=== PATIENT | female | born 1970 | race Caucasian/White ===

== ENCOUNTER 2019-06-27 11:16 | Observation (INO) | payer OTHER ==
[2019-06-27 12:10] LABS: Basophils % (A) 0 %; Eosinophils # (A) 0.1 k/uL (0-0.7); Eosinophils % (A) 2 %; HCT 38.3 % (34.0-46.0); HGB 12.3 gm/dL (11.4-16.0); Hypochromasia Slight; Lymphocytes # (A) 0.1 k/uL (1.0-4.8); Lymphocytes % (A) 2 %; MCH 31.3 pg (25.0-35.0); MCHC 32.2 g/dL (31.0-37.0); MCV 97.3 fL (80.0-100.0); Mean Platelet Volume 7.6; Monocytes # (A) 0.1 k/uL (0-1.0); Monocytes % (A) 2 %; Neutrophils # (A) 5.4 k/uL (1.3-7.7); Neutrophils % (A) 93 %; Platelet Count 414 k/uL (150-450); RBC 3.93 m/uL (3.80-5.40); RDW 15.5 % (11.5-15.5); WBC 5.8 k/uL (3.8-10.6)
[2019-06-27 12:15] LABS: Albumin 4.2 g/dL (3.5-5.0); Calcium 9.3 mg/dL (8.4-10.2); Potassium 4.6 mmol/L (3.5-5.1); Total Bilirubin 0.5 mg/dL (0.2-1.3); Total Protein 7.2 g/dL (6.3-8.2)
[2019-06-27 12:26] LABS: INR 0.8 (<1.2); Partial Thromboplastin Time 22.1 sec (22.0-30.0); Prothrombin Time 9.3 sec (9.0-12.0)
--- NOTE | 2019-06-27 12:26 | XR ---
EXAMINATION TYPE: XR chest 2V DATE OF EXAM: 06/27/2019 COMPARISON: Prior chest 03/26/2014 HISTORY: Chest pain and dizziness TECHNIQUE: Frontal and lateral views of the chest are obtained. FINDINGS: There are overlying cardiac leads. Probable artifacts over the proximal right humerus. Ther e is no focal air space opacity, pleural effusion, or pneumothorax seen. The cardiac silhouette size is within normal limits. The osseous structures are intact. Surgical clips present in the upper ab domen. IMPRESSION: No acute cardiopulmonary process.
[2019-06-27] MEDS ORDERED: NITROGLYCERIN SL TABS 0.4 MG TAB SUBLINGUAL STA ×3 (12:28)
--- NOTE | 2019-06-27 12:32 | ED ---
General Adult HPI - General Chief complaint: Chest Pain Stated complaint: Chest Pain Time Seen by Provider: 06/27/19 11:31 Source: patient, RN notes reviewed Mode of arrival: wheelchair Limitations: no limitations - History of Present Illness Initial comments: Patient is a [id number] female presenting to the emergency Department with complaints of chest discomfort. Onset of symptoms was this morning. Patient does have history of several symptoms previously, sometimes associated with work. Patient plaints of pressure in her chest currently rated 7/10. Patient did take aspirin this morning. Patient does have some associated dyspnea. No radiation. No nausea. - Related Data Home Medications Medication Instructions Recorded Confirmed Albuterol Sulfate [Proventil Hfa] 2 puff IH DAILY PRN 03/27/14 06/27/19 Atorvastatin [Lipitor] 20 mg PO HS 03/27/14 06/27/19 Ibuprofen [Motrin] 800 mg PO Q8HR PRN 03/27/14 06/27/19 Potassium Gluconate 99 mg PO DAILY 03/27/14 06/27/19 ARIPiprazole [Abilify] 10 mg PO HS 06/27/19 06/27/19 Baclofen [Lioresal] 20 mg PO BID 06/27/19 06/27/19 Cholecalciferol [Vitamin D3 (25 1,000 unit PO HS 06/27/19 06/27/19 Mcg = 1000 Iu)] DULoxetine HCL [Cymbalta] 60 mg PO HS 06/27/19 06/27/19 Melatonin 10 mg PO HS 06/27/19 06/27/19 diphenhydrAMINE HCL [Benadryl] 25 mg PO HS PRN 06/27/19 06/27/19 Allergies Allergy/AdvReac Type Severity Reaction Status Date / Time Penicillins Allergy Rash/Hives Verified 06/27/19 14:15 clindamycin HCl AdvReac Itching Verified 06/27/19 14:15 [From Cleocin] clindamycin palmitate HCl AdvReac Itching Verified 06/27/19 14:15 [From Cleocin] clindamycin phosphate AdvReac Itching Verified 06/27/19 14:15 [From Cleocin] escitalopram oxalate AdvReac SEVERE Verified 06/27/19 14:15 [From Lexapro] HEADACHE levofloxacin [From Levaquin] AdvReac Itching Verified 06/27/19 14:15 Review of Systems ROS Statement: Those systems with pertinent positive or pertinent negative responses have been documented in the HPI. ROS Other: All systems not noted in ROS Statement are negative. Constitutional: Denies: fever Eyes: Denies: eye pain ENT: Denies: ear pain Respiratory: Reports: as per HPI, dyspnea Cardiovascular: Reports: chest pain, palpitations Endocrine: Denies: fatigue Gastrointestinal: Denies: abdominal pain Genitourinary: Denies: dysuria Musculoskeletal: Denies: back pain Skin: Denies: rash Neurological: Denies: headache Past Medical History Past Medical History: Asthma, Chest Pain / Angina, COPD, Fibromyalgia, Hyperlipidemia, Hypertension Additional Past Medical History / Comment(s): VERTIGO History of Any Multi-Drug Resistant Organisms: None Reported Past Surgical History: Bariatric Surgery, Cholecystectomy, Hernia Repair, Tubal Ligation Additional Past Surgical History / Comment(s): GANGLION CYST FROM LT WRIST, CLAIRE-EN-Y 1999 Past Anesthesia/Blood Transfusion Reactions: No Reported Reaction Past Psychological History: Anxiety, Bipolar, Depression Smoking Status: Never smoker Past Alcohol Use History: None Reported Past Drug Use History: None Reported General Exam Limitations: no limitations General appearance: alert, in no apparent distress Head exam: Present: normocephalic Eye exam: Present: normal appearance ENT exam: Present: normal oropharynx Neck exam: Present: normal inspection Respiratory exam: Present: normal lung sounds bilaterally. Absent: chest wall tenderness Cardiovascular Exam: Present: regular rate, normal rhythm Expanded Peripheral pulses: 2+: Radial (R), Radial (L), Posterior Tibialis (R), Posterior Tibialis (L), Dorsalis Pedis (R), Dorsalis Pedis (L) GI/Abdominal exam: Present: soft. Absent: tenderness Extremities exam: Present: normal inspection. Absent: pedal edema, calf tenderness Neurological exam: Present: alert Psychiatric exam: Present: normal affect, normal mood Skin exam: Present: normal color Course Vital Signs 06/27/19 06/27/19 11:22 12:40 Temperature 97.8 F Pulse Rate 118 H 101 H Respiratory 21 18 Rate Blood Pressure 96/68 114/76 O2 Sat by Pulse 100 99 Oximetry EKG Findings - EKG Comments: EKG Findings:: Sinus tachycardia 107. MS 138. QRS 86. QT 348. QTC 46 he 4. Left axis. Septal Q waves. No acute ST change. Medical Decision Making - Medical Decision Making Patient reevaluated and updated. Case was discussed in detail with Dr. Otto, who will admit covered for hospital call. - Lab Data Result diagrams: 06/27/19 11:41 06/27/19 11:41 Lab Results 06/27/19 06/27/19 06/27/19 Range/Units 11:41 11:41 11:41 WBC 5.8 (3.8-10.6) k/uL RBC 3.93 (3.80-5.40) m/uL Hgb 12.3 (11.4-16.0) gm/dL Hct 38.3 (34.0-46.0) % MCV 97.3 (80.0-100.0) fL MCH 31.3 (25.0-35.0) pg MCHC 32.2 (31.0-37.0) g/dL RDW 15.5 (11.5-15.5) % Plt Count 414 (150-450) k/uL Neutrophils % 93 % Lymphocytes % 2 % Monocytes % 2 % Eosinophils % 2 % Basophils % 0 % Neutrophils # 5.4 (1.3-7.7) k/uL Lymphocytes # 0.1 L (1.0-4.8) k/uL Monocytes # 0.1 (0-1.0) k/uL Eosinophils # 0.1 (0-0.7) k/uL Basophils # 0.0 (0-0.2) k/uL Hypochromasia Slight PT 9.3 (9.0-12.0) sec INR 0.8 (<1.2) APTT 22.1 (22.0-30.0) sec D-Dimer (<0.60) mg/L FEU Sodium 139 (137-145) mmol/L Potassium 4.6 (3.5-5.1) mmol/L Chloride 112 H (98-107) mmol/L Carbon Dioxide 16 L (22-30) mmol/L Anion Gap 11 mmol/L BUN 32 H (7-17) mg/dL Creatinine 1.01 (0.52-1.04) mg/dL Est GFR (CKD-EPI)AfAm 75 (>60 ml/min/1.73 sqM) Est GFR (CKD-EPI)NonAf 65 (>60 ml/min/1.73 sqM) Glucose 135 H (74-99) mg/dL Calcium 9.3 (8.4-10.2) mg/dL Total Bilirubin 0.5 (0.2-1.3) mg/dL AST 46 H (14-36) U/L ALT 27 (4-34) U/L Alkaline Phosphatase 78 (38-126) U/L Troponin I (0.000-0.034) ng/mL Total Protein 7.2 (6.3-8.2) g/dL Albumin 4.2 (3.5-5.0) g/dL 06/27/19 06/27/19 Range/Units 11:41 11:41 WBC (3.8-10.6) k/uL RBC (3.80-5.40) m/uL Hgb (11.4-16.0) gm/dL Hct (34.0-46.0) % MCV (80.0-100.0) fL MCH (25.0-35.0) pg MCHC (31.0-37.0) g/dL RDW (11.5-15.5) % Plt Count (150-450) k/uL Neutrophils % % Lymphocytes % % Monocytes % % Eosinophils % % Basophils % % Neutrophils # (1.3-7.7) k/uL Lymphocytes # (1.0-4.8) k/uL Monocytes # (0-1.0) k/uL Eosinophils # (0-0.7) k/uL Basophils # (0-0.2) k/uL Hypochromasia PT (9.0-12.0) sec INR (<1.2) APTT (22.0-30.0) sec D-Dimer 1.41 H (<0.60) mg/L FEU Sodium (137-145) mmol/L Potassium (3.5-5.1) mmol/L Chloride (98-107) mmol/L Carbon Dioxide (22-30) mmol/L Anion Gap mmol/L BUN (7-17) mg/dL Creatinine (0.52-1.04) mg/dL Est GFR (CKD-EPI)AfAm (>60 ml/min/1.73 sqM) Est GFR (CKD-EPI)NonAf (>60 ml/min/1.73 sqM) Glucose (74-99) mg/dL Calcium (8.4-10.2) mg/dL Total Bilirubin (0.2-1.3) mg/dL AST (14-36) U/L ALT (4-34) U/L Alkaline Phosphatase (38-126) U/L Troponin I <0.012 (0.000-0.034) ng/mL Total Protein (6.3-8.2) g/dL Albumin (3.5-5.0) g/dL - Radiology Data Radiology results: report reviewed (CT angios of the chest shows breathing during exam. No large central pulmonary embolism, otherwise limited. No acute process seen. Postsurgical changes upper abdomen. Possible underlying hiatal hernia versus thickening of the distal esophagus.), image reviewed (Chest x-ray shows no acute process.) Disposition Clinical Impression: Chest pain Disposition: ADMITTED IP TO THIS HOSP Is patient prescribed a controlled substance at d/c from ED?: No Referrals: Daniel Sauceda DO [Primary Care Provider] - 1-2 days Decision Time: 14:24
--- NOTE | 2019-06-27 14:02 | CT ---
EXAMINATION TYPE: CT angio chest DATE OF EXAM: 06/27/2019 COMPARISON: Radiograph same day HISTORY: 48-year-old female Chest pain, shortness of breath and cough TECHNIQUE: Contiguous axial scanning of the chest performed with IV Contrast, patient injected with 1 00 mL of Isovue 370. Coronal/sagittal MIP reconstructions performed. CT DLP: 387.2 mGycm Automated exposure control for dose reduction was used. FINDINGS: Heart normal size with trace anterior pericardial fluid/thickening and no flattening of the intervent ricular septum or reflux of contrast into the hepatic veins. There is extensive motion artifact with the patient breathing during the scan. Aorta normal caliber with bovine configuration to the aortic arch. Satisfactory opacification of the pulmonary arterial system. No large central pulmonary embolus. The degree of motion artifact limits assessment for pulmonary emboli within the lobar, segmental, and mor e distal arterial branches. No thoracic lymphadenopathy by CT size criteria. No consolidation or pleural effusion seen. Postsurgical change in the upper abdomen possible Valdemar-en-Y gastric bypass. There may be an underlyin g hiatal hernia versus irregular circumferential wall thickening of the distal esophagus, axial image 95. Cholecystectomy clips. Bones: No osseous destructive process. IMPRESSION: 1. THE PATIENT WAS FREE BREATHING DURING THE SCAN. NO LARGE CENTRAL PULMONARY EMBOLUS. MANY OF THE LO BAR, SEGMENTAL, AND MORE DISTAL ARTERIAL BRANCHES ARE ESSENTIALLY NONDIAGNOSTIC AND EMBOLI IN THESE L OCATIONS CANNOT BE ADEQUATELY EXCLUDED ON BASIS OF THIS STUDY. 2. NO ACUTE PULMONARY PROCESS SEEN. 3. POST SURGICAL CHANGE IN THE UPPER ABDOMEN, QUERY PRIOR VALDEMAR-EN-Y GASTRIC BYPASS. THERE IS EITHER A N UNDERLYING HIATAL HERNIA VERSUS IRREGULAR CIRCUMFERENTIAL WALL THICKENING OF THE DISTAL ESOPHAGUS. DIRECT VISUALIZATION RECOMMENDED TO EXCLUDE NEOPLASM.
[2019-06-27] MEDS ORDERED: NITROGLYCERIN SL TABS 0.4 MG TAB SUBLINGUAL PRN (14:24)
--- NOTE | 2019-06-27 16:28 | NM ---
EXAMINATION TYPE: NM pul vent and perfuse DATE OF EXAM: 06/27/2019 COMPARISON: Correlation CT chest same day HISTORY: 48-year-old female with shortness of breath and dyspnea TECHNIQUE: Utilizing inhalation of 41.4 mCi Tc 99m DTPA aerosol and intravenous injection of 4.4 mCi of Tc 99m MAA, ventilation and perfusion images are acquired post injection in multiple projections. FINDINGS: Technologist notes: Patient's arms were down during image acquisition. Normal radiotracer distribution is noted in the lungs. There is no evidence of mismatched defects. IMPRESSION: Very low probability for pulmonary embolus.
[2019-06-27] MEDS ORDERED: ALBUTEROL NEBULIZED 2.5 MG/3 ML INHALATION PRN (16:42)
[2019-06-27] MEDS ORDERED: MELATONIN 5 MG TABLET PO PRN (16:42)
[2019-06-27] MEDS ORDERED: SODIUM CHLORIDE 0.9% 1,000 ML IV SCH (16:45)
[2019-06-27] MEDS: SODIUM CHLORIDE 0.45% 1,000 ML IV SCH (16:56)
[2019-06-27 17:15] VITALS: RESP 18
[2019-06-27] MEDS: PANTOPRAZOLE 40 MG/10 ML VIAL IVP SCH (17:44)
--- NOTE | 2019-06-27 18:34 | P.HPIM ---
History of Present Illness Patient wasn't-year-old female came in with compensative chest burning sensation sensation which started today in the retrosternal area nonradiating and not associated with fever chills cough not associated diaphoresis chest pain res olved and patient was having some palpitations. Patient does have sinus tachycardia TSH will be obtained. Patient will be admitted to rule out acute coronary syndromes. Patient chest pain is mostly in assessment is not related to food not related to deep breathing but because of tachycardia and chest and patient underwent the CT angios the chest which was inconclusive because of which patient underwent VQ scan which did not show any evidence of a low probability of PE and patient was complaining of some nausea associated chest pain. Review of Systems REVIEW OF SYSTEMS: CONSTITUTIONAL: No fever, no malaise, no fatigue. HEENT: No recent visual problems or hearing problems. Denied any sore throat. CARDIOVASCULAR: No , orthopnea, PND, no palpitations, no syncope. PULMONARY: No shortness of breath, no cough, no hemoptysis. GASTROINTESTINAL: No diarrhea, NEUROLOGICAL: No headaches, no weakness, no numbness. HEMATOLOGICAL: Denies any bleeding or petechiae. GENITOURINARY: Denies any burning micturition, frequency, or urgency. MUSCULOSKELETAL/RHEUMATOLOGICAL: Denies any joint pain, swelling, or any muscle pain. ENDOCRINE: Denies any polyuria or polydipsia. The rest of the 14-point review of systems is negative. Past Medical History Past Medical History: Asthma, Blood Disorder, Cancer, Chest Pain / Angina, COPD, Fibromyalgia, Hyperlipidemia, Hypertension, Respiratory Disorder, Syncope Additional Past Medical History / Comment(s): VERTIGO, anemia with blood transfusion in 2003, skin CA on face, arthritis, broncitis, syncope History of Any Multi-Drug Resistant Organisms: None Reported Past Surgical History: Bariatric Surgery, Cholecystectomy, Hernia Repair, Tubal Ligation Additional Past Surgical History / Comment(s): GANGLION CYST FROM LT WRIST, CLIARE-EN-Y 1999, arthritis on left hand Past Anesthesia/Blood Transfusion Reactions: No Reported Reaction Past Psychological History: Anxiety, Bipolar, Depression Smoking Status: Never smoker Past Alcohol Use History: None Reported Past Drug Use History: None Reported - Past Family History Father Family Medical History: Diabetes Mellitus, Hypertension Additional Family Medical History / Comment(s): cad with 6 stents Mother Family Medical History: Fibromyalgia Sister(s) Family Medical History: Asthma Daughter(s) Family Medical History: Asthma Son(s) Additional Family Medical History / Comment(s): adhd Medications and Allergies Home Medications Medication Instructions Recorded Confirmed Type Albuterol Sulfate [Proventil Hfa] 2 puff IH DAILY PRN 03/27/14 06/27/19 History Atorvastatin [Lipitor] 20 mg PO HS 03/27/14 06/27/19 History Ibuprofen [Motrin] 800 mg PO Q8HR PRN 03/27/14 06/27/19 History Potassium Gluconate 99 mg PO DAILY 03/27/14 06/27/19 History ARIPiprazole [Abilify] 10 mg PO HS 06/27/19 06/27/19 History Acetaminophen [Tylenol] 325 mg PO Q6H PRN 06/27/19 06/27/19 History Baclofen [Lioresal] 20 mg PO TID PRN 06/27/19 06/27/19 History Cholecalciferol [Vitamin D3 (25 1,000 unit PO HS 06/27/19 06/27/19 History Mcg = 1000 Iu)] DULoxetine HCL [Cymbalta] 60 mg PO HS 06/27/19 06/27/19 History Melatonin 10 mg PO HS 06/27/19 06/27/19 History busPIRone HCL 5 mg PO BID 06/27/19 06/27/19 History diphenhydrAMINE HCL [Benadryl] 25 mg PO HS PRN 06/27/19 06/27/19 History Allergies Allergy/AdvReac Type Severity Reaction Status Date / Time Penicillins Allergy Rash/Hives Verified 06/27/19 14:15 clindamycin HCl AdvReac Itching Verified 06/27/19 14:15 [From Cleocin] clindamycin palmitate HCl AdvReac Itching Verified 06/27/19 14:15 [From Cleocin] clindamycin phosphate AdvReac Itching Verified 06/27/19 14:15 [From Cleocin] escitalopram oxalate AdvReac SEVERE Verified 06/27/19 14:15 [From Lexapro] HEADACHE levofloxacin [From Levaquin] AdvReac Itching Verified 06/27/19 14:15 Physical Exam Vitals: Vital Signs Temp Pulse Pulse Resp BP BP Pulse Ox 06/27/19 17:13 98.2 F 102 H 18 108/74 100 06/27/19 16:57 98.6 F 112 H 20 101/72 100 06/27/19 12:40 101 H 18 114/76 99 06/27/19 11:22 97.8 F 118 H 21 96/68 100 Intake and Output 06/27/19 06/27/19 06/27/19 06:59 14:59 22:59 Other: Voiding Method Toilet Weight 96.615 kg 96.615 kg PHYSICAL EXAMINATION: GENERAL: The patient is alert and oriented x3, not in any acute distress. Well developed, well nourished. HEENT: Pupils are round and equally reacting to light. EOMI. No scleral icterus. No conjunctival pallor. Normocephalic, atraumatic. No pharyngeal erythema. No thyromegaly. CARDIOVASCULAR: S1 and S2 present. No murmurs, rubs, or gallops. Sinus tachycardia PULMONARY: Chest is clear to auscultation, no wheezing or crackles. ABDOMEN: Soft, nontender, nondistended, normoactive bowel sounds. No palpable organomegaly. MUSCULOSKELETAL: No joint swelling or deformity. EXTREMITIES: No cyanosis, clubbing, or pedal edema. NEUROLOGICAL: Gross neurological examination did not reveal any focal deficits. SKIN: No rashes. Results CBC & Chem 7: 06/27/19 11:41 06/27/19 11:41 Labs: Abnormal Lab Results - Last 24 Hours (Table) 06/27/19 06/27/19 06/27/19 Range/Units 11:41 11:41 11:41 Lymphocytes # 0.1 L (1.0-4.8) k/uL D-Dimer 1.41 H (<0.60) mg/L FEU Chloride 112 H (98-107) mmol/L Carbon Dioxide 16 L (22-30) mmol/L BUN 32 H (7-17) mg/dL Glucose 135 H (74-99) mg/dL AST 46 H (14-36) U/L Thrombosis Risk Factor Assmnt - Choose All That Apply Any of the Below Risk Factors Present?: Yes Each Factor Represents 1 point: Abnormal pulmonary function (COPD), Age 41-60 years, Obesity (BMI >25) Other Risk Factors: No Other congenital or acquired thrombophilia - If yes, enter type in comment: No Thrombosis Risk Factor Assessment Total Risk Factor Score: 3 Thrombosis Risk Factor Assessment Level: Moderate Risk Assessment and Plan Plan: -Chest pain: Patient will be admitted to rule out a acute Coronary syndromes unstable angina patient may have gastroesophageal reflux disease Motrin will be held patient will be started on Protonix. Patient was complaining of for symptoms of viral gastroenteritis patient did admit to exposures to people with influenza. She may have viral gastroenteritis although had only couple episodes of diarrhea. He ALLERGY for her chest pain -Tachycardia secondary to intravascular depletion from a possible viral gastroenteritis patient was started on IV fluids TSH will be obtained -Asthma without any acute exacerbation -Fibromyalgia -Hyperlipidemia For depression For above-mentioned chronic medical problems patient will be resumed on appropriate home medications
[2019-06-27] MEDS: NITROGLYCERIN OINT 1 INCH/GM PACKET TOPICAL SCH ×2 (19:27→23:28)
[2019-06-27] MEDS: busPIRone HCl 5 MG TAB PO SCH (20:29)
[2019-06-27] MEDS: ACETAMINOPHEN TAB 325 MG TAB PO PRN (20:32)
[2019-06-27] MEDS: BACLOFEN 10 MG TAB PO PRN (20:33)
[2019-06-27] MEDS ORDERED: ATORVASTATIN 20 MG TAB PO SCH (21:00)
[2019-06-27] MEDS ORDERED: DULoxetine HCL 60 MG CAPSULE.DR PO SCH (21:00)
[2019-06-27] MEDS ORDERED: ARIPiprazole 10 MG TAB PO SCH (21:00)
[2019-06-27] MEDS ORDERED: IBUPROFEN 400 MG TAB PO STA (23:15)
[2019-06-28] MEDS: SODIUM CHLORIDE 0.45% 1,000 ML IV SCH (02:55)
[2019-06-28] MEDS: LOPERAMIDE 2 MG CAP PO PRN ×2 (04:24→16:34)
[2019-06-28] MEDS: NITROGLYCERIN OINT 1 INCH/GM PACKET TOPICAL SCH (05:25)
[2019-06-28 06:51] LABS: HCT 31.1 % (34.0-46.0); Hypochromasia Slight; MCH 31.1 pg (25.0-35.0); MCHC 31.3 g/dL (31.0-37.0); MCV 99.6 fL (80.0-100.0); Macrocytosis Slight; Mean Platelet Volume 7.2; Platelet Count 285 k/uL (150-450); RBC 3.13 m/uL (3.80-5.40); RDW 15.5 % (11.5-15.5); WBC 3.7 k/uL (3.8-10.6)
[2019-06-28 07:04] LABS: Calcium 7.7 mg/dL (8.4-10.2); Potassium 3.5 mmol/L (3.5-5.1)
[2019-06-28 07:42] LABS: HGB 9.7 gm/dL (11.4-16.0)
[2019-06-28] MEDS ORDERED: DOBUTamine DRIP for NUC MED 500 MG in DEXTROSE/WATER 1 250ML.BAG IV ONE (08:19)
--- NOTE | 2019-06-28 08:51 | CONS ---
CONSULTATION Mrs. Vasquez is a 48-year-old female with known history of hyperlipidemia, who presented with symptoms of palpitation, dizziness, dyspnea and presyncope. She has been having those symptoms on and off for the last few months, worse now, occurring sometime at rest. Yesterday, she had an episode that was longer than usual, felt the palpitation and felt chest discomfort and felt quite dizzy and nauseated. Because of that, she came into the emergency room. In the emergency room, she was noted to be in sinus tachycardia. Patient is not very active physically. She has dyspnea on exertion, but no clear anginal pain. She has never had syncope, but she has been having the palpitation on and off as noted. In 2013, she has underwent coronary angiography that showed no evidence of obstructive coronary disease. The patient has no documented history of PND, orthopnea, or peripheral edema. She has no history of malignant arrhythmia in the past. She has underwent an event monitor in [facility] 3 weeks ago and she is not sure about the results. Her coronary risk factors are remarkable for hyperlipidemia. She is nonsmoker, nondiabetic. MEDICATION: At home included Toprol-XL 25 mg daily, Lipitor 20 mg daily, Motrin, Proventil, Abilify, Benadryl, Tylenol, , buspirone and Cymbalta. REVIEW OF SYSTEMS: RESPIRATORY SYSTEM: She has history of asthma. No recent wheezing. No history of recent lung infection. GI SYSTEM: She had some nausea yesterday, but not on a regular basis. No GI bleeding. SYSTEM: No dysuria or hematuria. NERVOUS SYSTEM: No stroke or seizure. SOCIAL HISTORY: She drinks 1 caffeinated beverage daily. No alcohol intake. Nonsmoker. PHYSICAL EXAMINATION: She is a 48-year-old female, alert, oriented, in no apparent distress. Blood pressure 104/60 with a heart rate in the 60s. HEAD: Normocephalic. EYES: Sclerae nonicteric. NECK: Good upstroke, no bruit, no venous distention. LUNGS: Clear to auscultation. HEART: Regular rate and rhythm. S1, S2. No S3. No S4 with a systolic murmur heard at the base. No diastolic murmur, no rub. ABDOMEN: Soft, nontender, positive bowel sounds, no organomegaly. EXTREMITIES: No edema, intact pulses. LAB DATA: Revealed BUN and creatinine 32 and 1.01, potassium 4.6. Her troponin less than 0.012, 0.018 and less than 0.012. Cholesterol 126, LDL of 36, HDL of 69. Her TSH is 1.2, hemoglobin is down to 9.7 was 12.3 yesterday. EKG revealed a sinus mechanism, rate of 107, left axis deviation, nonspecific ST-T which Re the ST-T wave changes with poor R-wave progression. Ventilation perfusion scan was very low probability for pulmonary embolism. IMPRESSION: 1. Symptoms of dizziness, palpitation, chest discomfort. So far only sinus tachycardia has been documented. There is no evidence of acute coronary syndrome. 2. Possible dehydration. 3. Anemia. 4. History of hyperlipidemia. RECOMMENDATION: From the cardiac standpoint, will try to obtain the results for event monitor. I would recommend to proceed with a transthoracic echocardiogram and a dobutamine stress test to rule out any significant obstructive disease and depending on those findings, further recommendation will be made. Thank you for this consult. Will follow with you. MMODL / IJN: [id number] /
[2019-06-28] MEDS ORDERED: METOPROLOL SUCCINATE (ER) 25 MG TAB.ER.24H PO SCH (09:00)
[2019-06-28] MEDS ORDERED: ASPIRIN 325 MG TAB PO SCH (09:00)
[2019-06-28] MEDS ORDERED: ASPIRIN 81 MG PO SCH (09:00)
[2019-06-28 11:26] VITALS: BP 100/67; PULSE 93; TEMP 97.4
[2019-06-28] MEDS: ACETAMINOPHEN TAB 325 MG TAB PO PRN (11:27)
[2019-06-28] MEDS: PANTOPRAZOLE 40 MG/10 ML VIAL IVP SCH (11:30)
[2019-06-28] MEDS: busPIRone HCl 5 MG TAB PO SCH (11:30)
[2019-06-28] MEDS: BACLOFEN 10 MG TAB PO PRN (11:30)
--- NOTE | 2019-06-28 14:00 | ECHOS ---
STRESS ECHOCARDIOGRAM INDICATIONS: Chest pain. BASELINE HEART RATE: 84 BASELINE BLOOD PRESSURE: 107/67 MAXIMUM HEART RATE: 147 MAXIMUM BLOOD PRESSURE: 113/59 85% MPHR: 145 100% MPHR: 170 MAXIMUM STAGE REACHED: 3 TOTAL EXERCISE TIME: 11:14 CLINICAL INFORMATION: Baseline rhythm is sinus mechanism, rate of 84, left axis deviation poor R-wave progression connects with anteroseptal myocardial infarction. Nonspecific ST-T wave changes, baseline blood pressure 107/67 mmHg. Patient received infusion of dobutamine per protocol, peak rate 147 beats per minute which is equal to 85% maximum predicted heart rate. Peak blood pressure 113/59 mmHg. Electrocardiograph monitoring revealed rare PVCs. There was no evidence of diagnostic ischemic ST deviation. FINDINGS: Baseline echocardiogram revealed normal wall motion. At peak exercise, there was normal wall motion augmentation with no hypokinesis or dyskinesis. CONCLUSION: 1. Nondiagnostic electrocardiographic response to dobutamine infusion secondary to baseline EKG abnormality. 2. Normal stress echocardiogram with no evidence of stress-induced ischemia. MMODL / IJN: [id number] /
--- NOTE | 2019-06-28 16:30 | P.DS ---
Providers Date of admission: 06/27/19 14:24 Attending physician: Terrence Alexandre MD Consults: 06/27/19 14:24 Consult Physician Urgent Consulting Provider: Taco Moreno Consult Reason/Comments: cp Do you want consulting provider notified?: Yes Primary care physician: [facility] Course: Patient is admitted for chest pain ruled out acute coronary syndromes after which patient underwent the stress test which was negative for any inducible ischemia patient is being discharged today patient probably has gastroesophageal reflux disease Motrin is being discontinued patient will be discharged on 14 days of Prilosec. TSH within normal limits sinus tachycardia resolved PHYSICAL EXAMINATION: GENERAL: The patient is alert and oriented x3, not in any acute distress. Well developed, well nourished. HEENT: Pupils are round and equally reacting to light. EOMI. No scleral icterus. No conjunctival pallor. Normocephalic, atraumatic. No pharyngeal erythema. No thyromegaly. CARDIOVASCULAR: S1 and S2 present. No murmurs, rubs, or gallops. PULMONARY: Chest is clear to auscultation, no wheezing or crackles. ABDOMEN: Soft, nontender, nondistended, normoactive bowel sounds. No palpable organomegaly. MUSCULOSKELETAL: No joint swelling or deformity. EXTREMITIES: No cyanosis, clubbing, or pedal edema. NEUROLOGICAL: Gross neurological examination did not reveal any focal deficits. SKIN: No rashes. For rest of other medical problems that were addressed. Please refer to my HPI Plan - Discharge Summary Discharge Rx Participant: Yes New Discharge Prescriptions: New Omeprazole [PriLOSEC] 40 mg PO AC-BRKFST #14 capsule. Continue Atorvastatin [Lipitor] 20 mg PO HS Potassium Gluconate 99 mg PO DAILY Albuterol Sulfate [Proventil Hfa] 2 puff IH DAILY PRN PRN Reason: RESCUE INHALER ARIPiprazole [Abilify] 10 mg PO HS Baclofen [Lioresal] 20 mg PO TID PRN PRN Reason: MUSCLE SPASMS Cholecalciferol [Vitamin D3 (25 Mcg = 1000 Iu)] 1,000 unit PO HS diphenhydrAMINE HCL [Benadryl] 25 mg PO HS PRN PRN Reason: SLEEP DULoxetine HCL [Cymbalta] 60 mg PO HS Melatonin 10 mg PO HS busPIRone HCL 5 mg PO BID Acetaminophen [Tylenol] 325 mg PO Q6H PRN PRN Reason: Pain Discontinued Ibuprofen [Motrin] 800 mg PO Q8HR PRN PRN Reason: Pain Discharge Medication List Albuterol Sulfate [Proventil Hfa] 2 puff IH DAILY PRN 03/27/14 [History] Atorvastatin [Lipitor] 20 mg PO HS 03/27/14 [History] Potassium Gluconate 99 mg PO DAILY 03/27/14 [History] ARIPiprazole [Abilify] 10 mg PO HS 06/27/19 [History] Acetaminophen [Tylenol] 325 mg PO Q6H PRN 06/27/19 [History] Baclofen [Lioresal] 20 mg PO TID PRN 06/27/19 [History] Cholecalciferol [Vitamin D3 (25 Mcg = 1000 Iu)] 1,000 unit PO HS 06/27/19 [History] DULoxetine HCL [Cymbalta] 60 mg PO HS 06/27/19 [History] Melatonin 10 mg PO HS 06/27/19 [History] busPIRone HCL 5 mg PO BID 06/27/19 [History] diphenhydrAMINE HCL [Benadryl] 25 mg PO HS PRN 06/27/19 [History] Omeprazole [PriLOSEC] 40 mg PO AC-BRKFST #14 capsule. 06/28/19 [Rx] Follow up Appointment(s)/Referral(s): Gerson Lora MD [STAFF PHYSICIAN] - 1 Week Daniel Sauceda DO [Primary Care Provider] - 1-2 days Patient Instructions/Handouts: Chest Pain (DC) Care Plan Goals (MU): patient can resume work on Monday
--- NOTE | 2019-06-28 20:07 | ECHOF ---
Referral Reason:cp MEASUREMENTS -------- HEIGHT: 162.6 cm WEIGHT: 96.6 kg BP: 104/61 RVIDd: 3.0 cm (< 3.3) IVSd: 1.1 cm (0.6 - 1.1) LVIDd: 4.3 cm (3.9 - 5.3) LVPWd: 1.1 cm (0.6 - 1.1) IVSs: 1.3 cm LVIDs: 2.8 cm LVPWs: 1.4 cm LA Diam: 3.1 cm (2.7 - 3.8) LAESV Index (A-L): 18.58 ml/m Ao Diam: 3.3 cm (2.0 - 3.7) AV Cusp: 2.2 cm (1.5 - 2.6) MV EXCURSION: 16.920 mm (> 18.000) MV EF SLOPE: 69 mm/s (70 - 150) EPSS: 0.7 cm MV E Param: 0.76 m/s MV DecT: 234 ms MV A Param: 1.19 m/s MV E/A Ratio: 0.63 RAP: 5.00 mmHg RVSP: 27.38 mmHg FINDINGS -------- Sinus rhythm. This was a technically good study. The left ventricular size is normal. There is borderline concentric left ventricular hypertrophy. Overall left ventricular systolic function is normal with, an EF between 55 - 60 %. The right ventricle is normal in size. Normal LA size by volume 22+/-6 ml/m2. The right atrial size is normal. Interatrial and interventricular septum intact. The aortic valve is trileaflet, and appears structurally normal. No aortic stenosis or regurgitation. The mitral valve is normal. There is trace mitral regurgitation. Mild tricuspid regurgitation present. Right ventricular systolic pressure is normal at < 35 mmHg. Trace/mild (physiologic) pulmonic regurgitation. The aortic root size is normal. Normal inferior vena cava with normal inspiratory collapse consistent with estimated right atrial pre ssure of 5 mmHg. There is no pericardial effusion. CONCLUSIONS -------- 1. Sinus rhythm. 2. This was a technically good study. 3. The left ventricular size is normal. 4. There is borderline concentric left ventricular hypertrophy. 5. Overall left ventricular systolic function is normal with, an EF between 55 - 60 %. 6. Normal LA size by volume 22+/-6 ml/m2. 7. The aortic valve is trileaflet, and appears structurally normal. No aortic stenosis or regurgitati on. 8. There is trace mitral regurgitation. 9. Mild tricuspid regurgitation present. 10. Right ventricular systolic pressure is normal at < 35 mmHg. 11. Trace/mild (physiologic) pulmonic regurgitation. 12. Normal inferior vena cava with normal inspiratory collapse consistent with estimated right atrial pressure of 5 mmHg. 13. There is no pericardial effusion. TAPE SEWER: Jessica Perez RDCS
== END 2019-06-28 17:43 | disposition home or self-care (01) ==
LOC: EC 11:16 → 1SOBS 14:24
PROVIDERS: ADMIT Internal Medicine; ATTEND Internal Medicine
DX: R07.89 Other chest pain (principal); E86.9 Volume depletion, unspecified; J44.9 Chronic obstructive pulmonary disease, unspecified; M79.7 Fibromyalgia; E78.5 Hyperlipidemia, unspecified; D64.9 Anemia, unspecified; R94.31 Abnormal electrocardiogram [ECG] [EKG]; R93.3 Abnormal findings on diagnostic imaging of other parts of digestive tract; I07.1 Rheumatic tricuspid insufficiency; I10 Essential (primary) hypertension; F41.9 Anxiety disorder, unspecified; F31.9 Bipolar disorder, unspecified; M19.90 Unspecified osteoarthritis, unspecified site; E66.9 Obesity, unspecified; Z68.36 Body mass index [BMI] 36.0-36.9, adult; Z79.899 Other long term (current) drug therapy; Z79.1 Long term (current) use of non-steroidal anti-inflammatories (NSAID); Z88.0 Allergy status to penicillin; Z88.1 Allergy status to other antibiotic agents; Z88.8 Allergy status to other drugs, medicaments and biological substances; Z98.84 Bariatric surgery status; Z90.49 Acquired absence of other specified parts of digestive tract; Z98.890 Other specified postprocedural states; Z98.51 Tubal ligation status; Z86.2 Personal history of diseases of the blood and blood-forming organs and certain disorders involving the immune mechanism; Z85.828 Personal history of other malignant neoplasm of skin; Z87.09 Personal history of other diseases of the respiratory system; Z83.3 Family history of diabetes mellitus; Z82.49 Family history of ischemic heart disease and other diseases of the circulatory system; Z82.69 Family history of other diseases of the musculoskeletal system and connective tissue; Z82.5 Family history of asthma and other chronic lower respiratory diseases; Z81.8 Family history of other mental and behavioral disorders
CPT/HCPCS: 93005 ×2; 96361; 96374; 96376; 99285; 36415; 93306; 93351; 85379; 80061; 80053; 80048; 84443; 84484; 85025; 85027; 85610; 85730; 87324; 71046; 71275; 78582; G0378 ×2; A9540; A9567; J1250; C9113 ×2; Q9967

== ENCOUNTER → 2021-07-30 | Outpatient (CLI) | payer OTHER ==
--- NOTE | 2021-07-31 00:50 | MR ---
EXAMINATION TYPE: MR thoracic spine wo con DATE OF EXAM: 07/30/2021 COMPARISON: None HISTORY: Mid back pain due to work related injury on 2020 Multiplanar multiecho imaging of the thoracic spine without contrast. The vertebra have normal alignment. Disc spaces are fairly normal. Thoracic spinal cord has normal si gnal pattern. There is no edema. There is no thoracic spinal stenosis. There is no compression fractu re. Cervical spine is intact. There is no thoracic paraspinal mass. IMPRESSION: Negative MRI scan of the thoracic spine. No evidence of traumatic injury. No evidence of any signific ant arthritic disease.
== END | disposition home or self-care (01) ==
LOC: RADMRIMAIN 15:27
PROVIDERS: ATTEND Internal Medicine
DX: M54.9 Dorsalgia, unspecified (principal)
CPT/HCPCS: 72146

== ENCOUNTER → 2022-04-20 | Outpatient (CLI) | payer OTHER ==
[2022-04-20 15:05] VITALS: BP 114/81; PULSE 57; RESP 16; TEMP 98.4; BMI 37.4
--- NOTE | 2022-04-20 15:07 | P.HPBAR ---
Bariatric H&P - History & Physicial H&P Date: 04/20/22 History & Physicial: Visit/CC: kelly muhammad Patient initial contact: Initial weight: 137.438 kg Initial weight in pounds: 303.00 Height: 5 ft 5 in Initial BMI: 50.4 Last weight: Current weight: 102.058 kg Current weight in pounds: 225.00 Current BMI: 37.4 [place] body weight (based on NIH guidelines): 56.699 kg Excess body weight loss: 43.8% The patient is a 51 year-old F who presents for Bariatric Assessment. She comes in with history of gastric bypass in 1999. She is seeking a panniculectomy. BMI 37.4 Weight loss of 75 pounds. 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 No prescriptions used. She uses AD ointment. She reports chronic back pain with chiropractor. She has not spoken to her PCP. Highest weight of 303 pounds. Lowest weight of 185 pounds. No weight loss follow-up. Needs bariatric labs. No dysphagia. She has epigastric pain at the hiatus. She has pressure. She has stricture of bypass. Recommend EGD and labs. She has lost 15 pounds in 2 months. Past Medical History Past Medical History: Asthma, Blood Disorder, Cancer, Chest Pain / Angina, COPD, Fibromyalgia, Hyperlipidemia, Hypertension, Respiratory Disorder, Syncope Additional Past Medical History / Comment(s): VERTIGO, anemia with blood transfusion in 2003, skin CA on face, arthritis, broncitis, syncope History of Any Multi-Drug Resistant Organisms: None Reported Past Surgical History: Bariatric Surgery, Cholecystectomy, Hernia Repair, Tubal Ligation Additional Past Surgical History / Comment(s): GANGLION CYST FROM LT WRIST, CLAIRE-EN-Y 1999, arthritis on left hand Past Anesthesia/Blood Transfusion Reactions: No Reported Reaction Smoking Status: Unknown if ever smoked - Past Family History Father Family Medical History: Diabetes Mellitus, Hypertension Additional Family Medical History / Comment(s): cad with 6 stents Mother Family Medical History: Fibromyalgia Sister(s) Family Medical History: Asthma Daughter(s) Family Medical History: Asthma Son(s) Additional Family Medical History / Comment(s): adhd Surgical - Exam Vital Signs Temp Pulse Resp BP 98.4 F 57 L 16 114/81 04/20/22 15:01 04/20/22 15:01 04/20/22 15:01 04/20/22 15:01 Bariatric Checklist Checklist: Plan: Checklist: EGD: 1. Hiatal hernia: 2. H. Pylori: HgbA1c: Vitamin D: Smoking: Never smoker Primary care physician referral: hector [facility] Psychiatry clearance: Cardiology clearance: Sleep study: Diet journal: VTE risk score: VTE risk level: Rehab needs at discharge:
== END | disposition home or self-care (01) ==
LOC: BARWHC3 13:54
PROVIDERS: ATTEND Surgery Plastic and Reconstructive Surgery
DX: E66.01 Morbid (severe) obesity due to excess calories (principal)
CPT/HCPCS: 99211

== ENCOUNTER → 2022-05-05 | Outpatient (CLI) | payer OTHER ==
[2022-05-05 14:47] LABS: INR 0.9 (<1.2); Partial Thromboplastin Time 24.5 sec (22.0-30.0); Prothrombin Time 10.3 sec (9.0-12.0)
[2022-05-05 18:35] LABS: HCT 42.4 % (37.2-46.3); HGB 13.4 g/dL (12.0-15.0); MCH 32.2 pg (27.0-32.0); MCHC 31.6 g/dL (32.0-37.0); MCV 101.9 fL (80.0-97.0); Mean Platelet Volume 10.9 fL (9.5-12.2); NRBC Per 100 WBC 0 /100 WBCS (0.0-0.0); Platelet Count 317 X 10*3/uL (140-440); RBC 4.16 X 10*6/uL (4.10-5.20); RDW 12.3 % (11.5-14.5)
[2022-05-05 18:46] LABS: Chol/HDL Ratio 2.24 Ratio; LDL Cholesterol,Calculated 54.8 mg/dL (0.0-131.0); Prealbumin 17.5 mg/dL (18.0-42.0)
[2022-05-05 18:47] LABS: % Iron Saturation 20.99 (12.00-45.00); ALT 102 U/L (8-44); AST 26 U/L (13-35); African American GFR (CKD) 66.4 (60.0-200.0); Albumin 4.2 g/dL (3.8-4.9); Albumin/Globulin Ratio 1.68 (1.60-3.17); Alkaline Phosphatase 155 U/L (41-126); BUN/Creat Ratio 15.91 Ratio (12.00-20.00); Blood Urea Nitrogen 17.5 mg/dL (9.0-27.0); Calcium 9.3 mg/dL (8.7-10.3); Carbon Dioxide 25.1 mmol/L (20.0-27.5); Chloride 106 mmol/L (96-109); Ferritin 28.2 ng/mL (10.0-291.0); Globulin 2.5 g/dL (1.6-3.3); Glucose 82 mg/dL (70-110); Iron 86 ug/dL (50-170); Magnesium 2.1 mg/dL (1.5-2.4); Non-African American GFR(CKD) 57.3 (60.0-200.0); Phosphorus 3.4 mg/dL (2.4-5.1); Potassium 4.2 mmol/L (3.5-5.5); Sodium 143 mmol/L (135-145); Total Iron Binding Capacity 410 ug/dL (228-460); Total Protein 6.7 g/dL (6.2-8.2)
[2022-05-06 12:30] LABS: Zinc, Serum 82 ug/dL (60-130)
[2022-05-09 06:34] LABS: Vit B1(Thiamine) 106 ug/L (38-122)
[2022-05-09 06:51] LABS: Vitamin A 36 ug/dL (38-106)
== END | disposition home or self-care (01) ==
LOC: LABWHC1 13:12
PROVIDERS: ATTEND Surgery Plastic and Reconstructive Surgery
DX: T56.894A Toxic effect of other metals, undetermined, initial encounter (principal); Z71.51 Drug abuse counseling and surveillance of drug abuser; D50.8 Other iron deficiency anemias; K90.89 Other intestinal malabsorption; E55.9 Vitamin D deficiency, unspecified; K74.1 Hepatic sclerosis; N19 Unspecified kidney failure
CPT/HCPCS: 84255; 84134; 84425; 80061; 80053; 82607; 82728; 82525; 82746; 83540; 83550; 83735; 84100; 84443; 84590; 84630; 85027; 85610; 85730; 82306; 80307 ×2; 83970; 83036; 93005; 36415; G0482

== ENCOUNTER 2022-06-12 11:03 | Emergency (ER) | payer OTHER ==
[2022-06-12 11:36] VITALS: BP 111/74; PULSE 72; RESP 20; TEMP 98
[2022-06-12] MEDS ORDERED: MORPHINE SULFATE 4 MG/ML SYRINGE IM STA (11:47)
[2022-06-12] MEDS ORDERED: ORPHENADRINE 30 MG/ML 2 ML VIAL IM STA (11:47)
[2022-06-12] MEDS ORDERED: KETOROLAC 15 MG/ML 1 ML VIAL IM STA (11:47)
--- NOTE | 2022-06-12 11:51 | ED ---
General Adult HPI - General Chief complaint: Back Pain/Injury Stated complaint: Back pain Time Seen by Provider: 06/12/22 11:38 Source: patient, family, RN notes reviewed Mode of arrival: ambulatory Limitations: no limitations - History of Present Illness Initial comments: Patient is a pleasant 51-year-old female presenting to the emergency Department with low back pain. Patient does have history of 2 bulging disks and has had back problems for the last 25 years. Discomfort did worsen last night. No new weakness. No loss of control of bowel or bladder function. No loss of sensation. Discomfort is lower back, more to the right side and does relate towards the right buttock/upper leg. - Related Data Home Medications Medication Instructions Recorded Confirmed Albuterol Sulfate [Proventil Hfa] 2 puff IH DAILY PRN 03/27/14 06/08/22 Atorvastatin [Lipitor] 20 mg PO HS 03/27/14 06/08/22 Potassium Gluconate [Potassium 99 mg PO DAILY 03/27/14 06/08/22 Gluconate ER] Acetaminophen [Tylenol] 325 mg PO Q6H PRN 06/27/19 06/08/22 Baclofen [Lioresal] 20 mg PO TID PRN 06/27/19 06/08/22 Cholecalciferol [Vitamin D3 (25 1,000 unit PO HS 06/27/19 06/08/22 Mcg = 1000 Iu)] Melatonin [Melatonin ER] 10 mg PO HS PRN 06/27/19 06/08/22 Ferrous Sulfate [Iron] 650 mg PO DAILY 06/08/22 06/08/22 Metoprolol Succinate (ER) [Toprol 25 mg PO HS 06/08/22 06/08/22 XL] Omeprazole [PriLOSEC] 20 mg PO AC-BRKFST 06/08/22 06/08/22 [place]k [place] Natural Supplement 1 tab PO DAILY PRN 06/08/22 06/08/22 Previous Rx's Medication Instructions Recorded Cyclobenzaprine [Flexeril] 10 mg PO TID PRN #12 tablet 06/12/22 methylPREDNISolone Dose Pack 4 mg PO DIRECTED #21 tab 06/12/22 [Medrol Dose Pack] Allergies Allergy/AdvReac Type Severity Reaction Status Date / Time codeine Allergy couldnt Verified 06/12/22 11:36 breathe Penicillins Allergy Rash/Hives Verified 06/12/22 11:36 clindamycin HCl AdvReac Itching Verified 06/12/22 11:36 [From Cleocin] clindamycin palmitate HCl AdvReac Itching Verified 06/12/22 11:36 [From Cleocin] clindamycin phosphate AdvReac Itching Verified 06/12/22 11:36 [From Cleocin] escitalopram oxalate AdvReac SEVERE Verified 06/12/22 11:36 [From Lexapro] HEADACHE levofloxacin [From Levaquin] AdvReac Itching Verified 06/12/22 11:36 Review of Systems ROS Statement: Those systems with pertinent positive or pertinent negative responses have been documented in the HPI. ROS Other: All systems not noted in ROS Statement are negative. Constitutional: Denies: fever Eyes: Denies: eye pain ENT: Denies: ear pain Respiratory: Denies: cough Cardiovascular: Denies: chest pain Endocrine: Denies: fatigue Gastrointestinal: Denies: abdominal pain Genitourinary: Denies: dysuria Musculoskeletal: Reports: back pain Skin: Denies: rash Neurological: Denies: weakness Past Medical History Past Medical History: Asthma, Blood Disorder, Cancer, Chest Pain / Angina, COPD, Fibromyalgia, GERD/Reflux, Hyperlipidemia, Hypertension, Renal Disease, Syncope Additional Past Medical History / Comment(s): VERTIGO, anemia with blood transfusion in 2003, skin CA on face, arthritis generalized , hx syncope. GS 2 per labs. mid abdomen above umbilicus below ribs hard spot tender to touch and causes nause if pressure applied. food feels like it is getting stuck. History of Any Multi-Drug Resistant Organisms: None Reported Past Surgical History: Bariatric Surgery, Cholecystectomy, Hernia Repair, Tubal Ligation Additional Past Surgical History / Comment(s): GANGLION CYST FROM LT WRIST, CLAIRE-EN-Y 1999, arthritis on left hand bone removed by thumb, incisional hernia repair, colonoscopy, EGD Past Anesthesia/Blood Transfusion Reactions: No Reported Reaction Additional Past Anesthesia/Blood Transfusion Reaction / Comment(s): blood transfusion no issues Past Psychological History: Anxiety, Bipolar, Depression Smoking Status: Never smoker - Past Family History Father Family Medical History: Diabetes Mellitus, Hypertension Additional Family Medical History / Comment(s): cad with 6 stents Mother Family Medical History: Fibromyalgia Sister(s) Family Medical History: Asthma Daughter(s) Family Medical History: Asthma Son(s) Additional Family Medical History / Comment(s): adhd General Exam Limitations: no limitations General appearance: alert, in no apparent distress Head exam: Present: normocephalic Eye exam: Present: normal appearance Respiratory exam: Present: normal lung sounds bilaterally Cardiovascular Exam: Present: regular rate, normal rhythm Expanded Peripheral pulses: 2+: Posterior Tibialis (R), Posterior Tibialis (L) GI/Abdominal exam: Present: soft. Absent: distended, tenderness Extremities exam: Present: normal inspection Back exam: Present: tenderness (mild tenderness right paralumbar, lower) Neurological exam: Present: alert. Absent: motor sensory deficit Psychiatric exam: Present: normal affect, normal mood Skin exam: Present: normal color Course Vital Signs 06/12/22 11:32 Temperature 98.0 F Pulse Rate 72 Respiratory 20 Rate Blood Pressure 111/74 O2 Sat by Pulse 100 Oximetry Medical Decision Making - Medical Decision Making discussion had with patient regarding pain medication and treatment plan. Patient does want Toradol. Patient is advised if she does have her scoped tomorrow to notify them of medications received today. Patient will try to hold off her steroid prescription until after the procedure if it is still done tomorrow. Disposition Clinical Impression: Low back pain Disposition: HOME SELF-CARE Condition: Stable Instructions (If sedation given, give patient instructions): Acute Low Back Pain (ED) Additional Instructions: please do follow-up with your primary care physician in the next day or 2 for recheck. Prescriptions have been sent to pharmacy. Return for weakness, loss of control of bowel or bladder function, loss of sensation, worsening symptoms or other concerns. Prescriptions: Cyclobenzaprine [Flexeril] 10 mg PO TID PRN #12 tablet PRN Reason: Pain methylPREDNISolone Dose Pack [Medrol Dose Pack] 4 mg PO DIRECTED #21 tab Is patient prescribed a controlled substance at d/c from ED?: No Referrals: Nancy Romano PAC [Primary Care Provider] - 1-2 days Time of Disposition: 11:50
== END 2022-06-12 12:34 | disposition home or self-care (01) ==
LOC: EC 11:03
DX: M54.50 Low back pain, unspecified (principal); J44.9 Chronic obstructive pulmonary disease, unspecified; I10 Essential (primary) hypertension; E78.5 Hyperlipidemia, unspecified; F41.9 Anxiety disorder, unspecified; F31.9 Bipolar disorder, unspecified; Z79.899 Other long term (current) drug therapy; Z88.0 Allergy status to penicillin; Z88.1 Allergy status to other antibiotic agents; Z88.8 Allergy status to other drugs, medicaments and biological substances
CPT/HCPCS: 99283; 96372 ×3; J2270; J2360; J1885

== ENCOUNTER 2022-07-25 05:29 | Emergency (ER) | payer OTHER ==
[2022-07-25 05:39] VITALS: TEMP 98.1
[2022-07-25] MEDS ORDERED: MORPHINE SULFATE 4 MG/ML SYRINGE IV STA ×2 (05:46→06:12)
[2022-07-25] MEDS ORDERED: KETOROLAC 15 MG/ML 1 ML VIAL IVP STA (05:46)
--- NOTE | 2022-07-25 05:56 | ED ---
General Adult HPI - General Chief complaint: Urogenital Stated complaint: Kidney Stone Time Seen by Provider: 07/25/22 05:40 Source: EMS Mode of arrival: EMS Limitations: no limitations - History of Present Illness Initial comments: This patient is 51-year-old woman who states she has previous history of kidney stones, and presents today with right flank pain that she states feels very similar previous episode. States pain come on last night. She states that things became much worse this morning so she comes to have evaluation. She has noticed that she is feeling frequent urge to urinate but states that she is not able to pass much urine. Just before The onset she had noticed that there was a little bit of pinkish when she had wiped after using bathroom. The patient has not noted fever or chills. No vomiting. No change in bowel movements. Onset/Timin -: days(s) Location: abdomen Radiation: non-radiation Quality: aching Consistency: constant Improves with: none Worsens with: none Associated Symptoms: other Treatments Prior to Arrival: none - Related Data Home Medications Medication Instructions Recorded Confirmed Albuterol Sulfate [Proventil Hfa] 2 puff IH DAILY PRN 03/27/14 06/08/22 Atorvastatin [Lipitor] 20 mg PO HS 03/27/14 06/08/22 Potassium Gluconate [Potassium 99 mg PO DAILY 03/27/14 06/08/22 Gluconate ER] Acetaminophen [Tylenol] 325 mg PO Q6H PRN 06/27/19 06/08/22 Baclofen [Lioresal] 20 mg PO TID PRN 06/27/19 06/08/22 Cholecalciferol [Vitamin D3 (25 1,000 unit PO HS 06/27/19 06/08/22 Mcg = 1000 Iu)] Melatonin [Melatonin ER] 10 mg PO HS PRN 06/27/19 06/08/22 Ferrous Sulfate [Iron] 650 mg PO DAILY 06/08/22 06/08/22 Metoprolol Succinate (ER) [Toprol 25 mg PO HS 06/08/22 06/08/22 XL] Omeprazole [PriLOSEC] 20 mg PO AC-BRKFST 06/08/22 06/08/22 [facility] Natural Supplement 1 tab PO DAILY PRN 06/08/22 06/08/22 Previous Rx's Medication Instructions Recorded Cyclobenzaprine [Flexeril] 10 mg PO TID PRN #12 tablet 06/12/22 methylPREDNISolone Dose Pack 4 mg PO DIRECTED #21 tab 06/12/22 [Medrol Dose Pack] HYDROcodone/APAP 5-325MG [Conetoe 1 tab PO Q4HR PRN 3 Days #18 tab 07/25/22 5-325] Ondansetron Odt [Zofran ODT] 4 mg PO Q8HR PRN #10 tab 07/25/22 Tamsulosin [Flomax] 0.4 mg PO DAILY #14 cap 07/25/22 Allergies Allergy/AdvReac Type Severity Reaction Status Date / Time codeine Allergy couldnt Verified 06/12/22 11:36 breathe Penicillins Allergy Rash/Hives Verified 06/12/22 11:36 clindamycin HCl AdvReac Itching Verified 06/12/22 11:36 [From Cleocin] clindamycin palmitate HCl AdvReac Itching Verified 06/12/22 11:36 [From Cleocin] clindamycin phosphate AdvReac Itching Verified 06/12/22 11:36 [From Cleocin] escitalopram oxalate AdvReac SEVERE Verified 06/12/22 11:36 [From Lexapro] HEADACHE levofloxacin [From Levaquin] AdvReac Itching Verified 06/12/22 11:36 Review of Systems ROS Statement: Those systems with pertinent positive or pertinent negative responses have been documented in the HPI. ROS Other: All systems not noted in ROS Statement are negative. Constitutional: Denies: fever, chills Respiratory: Denies: cough, dyspnea Cardiovascular: Denies: chest pain, palpitations Gastrointestinal: Reports: abdominal pain. Denies: nausea, vomiting, diarrhea, constipation, melena, hematochezia Genitourinary: Reports: urgency, frequency, hematuria. Denies: dysuria Musculoskeletal: Denies: back pain Skin: Denies: rash Neurological: Denies: headache, weakness, numbness Past Medical History Past Medical History: Asthma, Blood Disorder, Cancer, Chest Pain / Angina, COPD, Fibromyalgia, GERD/Reflux, Hyperlipidemia, Hypertension, Renal Disease, Syncope Additional Past Medical History / Comment(s): VERTIGO, anemia with blood transfusion in 2003, skin CA on face, arthritis generalized , hx syncope. GS 2 per labs. mid abdomen above umbilicus below ribs hard spot tender to touch and causes nause if pressure applied. food feels like it is getting stuck. History of Any Multi-Drug Resistant Organisms: None Reported Past Surgical History: Bariatric Surgery, Cholecystectomy, Hernia Repair, Tubal Ligation Additional Past Surgical History / Comment(s): GANGLION CYST FROM LT WRIST, CLAIRE-EN-Y 1999, arthritis on left hand bone removed by thumb, incisional hernia repair, colonoscopy, EGD Past Anesthesia/Blood Transfusion Reactions: No Reported Reaction Additional Past Anesthesia/Blood Transfusion Reaction / Comment(s): blood transfusion no issues Past Psychological History: Anxiety, Bipolar, Depression Smoking Status: Never smoker - Past Family History Father Family Medical History: Diabetes Mellitus, Hypertension Additional Family Medical History / Comment(s): cad with 6 stents Mother Family Medical History: Fibromyalgia Sister(s) Family Medical History: Asthma Daughter(s) Family Medical History: Asthma Son(s) Additional Family Medical History / Comment(s): adhd General Exam Limitations: no limitations General appearance: alert, in no apparent distress Head exam: Present: atraumatic, normocephalic Eye exam: Present: normal appearance Neck exam: Present: normal inspection Respiratory exam: Present: normal lung sounds bilaterally. Absent: respiratory distress, wheezes, rales, rhonchi, stridor Cardiovascular Exam: Present: regular rate, normal rhythm, normal heart sounds. Absent: systolic murmur, diastolic murmur, rubs, gallop GI/Abdominal exam: Present: soft. Absent: distended, tenderness, guarding, rebound, rigid, mass Extremities exam: Present: normal inspection, normal capillary refill. Absent: pedal edema, calf tenderness Back exam: Present: normal inspection. Absent: CVA tenderness (R), CVA tenderness (L) Neurological exam: Present: alert Skin exam: Present: warm, dry, intact, normal color. Absent: rash Course Vital Signs 07/25/22 07/25/22 07/25/22 05:34 06:20 07:46 Temperature 98.1 F Pulse Rate 98 79 59 L Respiratory 16 18 16 Rate Blood Pressure 130/80 114/58 114/89 O2 Sat by Pulse 98 95 99 Oximetry 07/25/22 07:47 Temperature Pulse Rate 59 L Respiratory 16 Rate Blood Pressure 114/89 O2 Sat by Pulse 99 Oximetry Medical Decision Making - Medical Decision Making This patient is 51-year-old woman presenting to have evaluation of right flank pain. History and physical strongly suggestive of stone. She is sent for computed tomography scan which I interpreted as showing ureteral stone with hydroureter. The patient is feeling better here and would like to go home. We discussed appropriate further care and follow-up as well as return parameters. @ -[No Did you review nursing and triage notes? @ -[agree Were old charts reviewed? @ -[yes Differential Diagnosis? @ -Differential Abdominal Pain Women: Appendicitis, Cholecystitis, diverticulosis, ischemic bowel, pancreatitis, hepatitis, UTI, gastroenteritis, AAA, incarcerated hernia, bowel obstruction, constipation, inflammatory bowel, hepatitis, peptic ulcer disease, splenic infarction, perforated viscus, vulvitis, ovarian torsion, PID, kidney stone, placenta abruption, this is not meant to be an all-inclusive list EKG interpreted by me (3pts min.)? @ -[None X-rays interpreted by me (1pt min.)? @ -None CT interpreted by me (1pt min.)? @ -See chart U/S interpreted by me (1pt. min.)? @ -[none] What testing was considered but not performed? (CT, X-rays, U/S, labs)? Why? @ [ What meds were considered but not given? Why? @ -[none] Did you discuss the management of the patient with other professionals? @ -[No Did you reconcile home meds? @ -[No Was smoking cessation discussed for >3mins.? @ -[none] Was critical care preformed (if so, how long)? @ -[none] Were there social determinants of health that impacted care today? How? (Homelessness, low income, unemployed, alcoholism, drug addiction, transportation, low edu. Level, literacy, decrease access to med. care, mcc, rehab)? @ -[No Was there de-escalation of care discussed even if they declined? (Discuss DNR or withdrawal of care, Hospice)? @ -[No What co-morbidities impacted this encounter? (DM, HTN, Smoking, COPD, CAD, Cancer, CVA, Hep., AIDS, mental health diagnosis, sleep apnea, morbid obesity)? @ -[None Was patient admitted / discharged? @ -[Discharged Undiagnosed new problem with uncertain prognosis? @ -[none] Drug Therapy requiring intensive monitoring for toxicity (Heparin, Nitro, Insulin, Cardizem)? @ -[none] Were any procedures done? @ -[none] Diagnosis/symptom? @ -[Acute kidney stone Acute, or Chronic, or Acute on Chronic? @ -[Acute Uncomplicated (without systemic symptoms) or Complicated (systemic symptoms)? @ -[Uncomplicated Side effects of treatment? @ -[none] Exacerbation, Progression, or Severe Exacerbation] @ -[no] Poses a threat to life or bodily function? @ -[No - Lab Data Result diagrams: 07/25/22 05:58 07/25/22 05:58 Lab Results 07/25/22 07/25/22 07/25/22 Range/Units 05:58 05:58 06:48 WBC 10.4 (3.8-10.6) k/uL RBC 4.60 (3.80-5.40) m/uL Hgb 13.7 (11.4-16.0) gm/dL Hct 42.1 (34.0-46.0) % MCV 91.5 (80.0-100.0) fL MCH 29.7 (25.0-35.0) pg MCHC 32.5 (31.0-37.0) g/dL RDW 13.8 (11.5-15.5) % Plt Count 321 (150-450) k/uL MPV 7.7 Neutrophils % 70 % Lymphocytes % 17 % Monocytes % 6 % Eosinophils % 4 % Basophils % 1 % Neutrophils # 7.3 (1.3-7.7) k/uL Lymphocytes # 1.8 (1.0-4.8) k/uL Monocytes # 0.6 (0-1.0) k/uL Eosinophils # 0.4 (0-0.7) k/uL Basophils # 0.1 (0-0.2) k/uL Sodium 141 (137-145) mmol/L Potassium 4.2 (3.5-5.1) mmol/L Chloride 115 H (98-107) mmol/L Carbon Dioxide 18 L (22-30) mmol/L Anion Gap 8 mmol/L BUN 19 H (7-17) mg/dL Creatinine 1.23 H (0.52-1.04) mg/dL Est GFR (CKD-EPI)AfAm 58 (>60 ml/min/1.73 sqM) Est GFR (CKD-EPI)NonAf 50 (>60 ml/min/1.73 sqM) Glucose 117 H (74-99) mg/dL Calcium 8.8 (8.4-10.2) mg/dL Total Bilirubin 0.3 (0.2-1.3) mg/dL AST 22 (14-36) U/L ALT 17 (4-34) U/L Alkaline Phosphatase 89 (38-126) U/L Total Protein 6.8 (6.3-8.2) g/dL Albumin 3.8 (3.5-5.0) g/dL Amylase 43 (30-110) U/L Lipase 20 L (23-300) U/L Urine Color Yellow Urine Appearance Cloudy H (Clear) Urine pH 5.5 (5.0-8.0) Ur Specific [place] 1.038 H (1.001-1.035) Urine Protein 1+ H (Negative) Urine Glucose (UA) Negative (Negative) Urine Ketones Trace H (Negative) Urine Blood Large H (Negative) Urine Nitrite Negative (Negative) Urine Bilirubin 1+ H (Negative) Urine Urobilinogen 4.0 (<2.0) mg/dL Ur Leukocyte Esterase Negative (Negative) Urine RBC >182 H (0-5) /hpf Urine WBC 9 H (0-5) /hpf Ur Squamous Epith Cells 17 H (0-4) /hpf Hyaline Casts 3 H (0-2) /lpf Urine Mucus Moderate H (None) /hpf Disposition Clinical Impression: Kidney stone on right side Disposition: HOME SELF-CARE Condition: Good Instructions (If sedation given, give patient instructions): Kidney Stones (ED) Prescriptions: Tamsulosin [Flomax] 0.4 mg PO DAILY #14 cap HYDROcodone/APAP 5-325MG [Conetoe 5-325] 1 tab PO Q4HR PRN 3 Days #18 tab PRN Reason: Pain Ondansetron Odt [Zofran ODT] 4 mg PO Q8HR PRN #10 tab PRN Reason: Nausea Is patient prescribed a controlled substance at d/c from ED?: No Referrals: Nancy Romano PAC [Primary Care Provider] - 1-2 days Matthias Acevedo MD [STAFF PHYSICIAN] - 1-2 days
[2022-07-25 06:11] LABS: Basophils # (A) 0.1 k/uL (0-0.2); Basophils % (A) 1 %; Eosinophils # (A) 0.4 k/uL (0-0.7); Eosinophils % (A) 4 %; HCT 42.1 % (34.0-46.0); HGB 13.7 gm/dL (11.4-16.0); Lymphocytes # (A) 1.8 k/uL (1.0-4.8); Lymphocytes % (A) 17 %; MCH 29.7 pg (25.0-35.0); MCHC 32.5 g/dL (31.0-37.0); MCV 91.5 fL (80.0-100.0); Mean Platelet Volume 7.7; Monocytes # (A) 0.6 k/uL (0-1.0); Monocytes % (A) 6 %; Neutrophils # (A) 7.3 k/uL (1.3-7.7); Neutrophils % (A) 70 %; Platelet Count 321 k/uL (150-450); RDW 13.8 % (11.5-15.5); WBC 10.4 k/uL (3.8-10.6)
--- NOTE | 2022-07-25 06:44 | CT ---
EXAMINATION TYPE: CT abdomen pelvis wo con DATE OF EXAM: 07/25/2022 HISTORY: kidney stone, right-sided flank pain. CT DLP: 1174 mGycm. Automated Exposure Control for Dose Reduction was Utilized. TECHNIQUE: CT scan of the abdomen and pelvis is performed without oral or IV contrast. COMPARISON: NONE FINDINGS: Within the limitations of a non-contrast study, the following observations are made. LUNG BASES: No significant abnormality is appreciated. LIVER/GB: Cholecystectomy clips are present. PANCREAS: Moderate to severe fat replaced atrophy. SPLEEN: No significant abnormality is seen. ADRENALS: No significant abnormality is seen. KIDNEYS: Left kidney shows 2 calculi measuring up to 4 mm in size. No left-sided hydronephrosis. Righ t kidney shows single 5 mm calculus upper to midpole level coronal image 64 with moderate right-sided hydronephrosis due to obstructing 4 mm calculus at UVJ on coronal image 54. No intraluminal calculi in the poorly distended bladder. BOWEL: Surgical changes epigastric region from gastric sleeve procedure suspected. No suspicious smal l or large bowel dilatation. Appendix within normal limits from base of cecum. GENITAL ORGANS: Slightly retroflexed uterus. Oval 1.7 cm hypodense lesion in the lower right uterine segment favor small fibroid axial image 79. Central hypodense structure suspected endometrial stripe prominent for postmenopausal female. Nonemergent follow-up advised. LYMPH NODES: No greater than 1cm abdominal or pelvic lymph nodes are appreciated. OSSEOUS STRUCTURES: Moderate axial joint space loss and spurring of both hips. OTHER: Scar tissue in the anterior abdominal wall is present. Evidence of prior ventral wall hernia r epair surgery noted. IMPRESSION: Bilateral nephrolithiasis with 4 mm obstructing calculus at right UVJ causing moderate ri ght-sided hydronephrosis.
[2022-07-25 06:50] LABS: Albumin 3.8 g/dL (3.5-5.0); Calcium 8.8 mg/dL (8.4-10.2); Potassium 4.2 mmol/L (3.5-5.1); Total Bilirubin 0.3 mg/dL (0.2-1.3); Total Protein 6.8 g/dL (6.3-8.2)
[2022-07-25] MEDS ORDERED: TAMSULOSIN 0.4 MG CAP.ER.24H PO STA (07:04)
[2022-07-25 07:47] VITALS: BP 114/89; PULSE 59; RESP 16
[2022-07-25 08:01] LABS: Appearance,Urine Cloudy (Clear); Bilirubin,Urine 1+ (Negative); Blood,Urine Large (Negative); Color,Urine Yellow; Glucose,Urine (UA) Negative (Negative); Hyaline Casts,Urine 3 /lpf (0-2); Ketones,Urine Trace (Negative); Leukocyte Esterase,Urine Negative (Negative); Mucus,Urine Moderate /hpf; Nitrite,Urine Negative (Negative); PH, Urine 5.5 (5.0-8.0); Protein,Urine 1+ (Negative); RBC,Urine >182 /hpf (0-5); Specific Gravity,Urine 1.038 (1.001-1.035); Squamous Epithelial Cell,Urine 17 /hpf (0-4); WBC,Urine 9 /hpf (0-5)
== END 2022-07-25 08:00 | disposition home or self-care (01) ==
LOC: EC 05:29
DX: N20.0 Calculus of kidney (principal); J44.9 Chronic obstructive pulmonary disease, unspecified; K21.9 Gastro-esophageal reflux disease without esophagitis; E78.5 Hyperlipidemia, unspecified; I10 Essential (primary) hypertension; F31.9 Bipolar disorder, unspecified; F41.9 Anxiety disorder, unspecified; Z88.5 Allergy status to narcotic agent; Z88.0 Allergy status to penicillin; Z88.1 Allergy status to other antibiotic agents; Z88.8 Allergy status to other drugs, medicaments and biological substances; Z79.899 Other long term (current) drug therapy
CPT/HCPCS: 36415; 80053; 82150; 83690; 85025; 81001; 74176; 99284; 96374; 96375; 96376; J2270; J1885

== ENCOUNTER 2022-09-19 09:35 | Day surgery (SDC) | payer OTHER ==
[2022-09-14 09:49] VITALS: BMI 38.6
[~2022-09-19 09:35] MED LIST: Pre Op ABX Message 1 EACH MISC MISCELLANE ONE
[2022-09-19] MEDS ORDERED: LACTATED RINGERS 1,000 ML IV SCH (09:52)
[2022-09-19] MEDS ORDERED: METOCLOPRAMIDE 5 MG/ML 2 ML VIAL IVP PRN (09:52)
[2022-09-19] MEDS ORDERED: ONDANSETRON 4 MG/2 ML VIAL IVP ONE (09:52)
[2022-09-19] MEDS ORDERED: LIDOCAINE 1% (10MG/ML) FOR IV START INTRADERMA PRN (09:52)
[2022-09-19] MEDS ORDERED: DEXAMETHASONE SOD PHOSPHATE 4 MG/ML 1 ML VIAL IV ONE (09:52)
--- NOTE | 2022-09-19 10:40 | P.HPOB ---
History of Present Illness H&P Date: 09/19/22 Chief Complaint: Postmenopausal bleeding This is a 52-year-old female with known last menstrual period in July 2019. Patient noted complaints of increased vaginal bleeding. Patient stated the bleeding began about 5 days prior to her visit. The bleeding has been heavy w ith some clots but she doesn't with the blood to be brown red in the dark brown. Patient denies other concerns. Endometrial biopsy was attempted in the office, insufficient for diagnosis. Review of Systems Constitutional: Denies chills, Denies fatigue, Denies fever Cardiovascular: Denies leg edema Respiratory: Denies dyspnea Gastrointestinal: Denies nausea, Denies vomiting Genitourinary: Denies Menstruation: Reports as per HPI, Reports postmenopausal Past Medical History Past Medical History: Asthma, Blood Disorder, Cancer, Chest Pain / Angina, COPD, Fibromyalgia, GERD/Reflux, Hyperlipidemia, Hypertension, Osteoarthritis (OA), Renal Disease, Syncope Additional Past Medical History / Comment(s): VERTIGO, anemia with blood transfusion in 2003, skin CA on face, arthritis generalized , hx syncope ,GS 2 per labs. , HX PMB History of Any Multi-Drug Resistant Organisms: None Reported Past Surgical History: Bariatric Surgery, Cholecystectomy, Hernia Repair, Orthopedic Surgery, Tubal Ligation Additional Past Surgical History / Comment(s): GANGLION CYST FROM LT WRIST, CLAIRE-EN-Y 1999, arthritis on left hand bone removed by thumb, incisional hernia repair, colonoscopy, EGD Past Anesthesia/Blood Transfusion Reactions: No Reported Reaction Additional Past Anesthesia/Blood Transfusion Reaction / Comment(s): blood transfusion no issues Smoking Status: Never smoker - Past Family History Father Family Medical History: Diabetes Mellitus, Hypertension Additional Family Medical History / Comment(s): cad with 6 stents Mother Family Medical History: Fibromyalgia Sister(s) Family Medical History: Asthma Daughter(s) Family Medical History: Asthma Son(s) Additional Family Medical History / Comment(s): adhd Medications and Allergies Home Medications Medication Instructions Recorded Confirmed Type Atorvastatin [Lipitor] 20 mg PO HS 03/27/14 09/19/22 History Baclofen [Lioresal] 20 mg PO TID PRN 06/27/19 09/19/22 History Metoprolol Succinate (ER) [Toprol 25 mg PO HS 06/08/22 09/19/22 History XL] ARIPiprazole [Abilify] 10 mg PO HS 08/17/22 09/19/22 History Albuterol Inhaler [Ventolin Hfa 2 puff INHALATION RT-Q4H PRN 08/17/22 09/19/22 History Inhaler] Cholecalciferol [Vitamin D3 (25 25 mcg PO HS 08/17/22 09/19/22 History Mcg = 1000 Iu)] Ferrous Sulfate [Feosol] 325 mg PO HS 08/17/22 09/19/22 History Fluticasone Propion/Salmeterol 1 puff INHALATION RT-BID 08/17/22 09/19/22 History [Advair 250-50 Diskus] HYDROcodone/APAP 5-325MG [[place] 5] 1 each PO Q6HR PRN #12 tab 08/17/22 09/19/22 Rx Omeprazole 20 mg PO HS 08/17/22 09/19/22 History Acetaminophen Tab [Tylenol] 650 mg PRN 09/19/22 History Allergies Allergy/AdvReac Type Severity Reaction Status Date / Time codeine Allergy couldnt Verified 09/19/22 09:55 breathe Penicillins Allergy Rash/Hives Verified 09/19/22 09:55 clindamycin HCl AdvReac Itching Verified 09/19/22 09:55 [From Cleocin] clindamycin palmitate HCl AdvReac Itching Verified 09/19/22 09:55 [From Cleocin] clindamycin phosphate AdvReac Itching Verified 09/19/22 09:55 [From Cleocin] escitalopram oxalate AdvReac SEVERE Verified 09/19/22 09:55 [From Lexapro] HEADACHE levofloxacin [From Levaquin] AdvReac Itching Verified 09/19/22 09:55 Exam Osteopathic Statement: *. No significant issues noted on an osteopathic structural exam other than those noted in the History and Physical/Consult. 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 The uterus is bulky with no masses appreciated. No adnexal tenderness is appreciated. No masses are noted. Assessment and Plan (1) PMB (postmenopausal bleeding) Current Visit: Yes Status: Acute Code(s): N95.0 - POSTMENOPAUSAL BLEEDING SNOMED Code(s): 84545680 Plan: Patient is counseled on need for hysteroscopy and D D&C for definitive diagnosis given postmenopausal bleeding. Patient states understanding and wishes to proceed. Risks of D&C are discussed and all questions are answered. A copy was given to patient in addition to review. We'll proceed with hysteroscopy, dilation and curettage.
[2022-09-19] MEDS ORDERED: fentaNYL (PF) 50 MCG/ML 2 ML AMP ONE (11:32)
[2022-09-19] MEDS ORDERED: SUCCINYLCHOLINE CHLORIDE 200 MG/10 ML VIAL IV ONE (11:32)
[2022-09-19] MEDS ORDERED: PROPOFOL 10 MG/ML 20 ML VIAL IV ONE (11:32)
[2022-09-19] MEDS ORDERED: LIDOCAINE 2% INJ 20 MG/ML (2 ML VIAL) ONE (11:32)
[2022-09-19 11:52] LABS: Glucose,Whole Blood 85 mg/dL (70-110)
--- NOTE | 2022-09-19 12:13 | P.OP ---
Date of Procedure: 09/19/22 Preoperative Diagnosis: Postmenopausal bleeding Postoperative Diagnosis: Same Procedure(s) Performed: Hysteroscopy, dilation and curettage Anesthesia: PIETRO Surgeon: Thea Tejada Estimated Blood Loss (ml): 5 IV fluids (ml): 200 Urine output (ml): 100 Pathology: other (Endometrial curettings) Condition: stable Disposition: PACU Indications for Procedure: Post menopausal bleeding Operative Findings: Thickened endometrium Description of Procedure: Patient was taken back to the operating suite where general anesthesia was obtained without difficulty by the anesthesia department. She was prepped and draped in the normal sterile fashion in the dorsal lithotomy position. I [place] catheter was used to drain the bladder clear yellow urine. A weighted speculum was the posterior vaginal vault intralipids the cervix is visualized and grasped with a single-tooth tenaculum. The endocervical canal was then serially dilated. Hysteroscope was placed through the cervix with the above- noted findings. Hysteroscope was removed, sharp curettage was then performed. A large amount of tissue was obtained. This was sent to pathology for analysis. The single tooth tenaculum was taken off of the anterior lip of the cervix, hemostasis was appreciated. All counts were noted be correct 2 at the end of the procedure. Patient tolerated procedure well and was taken the recovery room awake in stable condition.
[2022-09-19 12:22] VITALS: TEMP 97.1
[2022-09-19] MEDS: HYDROmorphone 0.5 MG/0.5 ML SYRINGE IVP PRN ×2 (12:23→12:49)
[2022-09-19] MEDS ORDERED: KETOROLAC 15 MG/ML 1 ML VIAL IVP ONE (12:23)
[2022-09-19 12:32] VITALS: RESP 16
[2022-09-19 13:18] VITALS: BP 143/85; PULSE 56
== END 2022-09-19 13:57 | disposition home or self-care (01) ==
LOC: OR 09:35
PROVIDERS: ATTEND Obstetrics & Gynecology Obstetrics
DX: N84.0 Polyp of corpus uteri (principal); N95.0 Postmenopausal bleeding; J44.9 Chronic obstructive pulmonary disease, unspecified; M79.7 Fibromyalgia; K21.9 Gastro-esophageal reflux disease without esophagitis; R73.9 Hyperglycemia, unspecified; E78.5 Hyperlipidemia, unspecified; I10 Essential (primary) hypertension; M19.90 Unspecified osteoarthritis, unspecified site; Z88.0 Allergy status to penicillin; Z88.5 Allergy status to narcotic agent; Z88.6 Allergy status to analgesic agent; Z88.1 Allergy status to other antibiotic agents; Z79.51 Long term (current) use of inhaled steroids; Z79.899 Other long term (current) drug therapy; Z79.891 Long term (current) use of opiate analgesic
CPT/HCPCS: 58558; 88305; J0330; J1100; J2405; J3010; J1885; J2704; J1170; J2001

== ENCOUNTER 2022-10-04 22:24 | Emergency (ER) | payer OTHER ==
[2022-10-04 22:35] VITALS: BP 147/95; PULSE 58; RESP 20; TEMP 97.9
[2022-10-05 00:46] LABS: Appearance,Urine Cloudy (Clear); Bacteria,Urine Rare /hpf; Bilirubin,Urine Negative (Negative); Blood,Urine Moderate (Negative); Color,Urine Yellow; Glucose,Urine (UA) Negative (Negative); Ketones,Urine Negative (Negative); Leukocyte Esterase,Urine Small (Negative); Mucus,Urine Occasional /hpf; Nitrite,Urine Negative (Negative); PH, Urine 5.5 (5.0-8.0); Protein,Urine 1+ (Negative); RBC,Urine 182 /hpf (0-5); Specific Gravity,Urine 1.032 (1.001-1.035); Squamous Epithelial Cell,Urine 1 /hpf (0-4); WBC,Urine 14 /hpf (0-5)
[2022-10-05] MEDS ORDERED: SODIUM CHLORIDE 0.9% 1,000 ML IV ONE (01:06)
[2022-10-05] MEDS ORDERED: KETOROLAC 15 MG/ML 1 ML VIAL IVP STA (01:06)
[2022-10-05 01:27] LABS: Basophils # (A) 0.1 k/uL (0-0.2); Basophils % (A) 1 %; Eosinophils # (A) 0.2 k/uL (0-0.7); Eosinophils % (A) 3 %; HCT 43.4 % (34.0-46.0); HGB 14.3 gm/dL (11.4-16.0); Lymphocytes # (A) 1.9 k/uL (1.0-4.8); Lymphocytes % (A) 28 %; MCH 30.3 pg (25.0-35.0); Mean Platelet Volume 8.1; Monocytes # (A) 0.6 k/uL (0-1.0); Monocytes % (A) 8 %; Neutrophils % (A) 57 %; Platelet Count 369 k/uL (150-450); RBC 4.72 m/uL (3.80-5.40); RDW 13.8 % (11.5-15.5); WBC 6.9 k/uL (3.8-10.6)
--- NOTE | 2022-10-05 02:14 | ED ---
General Adult HPI - General Chief complaint: Abdominal Pain Stated complaint: ABD Pain,Back Pain Time Seen by Provider: 10/04/22 23:45 Source: patient Mode of arrival: ambulatory Limitations: no limitations - History of Present Illness Initial comments: This is a 52-year-old female with a past medical history including hypertension and hyperlipidemia as well as previous kidney stones presents emergency department for left-sided flank pain. The patient stated that this pain started earlier in the afternoon and has been consistent. The patient had increased urinary frequency as well as radiation of the left flank pain to the groin. The patient stated that it feels like her previous kidney stones. The patient reported decreased appetite but denied any nausea and vomiting. The patient was resting in bed in mild distress secondary to this pain. The patient denied any other acute pain or distress at this time. - Related Data Home Medications Medication Instructions Recorded Confirmed Atorvastatin [Lipitor] 20 mg PO HS 03/27/14 09/19/22 Baclofen [Lioresal] 20 mg PO TID PRN 06/27/19 09/19/22 Metoprolol Succinate (ER) [Toprol 25 mg PO HS 06/08/22 09/19/22 XL] ARIPiprazole [Abilify] 10 mg PO HS 08/17/22 09/19/22 Albuterol Inhaler [Ventolin Hfa 2 puff INHALATION RT-Q4H PRN 08/17/22 09/19/22 Inhaler] Cholecalciferol [Vitamin D3 (25 25 mcg PO HS 08/17/22 09/19/22 Mcg = 1000 Iu)] Ferrous Sulfate [Feosol] 325 mg PO HS 08/17/22 09/19/22 Fluticasone Propion/Salmeterol 1 puff INHALATION RT-BID 08/17/22 09/19/22 [Advair 250-50 Diskus] Omeprazole 20 mg PO HS 08/17/22 09/19/22 Acetaminophen Tab [Tylenol] 650 mg PRN 09/19/22 Previous Rx's Medication Instructions Recorded HYDROcodone/APAP 5-325MG [[place] 5] 1 each PO Q6HR PRN #12 tab 08/17/22 Ketorolac [Toradol] 10 mg PO Q6HR #30 tab 10/05/22 Ondansetron Odt [Zofran Odt] 4 mg PO Q8HR PRN #20 tab 10/05/22 Allergies Allergy/AdvReac Type Severity Reaction Status Date / Time codeine Allergy couldnt Verified 10/04/22 22:35 breathe Penicillins Allergy Rash/Hives Verified 10/04/22 22:35 clindamycin HCl AdvReac Itching Verified 10/04/22 22:35 [From Cleocin] clindamycin palmitate HCl AdvReac Itching Verified 10/04/22 22:35 [From Cleocin] clindamycin phosphate AdvReac Itching Verified 10/04/22 22:35 [From Cleocin] escitalopram oxalate AdvReac SEVERE Verified 10/04/22 22:35 [From Lexapro] HEADACHE levofloxacin [From Levaquin] AdvReac Itching Verified 10/04/22 22:35 Review of Systems ROS Statement: Those systems with pertinent positive or pertinent negative responses have been documented in the HPI. ROS Other: All systems not noted in ROS Statement are negative. Past Medical History Past Medical History: Asthma, Blood Disorder, Cancer, Chest Pain / Angina, COPD, Fibromyalgia, GERD/Reflux, Hyperlipidemia, Hypertension, Osteoarthritis (OA), Renal Disease, Syncope Additional Past Medical History / Comment(s): VERTIGO, anemia with blood transfusion in 2003, skin CA on face, arthritis generalized , hx syncope ,GS 2 per labs. , HX PMB, Kidney stones History of Any Multi-Drug Resistant Organisms: None Reported Past Surgical History: Bariatric Surgery, Cholecystectomy, Hernia Repair, Orthopedic Surgery, Tubal Ligation Additional Past Surgical History / Comment(s): GANGLION CYST FROM LT WRIST, CLAIRE-EN-Y 1999, arthritis on left hand bone removed by thumb, incisional hernia repair, colonoscopy, EGD, D&C Past Anesthesia/Blood Transfusion Reactions: No Reported Reaction Additional Past Anesthesia/Blood Transfusion Reaction / Comment(s): blood transfusion no issues Past Psychological History: Anxiety, Bipolar, Depression Smoking Status: Never smoker Past Alcohol Use History: None Reported Past Drug Use History: None Reported - Past Family History Father Family Medical History: Diabetes Mellitus, Hypertension Additional Family Medical History / Comment(s): cad with 6 stents Mother Family Medical History: Fibromyalgia Sister(s) Family Medical History: Asthma Daughter(s) Family Medical History: Asthma Son(s) Additional Family Medical History / Comment(s): adhd General Exam Limitations: no limitations General appearance: alert, in no apparent distress Head exam: Present: atraumatic, normocephalic, normal inspection Eye exam: Present: normal appearance, PERRL Pupils: Present: normal accommodation ENT exam: Present: normal exam, normal oropharynx, mucous membranes moist Neck exam: Present: normal inspection, full ROM Respiratory exam: Present: normal lung sounds bilaterally Cardiovascular Exam: Present: regular rate, normal rhythm, normal heart sounds GI/Abdominal exam: Present: soft, tenderness (Mild tenderness to palpation to the left middle quadrant) Extremities exam: Present: normal inspection, full ROM Back exam: Present: normal inspection, full ROM, CVA tenderness (L) Neurological exam: Present: alert, oriented X3, CN II-XII intact Psychiatric exam: Present: normal affect, normal mood Skin exam: Present: warm, dry Course Vital Signs 10/04/22 22:31 Temperature 97.9 F Pulse Rate 58 L Respiratory 20 Rate Blood Pressure 147/95 O2 Sat by Pulse 99 Oximetry Medical Decision Making - Medical Decision Making Was pt. sent in by a medical professional or institution (AISHA Morales, DIRECTOR OF EMPLOYEE DEVELOPMENT, urgent care, hospital, or fdc...) When possible be specific @ -No Did you speak to anyone other than the patient for history (EMS, parent, family, police, friend...)? What history was obtained from this source @ -No Did you review nursing and triage notes (agree or disagree)? Why? @ -I reviewed and agree with nursing and triage notes Were old charts reviewed (outside hosp., previous admission, EMS record, old EKG, old radiological studies, urgent care reports/EKG's, fdc records)? Report findings @ -No old charts were reviewed Differential Diagnosis (chest pain, altered mental status, abdominal pain women, abdominal pain men, vaginal bleeding, weakness, fever, dyspnea, syncope, headache, dizziness, GI bleed, back pain, seizure, CVA, palpatations, mental health)? @ -Kidney stone, pyelonephritis, musculoskeletal flank pain EKG interpreted by me (3pts min.). @ -None X-rays interpreted by me (1pt min.). @ -None done CT interpreted by me (1pt min.). @ -CT abdomen and pelvis without contrast was obtained and was interpreted by myself showing no hydrocephalus or obstructing ureteral stones. There was a nonobstructing 4 mm left kidney stone. U/S interpreted by me (1pt. min.). @ -None done What testing was considered but not performed or refused? (CT, X-rays, U/S, labs)? Why? @ -None What meds were considered but not given or refused? Why? @ -None Did you discuss the management of the patient with other professionals (professionals i.e. Dr., PA, DIRECTOR OF EMPLOYEE DEVELOPMENT, lab, RT, psych nurse, 7th grade social studies teacher, refinery operator helper cracking unit, teacher, [place] customs and border officer, caseworker)? Give summary @ -No Was smoking cessation discussed for >3mins.? @ -No Was critical care preformed (if so, how long)? @ -No Were there social determinants of health that impacted care today? How? (Home lessness, low income, unemployed, alcoholism, drug addiction, transportation, low edu. Level, literacy, decrease access to med. care, [place] [facility], rehab)? @ -No Was there de-escalation of care discussed even if they declined (Discuss DNR or withdrawal of care, Hospice)? DNR status @ -No What co-morbidities impacted this encounter? (DM, HTN, Smoking, COPD, CAD, Cancer, CVA, ARF, Chemo, Hep., AIDS, mental health diagnosis, sleep apnea, morbid obesity)? @ -Hypertension, hyperlipidemia and previous kidney stones Was patient admitted / discharged? Hospital course, mention meds given and rout e, prescriptions, significant lab abnormalities, going to OR and other pertinent info. @ -The patient was seen and evaluated emergency department. Physical exam, the patient was in minimal distress secondary to left flank pain. Vital signs admission were stable. Laboratory workup initially showed blood in the urine indicating a likely kidney stone. The rest of the laboratory workup had a CBC performed however the remaining laboratory workup was not performed as the patient wanted to leave before this was done. Computed tomography scan was negative for a obstructing kidney stone and likely could've been a recently passed kidney stone. The patient had been given Toradol and stated that this did improve her pain. While waiting for the labs to finish, the patient became impatient and wanted to be discharged home. The patient was given a prescription for Toradol as well as Zofran and was told to continue to monitor symptoms. The patient was advised report back to the emergency department she had worsening pain. The patient was agreeable to this and all her questions were answered. The patient was discharged home in stable condition. Undiagnosed new problem with uncertain prognosis? @ -No Drug Therapy requiring intensive monitoring for toxicity (Heparin, Nitro, Insulin, Cardizem)? @ -No Were any procedures done? @ -No Diagnosis/symptom? @ -Left flank pain likely secondary to possible recently passed kidney stone Acute, or Chronic, or Acute on Chronic? @ -Acute Uncomplicated (without systemic symptoms) or Complicated (systemic symptoms)? @ -Uncomplicated Side effects of treatment? @ -No Exacerbation, Progression, or Severe Exacerbation? @ -No Poses a threat to life or bodily function? How? (Chest pain, [place], AR, pneumonia, PE, COPD, DKA, ARF, appy, cholecystitis, CVA, Diverticulitis, Homicidal, Suicidal, threat to staff... and all critical care pts) @ -No - Lab Data Result diagrams: 10/05/22 01:16 Lab Results 10/05/22 10/05/22 Range/Units 00:29 01:16 WBC 6.9 (3.8-10.6) k/uL RBC 4.72 (3.80-5.40) m/uL Hgb 14.3 (11.4-16.0) gm/dL Hct 43.4 (34.0-46.0) % MCV 92.0 (80.0-100.0) fL MCH 30.3 (25.0-35.0) pg MCHC 33.0 (31.0-37.0) g/dL RDW 13.8 (11.5-15.5) % Plt Count 369 (150-450) k/uL MPV 8.1 Neutrophils % 57 % Lymphocytes % 28 % Monocytes % 8 % Eosinophils % 3 % Basophils % 1 % Neutrophils # 4.0 (1.3-7.7) k/uL Lymphocytes # 1.9 (1.0-4.8) k/uL Monocytes # 0.6 (0-1.0) k/uL Eosinophils # 0.2 (0-0.7) k/uL Basophils # 0.1 (0-0.2) k/uL Urine Color Yellow Urine Appearance Cloudy H (Clear) Urine pH 5.5 (5.0-8.0) Ur Specific [place] 1.032 (1.001-1.035) Urine Protein 1+ H (Negative) Urine Glucose (UA) Negative (Negative) Urine Ketones Negative (Negative) Urine Blood Moderate H (Negative) Urine Nitrite Negative (Negative) Urine Bilirubin Negative (Negative) Urine Urobilinogen 2.0 (<2.0) mg/dL Ur Leukocyte Esterase Small H (Negative) Urine RBC 182 H (0-5) /hpf Urine WBC 14 H (0-5) /hpf Ur Squamous Epith Cells 1 (0-4) /hpf Urine Bacteria Rare H (None) /hpf Urine Mucus Occasional H (None) /hpf Disposition Clinical Impression: Flank pain, Kidney stone Disposition: HOME SELF-CARE Condition: Stable Instructions (If sedation given, give patient instructions): Kidney Stones (ED) Prescriptions: Ketorolac [Toradol] 10 mg PO Q6HR #30 tab Ondansetron Odt [Zofran Odt] 4 mg PO Q8HR PRN #20 tab PRN Reason: Nausea Is patient prescribed a controlled substance at d/c from ED?: No Referrals: Daniel Sauceda DO [Primary Care Provider] - 1-2 days Time of Disposition: 03:30
--- NOTE | 2022-10-05 03:12 | CT ---
EXAM: CT Abdomen and Pelvis Without Intravenous Contrast CLINICAL HISTORY: ITS.REASON CT Reason: Kidney stone TECHNIQUE: Axial computed tomography images of the abdomen and pelvis without intravenous contrast. CTDI is 20 mGy and DLP is 1177.4 mGy-cm. This CT exam was performed using one or more of the following dose reduction techniques: automated exposure control, adjustment of the mA and/or kV according to patient size, and/or use of iterative reconstruction technique. COMPARISON: 07/25/22 FINDINGS: Lung bases are clear. There is a small sliding-type hiatal hernia. Gallbladder surgically absent. Stable common bile duct prominence is likely due to reservoir effect. There is fatty replacement of the pancreas. Liver, spleen, and adrenal glands are unremarkable. Kidneys are similar in size and contour, without hydronephrosis. There is a nonobstructing 4 mm left kidney midpole stone. Aorta is normal in caliber. There is no adenopathy. There is no free fluid or free air. Uterus is stable. There is a hypoattenuating lesion in the lower uterine segment/cervix which may represent a nabothian cyst. Urinary bladder is decompressed. Appendix is normal. There is no bowel obstruction or inflammation. There are postoperative changes of gastric bypass. Postsurgical scarring is noted in the anterior abdominal wall. Regional skeleton appears intact. IMPRESSION: 1. No hydronephrosis or obstructing ureteral stones. 2. Nonobstructing 4 mm left kidney stone.
[2022-10-05] MEDS ORDERED: HYDROcodone/APAP 5-325MG 1 EACH TAB PO STA (03:32)
== END 2022-10-05 03:50 | disposition home or self-care (01) ==
LOC: EC 22:24
DX: N20.0 Calculus of kidney (principal); J44.9 Chronic obstructive pulmonary disease, unspecified; I10 Essential (primary) hypertension; E78.5 Hyperlipidemia, unspecified; M19.90 Unspecified osteoarthritis, unspecified site; K21.9 Gastro-esophageal reflux disease without esophagitis; F41.9 Anxiety disorder, unspecified; F31.9 Bipolar disorder, unspecified; Z79.51 Long term (current) use of inhaled steroids; Z79.1 Long term (current) use of non-steroidal anti-inflammatories (NSAID); Z79.899 Other long term (current) drug therapy; Z88.5 Allergy status to narcotic agent; Z88.0 Allergy status to penicillin; Z88.6 Allergy status to analgesic agent; Z88.8 Allergy status to other drugs, medicaments and biological substances
CPT/HCPCS: 36415; 85025; 81001; 74176; 99284; 96374; 96361; J1885

== ENCOUNTER 2022-10-13 11:33 | Observation (INO) | payer OTHER ==
[2022-10-13] MEDS ORDERED: NITROGLYCERIN OINT 1 INCH/GM PACKET TOPICAL STA (12:22)
[2022-10-13] MEDS ORDERED: ASPIRIN 81 MG PO STA (12:22)
[2022-10-13] MEDS ORDERED: SODIUM CHLORIDE 0.9% 500 ML 500 ML IV STA (12:22)
--- NOTE | 2022-10-13 12:25 | ED ---
General Adult HPI - General Chief complaint: Chest Pain Stated complaint: syncope, chest pain Time Seen by Provider: 10/13/22 12:00 Source: patient, RN notes reviewed, old records reviewed Mode of arrival: ambulatory Limitations: no limitations - History of Present Illness Initial comments: This a 52-year-old female presents emergency Department complaining of chest pressure. Patient states the pain started in her back and now is in her chest. Patient states she took a Thornton and the back pain went away but she continues to have chest pain. Patient states nitroglycerin helped but the pain returned per patient states on the way here she passed out in a car for a minute or so. Patient also states she's had shortness of breath. Patient states he was no diaphoretic episode no nausea. Patient states the pain does radiate to her left jaw. Patient states couple years ago she had a cardiac catheterization which she states showed nothing. Patient denies any recent fever chills or cough per patient denies any injury. Patient has reproducible pain. Patient denies abdominal pain patient denies nausea vomiting diarrhea. - Related Data Home Medications Medication Instructions Recorded Confirmed Atorvastatin [Lipitor] 20 mg PO HS 03/27/14 09/19/22 Baclofen [Lioresal] 20 mg PO TID PRN 06/27/19 09/19/22 Metoprolol Succinate (ER) [Toprol 25 mg PO HS 06/08/22 09/19/22 XL] ARIPiprazole [Abilify] 10 mg PO HS 08/17/22 09/19/22 Albuterol Inhaler [Ventolin Hfa 2 puff INHALATION RT-Q4H PRN 08/17/22 09/19/22 Inhaler] Cholecalciferol [Vitamin D3 (25 25 mcg PO HS 08/17/22 09/19/22 Mcg = 1000 Iu)] Ferrous Sulfate [Feosol] 325 mg PO HS 08/17/22 09/19/22 Fluticasone Propion/Salmeterol 1 puff INHALATION RT-BID 08/17/22 09/19/22 [Advair 250-50 Diskus] Omeprazole 20 mg PO HS 08/17/22 09/19/22 Acetaminophen Tab [Tylenol] 650 mg PRN 09/19/22 Previous Rx's Medication Instructions Recorded HYDROcodone/APAP 5-325MG [Thornton 5] 1 each PO Q6HR PRN #12 tab 08/17/22 Ketorolac [Toradol] 10 mg PO Q6HR #30 tab 10/05/22 Ondansetron Odt [Zofran Odt] 4 mg PO Q8HR PRN #20 tab 10/05/22 Allergies Allergy/AdvReac Type Severity Reaction Status Date / Time codeine Allergy couldnt Verified 10/13/22 11:43 breathe Penicillins Allergy Rash/Hives Verified 10/13/22 11:43 clindamycin HCl AdvReac Itching Verified 10/13/22 11:43 [From Cleocin] clindamycin palmitate HCl AdvReac Itching Verified 10/13/22 11:43 [From Cleocin] clindamycin phosphate AdvReac Itching Verified 10/13/22 11:43 [From Cleocin] escitalopram oxalate AdvReac SEVERE Verified 10/13/22 11:43 [From Lexapro] HEADACHE levofloxacin [From Levaquin] AdvReac Itching Verified 10/13/22 11:43 Review of Systems ROS Statement: Those systems with pertinent positive or pertinent negative responses have been documented in the HPI. ROS Other: All systems not noted in ROS Statement are negative. Past Medical History Past Medical History: Asthma, Blood Disorder, Cancer, Chest Pain / Angina, COPD, Fibromyalgia, GERD/Reflux, Hyperlipidemia, Hypertension, Osteoarthritis (OA), Renal Disease, Syncope Additional Past Medical History / Comment(s): VERTIGO, anemia with blood transfusion in 2003, skin CA on face, arthritis generalized , hx syncope ,GS 2 per labs. , HX PMB, Kidney stones History of Any Multi-Drug Resistant Organisms: None Reported Past Surgical History: Bariatric Surgery, Cholecystectomy, Hernia Repair, Orthopedic Surgery, Tubal Ligation Additional Past Surgical History / Comment(s): GANGLION CYST FROM LT WRIST, CLAIRE-EN-Y 1999, arthritis on left hand bone removed by thumb, incisional hernia repair, colonoscopy, EGD, D&C Past Anesthesia/Blood Transfusion Reactions: No Reported Reaction Additional Past Anesthesia/Blood Transfusion Reaction / Comment(s): blood transfusion no issues Past Psychological History: Anxiety, Bipolar, Depression Smoking Status: Never smoker Past Alcohol Use History: None Reported Past Drug Use History: None Reported - Past Family History Father Family Medical History: Diabetes Mellitus, Hypertension Additional Family Medical History / Comment(s): cad with 6 stents Mother Family Medical History: Fibromyalgia Sister(s) Family Medical History: Asthma Daughter(s) Family Medical History: Asthma Son(s) Additional Family Medical History / Comment(s): adhd General Exam - General Exam Comments Initial Comments: GENERAL: Patient is well-developed and well-nourished. Patient is nontoxic and well- hydrated and is in mild distress. ENT: Neck is soft and supple. No significant lymphadenopathy is noted. Oropharynx is clear. Moist mucous membranes. Neck has full range of motion without eliciting any pain. EYES: The sclera were anicteric and conjunctiva were pink and moist. Extraocular movements were intact and pupils were equal round and reactive to light. Eyelids were unremarkable. PULMONARY: Unlabored respirations. Good breath sounds bilaterally. No audible rales rhonchi or wheezing was noted. CARDIOVASCULAR: There is a regular rate and rhythm without any murmurs gallops or rubs. ABDOMEN: Soft and nontender with normal bowel sounds. No palpable organomegaly was noted. There is no palpable pulsatile mass. SKIN: Skin is clear with no lesions or rashes and otherwise unremarkable. NEUROLOGIC: Patient is alert and oriented x3. Cranial nerves II through XII are grossly intact. Motor and sensory are also intact. Normal speech, volume and content. Symmetrical smile. MUSCULOSKELETAL: Normal extremities with adequate strength and full range of motion. No lower extremity swelling or edema. No calf tenderness. LYMPHATICS: No significant lymphadenopathy is noted PSYCHIATRIC: Normal psychiatric evaluation. Limitations: no limitations Course Vital Signs 10/13/22 11:39 Temperature 97.7 F Pulse Rate 53 L Respiratory 18 Rate Blood Pressure 113/75 O2 Sat by Pulse 100 Oximetry Medical Decision Making - Medical Decision Making EKG was interpreted by myself. EKG shows sinus bradycardia 50 bpm MS interval 153 QRSs 100 a QT interval is 472 QTC is 446. Patient's EKG shows some T-wave inversions in leads V3 through V6 as well as inferior leads. Patient states she's normally on a beta susan but she hasn't taken it weeks. Was pt. sent in by a medical professional or institution (, PA, ELECTROPHYSIOLOGY TECH, urgent care, hospital, or senior care...) When possible be specific @ -No Did you speak to anyone other than the patient for history (EMS, parent, family, police, friend...)? What history was obtained from this source @ -EMS gave most of the history that they received from the on the scene Did you review nursing and triage notes (agree or disagree)? Why? @ -I reviewed and agree with nursing and triage notes Were old charts reviewed (outside hosp., previous admission, EMS record, old EKG, old radiological studies, urgent care reports/EKG's, senior care records)? Report findings @ -Prior lab work and inpatient charts Differential Diagnosis (chest pain, altered mental status, abdominal pain women, abdominal pain men, vaginal bleeding, weakness, fever, dyspnea, syncope, headache, dizziness, GI bleed, back pain, seizure, CVA, palpatations, mental health, musculoskeletal)? @ -Differential CVA Ischemic stroke, hemorrhagic stroke, brain tumor, atypical migraine, Wernicke's encephalopathy, seizure, multiple sclerosis, meningitis, encephalitis, hypoglycemia, Guillain-Rubio, electrolytes disturbance, myasthenia gravis.... This is not meant to be an all-inclusive list EKG interpreted by me (3pts min.). @ -As above X-rays interpreted by me (1pt min.). @ -As x-ray was interpreted by myself that shows no acute abnormalities. CT interpreted by me (1pt min.). @ -None done U/S interpreted by me (1pt. min.). @ -None done What testing was considered but not performed or refused? (CT, X-rays, U/S, labs)? Why? @ -None What meds were considered but not given or refused? Why? @ -None Did you discuss the management of the patient with other professionals (professionals i.e. , PA, ELECTROPHYSIOLOGY TECH, lab, RT, psych nurse, social contact worker, brake press operator, teacher, security flex utility officer, supervisor case loading)? Give summary @ -I spoke with Dr. Freeman he agreed to admit the patient admitted the patient wrote admitting orders. Was smoking cessation discussed for >3mins.? @ -No Was critical care preformed (if so, how long)? @ -No Were there social determinants of health that impacted care today? How? (Homelessness, low income, unemployed, alcoholism, drug addiction, transportation, low edu. Level, literacy, decrease access to med. care, snf, rehab)? @ -No Was there de-escalation of care discussed even if they declined (Discuss DNR or withdrawal of care, Hospice)? DNR status @ -No What co-morbidities impacted this encounter? (DM, HTN, Smoking, COPD, CAD, Cancer, CVA, ARF, Chemo, Hep., AIDS, mental health diagnosis, sleep apnea, morbid obesity)? @ -None Was patient admitted / discharged? Hospital course, mention meds given and route, prescriptions, significant lab abnormalities, going to OR and other pertinent info. @ -Patient got Nitropaste in the emergency room was feeling better. Patient was never in any respiratory distress. Patient's lab work came back within normal range as did the chest x-ray. Patient will be admitted to Dr. Freeman I will write admitting orders and consult cardiology Undiagnosed new problem with uncertain prognosis? @ -No Drug Therapy requiring intensive monitoring for toxicity (Heparin, Nitro, Insulin, Cardizem)? @ -No Were any procedures done? @ -No Diagnosis/symptom? @ -Chest pain Acute, or Chronic, or Acute on Chronic? @ -Acute Uncomplicated (without systemic symptoms) or Complicated (systemic symptoms)? @ -Complicated Side effects of treatment? @ -No Exacerbation, Progression, or Severe Exacerbation? @ -No Poses a threat to life or bodily function? How? (Chest pain, [place], [place], pneumonia, PE, COPD, DKA, ARF, appy, cholecystitis, CVA, Diverticulitis, Homicidal, Suicidal, threat to staff... and all critical care pts) @ -Yes this could lead to an OH which could lead to poor perfusion and end organ dysfunction Diagnosis/symptom? @ -Syncope Acute, or Chronic, or Acute on Chronic? @ -Acute Uncomplicated (without systemic symptoms) or Complicated (systemic symptoms)? @ -Complicated Side effects of treatment? @ -none Exacerbation, Progression, or Severe Exacerbation] @ -no Poses a threat to life or bodily function? @ -This could be secondary to an arrhythmia which could lead to morbidity or mortality - Lab Data Result diagrams: 10/13/22 12:25 10/13/22 12:25 Lab Results 10/13/22 10/13/22 10/13/22 Range/Units 12:25 12:25 12:25 WBC 5.5 (3.8-10.6) k/uL RBC 4.83 (3.80-5.40) m/uL Hgb 14.8 (11.4-16.0) gm/dL Hct 42.6 (34.0-46.0) % MCV 88.2 (80.0-100.0) fL MCH 30.5 (25.0-35.0) pg MCHC 34.6 (31.0-37.0) g/dL RDW 13.9 (11.5-15.5) % Plt Count 314 (150-450) k/uL MPV 7.8 Neutrophils % 41 % Lymphocytes % 43 % Monocytes % 8 % Eosinophils % 4 % Basophils % 0 % Neutrophils # 2.3 (1.3-7.7) k/uL Lymphocytes # 2.4 (1.0-4.8) k/uL Monocytes # 0.4 (0-1.0) k/uL Eosinophils # 0.2 (0-0.7) k/uL Basophils # 0.0 (0-0.2) k/uL PT 9.9 (9.0-12.0) sec INR 0.9 (<1.2) APTT 21.8 L (22.0-30.0) sec Sodium 139 (137-145) mmol/L Potassium 3.9 (3.5-5.1) mmol/L Chloride 111 H (98-107) mmol/L Carbon Dioxide 18 L (22-30) mmol/L Anion Gap 10 mmol/L BUN 17 (7-17) mg/dL Creatinine 1.01 (0.52-1.04) mg/dL Est GFR (CKD-EPI)AfAm 73 (>60 ml/min/1.73 sqM) Est GFR (CKD-EPI)NonAf 63 (>60 ml/min/1.73 sqM) Glucose 104 H (74-99) mg/dL Calcium 9.6 (8.4-10.2) mg/dL Magnesium 1.7 (1.6-2.3) mg/dL Total Bilirubin 0.4 (0.2-1.3) mg/dL AST 21 (14-36) U/L ALT 18 (4-34) U/L Alkaline Phosphatase 91 (38-126) U/L Troponin I (0.000-0.034) ng/mL Total Protein 7.1 (6.3-8.2) g/dL Albumin 4.0 (3.5-5.0) g/dL 10/13/22 Range/Units 12:25 WBC (3.8-10.6) k/uL RBC (3.80-5.40) m/uL Hgb (11.4-16.0) gm/dL Hct (34.0-46.0) % MCV (80.0-100.0) fL MCH (25.0-35.0) pg MCHC (31.0-37.0) g/dL RDW (11.5-15.5) % Plt Count (150-450) k/uL MPV Neutrophils % % Lymphocytes % % Monocytes % % Eosinophils % % Basophils % % Neutrophils # (1.3-7.7) k/uL Lymphocytes # (1.0-4.8) k/uL Monocytes # (0-1.0) k/uL Eosinophils # (0-0.7) k/uL Basophils # (0-0.2) k/uL PT (9.0-12.0) sec INR (<1.2) APTT (22.0-30.0) sec Sodium (137-145) mmol/L Potassium (3.5-5.1) mmol/L Chloride (98-107) mmol/L Carbon Dioxide (22-30) mmol/L Anion Gap mmol/L BUN (7-17) mg/dL Creatinine (0.52-1.04) mg/dL Est GFR (CKD-EPI)AfAm (>60 ml/min/1.73 sqM) Est GFR (CKD-EPI)NonAf (>60 ml/min/1.73 sqM) Glucose (74-99) mg/dL Calcium (8.4-10.2) mg/dL Magnesium (1.6-2.3) mg/dL Total Bilirubin (0.2-1.3) mg/dL AST (14-36) U/L ALT (4-34) U/L Alkaline Phosphatase (38-126) U/L Troponin I <0.012 (0.000-0.034) ng/mL Total Protein (6.3-8.2) g/dL Albumin (3.5-5.0) g/dL Disposition Clinical Impression: Chest pain, Syncope Disposition: ADMITTED IP TO THIS HOSP Referrals: Daniel Sauceda DO [Primary Care Provider] - 1-2 days Time of Disposition: 14:24
[2022-10-13 12:46] LABS: Basophils % (A) 0 %; Eosinophils # (A) 0.2 k/uL (0-0.7); Eosinophils % (A) 4 %; HCT 42.6 % (34.0-46.0); HGB 14.8 gm/dL (11.4-16.0); Lymphocytes # (A) 2.4 k/uL (1.0-4.8); Lymphocytes % (A) 43 %; MCH 30.5 pg (25.0-35.0); MCHC 34.6 g/dL (31.0-37.0); MCV 88.2 fL (80.0-100.0); Mean Platelet Volume 7.8; Monocytes # (A) 0.4 k/uL (0-1.0); Monocytes % (A) 8 %; Neutrophils # (A) 2.3 k/uL (1.3-7.7); Neutrophils % (A) 41 %; Platelet Count 314 k/uL (150-450); RBC 4.83 m/uL (3.80-5.40); RDW 13.9 % (11.5-15.5); WBC 5.5 k/uL (3.8-10.6)
--- NOTE | 2022-10-13 13:00 | XR ---
EXAMINATION TYPE: XR chest 2V DATE OF EXAM: 10/13/2022 COMPARISON: 06/27/2019 INDICATION: Short of breath TECHNIQUE: Frontal and lateral views of the chest are obtained. FINDINGS: The heart size is normal. The pulmonary vasculature is normal. The lungs are clear. IMPRESSION: 1. No acute pulmonary process.
[2022-10-13 13:01] LABS: Calcium 9.6 mg/dL (8.4-10.2); Magnesium 1.7 mg/dL (1.6-2.3); Potassium 3.9 mmol/L (3.5-5.1); Total Bilirubin 0.4 mg/dL (0.2-1.3); Total Protein 7.1 g/dL (6.3-8.2)
[2022-10-13 13:30] LABS: INR 0.9 (<1.2); Prothrombin Time 9.9 sec (9.0-12.0)
[2022-10-13 13:40] LABS: Partial Thromboplastin Time 21.8 sec (22.0-30.0)
[2022-10-13] MEDS ORDERED: NITROGLYCERIN SL TABS 0.4 MG TAB SUBLINGUAL PRN (14:35)
[2022-10-13] MEDS ORDERED: ONDANSETRON ODT 4 MG TAB PO PRN (15:26)
[2022-10-13] MEDS ORDERED: ALBUTEROL NEBULIZED 2.5 MG/3 ML INHALATION PRN (15:26)
[2022-10-13] MEDS ORDERED: NALOXONE 0.4 MG/ML 1 ML VIAL IV PRN (15:29)
[2022-10-13] MEDS ORDERED: LACTULOSE 20 GM/30 ML CUP PO PRN (15:29)
[2022-10-13] MEDS ORDERED: MELATONIN 3 MG TABLET PO PRN (15:29)
[2022-10-13] MEDS ORDERED: ONDANSETRON 4 MG/2 ML VIAL IVP PRN (15:29)
[2022-10-13] MEDS ORDERED: CALCIUM CARBONATE 500 MG CHEWABLE PO PRN (15:29)
--- NOTE | 2022-10-13 17:05 | P.HPIM ---
History of Present Illness H&P Date: 10/13/22 Chief Complaint: Chest pain This is a pleasant 52-year-old patient of Dr. Veliz. Animal Rehabilitator Dr. Frances. Chronic stable medical conditions include asthma, fibromyalgia, GERD, hypertension, hyperlipidemia, she arthritis, skin cancer on the face, kidney stones, Valdemar-en-Y gastric bypass in 1999 bipolar Around 10:30 this morning patient did develop pain across the chest. Did radiate into his jaw. Some shortness of breath. [place] the heart racing. They were driving along with her then patient passed out for short time. Patient got nitroglycerin which he responded slowly on 1-1/2 hours afterwards. Currently chest pain-free. In 2013 underwent cardiac catheterization by Dr. english. Normal coronaries. In June 2019 underwent a stress test that was negative. Review of systems: GEN.: Tired EYES: None HEENT: None NECK: None RESPIRATORY: As above CARDIOVASCULAR: As above GASTROINTESTINAL: None GENITOURINARY: None MUSCULOSKELETAL: Joint aches and pains LYMPHATICS: None HEMATOLOGICAL: None PSYCHIATRY: None NEUROLOGICAL: None Past medical history to include: Asthma, fibromyalgia, GERD, hyperlipidemia, hypertension, or strep throat is, skin cancer on the face, kidney stones, Valdemar-en-Y gastric bypass surgery in 1999, bipolar Social history: No smoking. No alcohol. Lives with her . Physical examination: VITAL SIGNS: 97.7, 53, 18, 113/75, 100% room air GENERAL: BMI 36.1, reclining in bed awake comfortable. EYES: Pupils equal. Conjunctiva normal. HEENT: External appearance of nose and ears normal, oral cavity grossly normal. NECK: JVD not raised; masses not palpable. HEART: First and second heart sounds are normal; no edema. LUNGS: Respiratory rate normal; clear to auscultation. ABDOMEN: Soft, nontender, liver spleen not palpable, no masses palpable. PSYCH: Alert and oriented x3; mood and affect normal. Evidence of OA MUSCULOSKELETAL:No Clubbing/cyanosis;muscles-grossly intact NEUROLOGICAL: Cranial nerves grossly intact; no facial asymmetry, power and sensation grossly intact. LYMPHATICS: No lymph nodes palpable in the axilla and neck INVESTIGATIONS, reviewed in the clinical context: White count 5.5 hemoglobin 14.8 platelets 3.4 sodium 139 potassium 3.9 BUN 17 creatinine 1.01 EKG tracing personally reviewed by -sinus bradycardia. Rate 50. Flipped T waves in inferolateral leads Chest x-ray film personally reviewed by me-negative Assessment and plan: -Anterior chest wall pain, possible unstable angina. Relieved with nitroglycerin. Patient had a negative stress test in June 2019. normal c ardiac catheter[place] [address] frances Telemetry. Serial troponin. Aspirin. Toprol-XL -GERD 20 mg daily at bedtime when necessary Prilosec -Muscle spasms, chronic Baclofen 20 mg 3 times a day when necessary -Moderate persistent asthma Advair 250/50 one puff twice a day, albuterol when necessary -Hyperlipidemia Lipitor 20 mg daily at bedtime -Obesity BMI 36.1 Weight loss measures Discussed with patient and . Cardiology consulted. Past Medical History Past Medical History: Asthma, Blood Disorder, Cancer, Chest Pain / Angina, COPD, Fibromyalgia, GERD/Reflux, Hyperlipidemia, Hypertension, Osteoarthritis (OA), Renal Disease, Syncope Additional Past Medical History / Comment(s): VERTIGO, anemia with blood transf usion in 2003, skin CA on face, arthritis generalized , hx syncope ,GS 2 per labs. , HX PMB, Kidney stones History of Any Multi-Drug Resistant Organisms: None Reported Past Surgical History: Bariatric Surgery, Cholecystectomy, Hernia Repair, Orth opedic Surgery, Tubal Ligation Additional Past Surgical History / Comment(s): GANGLION CYST FROM LT WRIST, VALDEMAR-EN-Y 1999, arthritis on left hand bone removed by thumb, incisional hernia repair, colonoscopy, EGD, D&C Past Anesthesia/Blood Transfusion Reactions: No Reported Reaction Additional Past Anesthesia/Blood Transfusion Reaction / Comment(s): blood transfusion no issues Past Psychological History: Anxiety, Bipolar, Depression Smoking Status: Never smoker Past Alcohol Use History: None Reported Past Drug Use History: None Reported - Past Family History Father Family Medical History: Diabetes Mellitus, Hypertension Additional Family Medical History / Comment(s): cad with 6 stents Mother Family Medical History: Fibromyalgia Sister(s) Family Medical History: Asthma Daughter(s) Family Medical History: Asthma Son(s) Additional Family Medical History / Comment(s): adhd Medications and Allergies Home Medications Medication Instructions Recorded Confirmed Type Atorvastatin [Lipitor] 20 mg PO HS 03/27/14 10/13/22 History Baclofen [Lioresal] 20 mg PO TID PRN 06/27/19 10/13/22 History Albuterol Inhaler [Ventolin Hfa 2 puff INHALATION RT-Q4H PRN 08/17/22 10/13/22 History Inhaler] Fluticasone Propion/Salmeterol 1 puff INHALATION RT-BID 08/17/22 10/13/22 History [Advair 250-50 Diskus] Omeprazole 20 mg PO HS PRN 08/17/22 10/13/22 History Allergies Allergy/AdvReac Type Severity Reaction Status Date / Time codeine Allergy couldnt Verified 10/13/22 15:56 breathe Penicillins Allergy Rash/Hives Verified 10/13/22 15:56 clindamycin HCl AdvReac Itching Verified 10/13/22 15:56 [From Cleocin] clindamycin palmitate HCl AdvReac Itching Verified 10/13/22 15:56 [From Cleocin] clindamycin phosphate AdvReac Itching Verified 10/13/22 15:56 [From Cleocin] escitalopram oxalate AdvReac SEVERE Verified 10/13/22 15:56 [From Lexapro] HEADACHE levofloxacin [From Levaquin] AdvReac Itching Verified 10/13/22 15:56 Physical Exam Vitals: Vital Signs Temp Pulse Pulse Resp BP BP Pulse Ox 10/13/22 16:15 97.7 F 47 L 16 164/83 98 10/13/22 15:49 97.9 F 10/13/22 15:00 53 L 14 131/76 100 10/13/22 14:00 53 L 15 117/75 10/13/22 13:00 51 L 26 H 145/79 10/13/22 12:20 56 L 12 127/76 10/13/22 11:39 97.7 F 53 L 18 113/75 100 Intake and Output 10/13/22 10/13/22 10/13/22 06:59 14:59 22:59 Other: Weight 98.43 kg Results CBC & Chem 7: 10/13/22 12:25 10/13/22 12:25 Labs: Abnormal Lab Results - Last 24 Hours (Table) 10/13/22 10/13/22 Range/Units 12:25 12:25 APTT 21.8 L (22.0-30.0) sec Chloride 111 H (98-107) mmol/L Carbon Dioxide 18 L (22-30) mmol/L Glucose 104 H (74-99) mg/dL
[2022-10-13] MEDS: BACLOFEN 10 MG TAB PO PRN (17:36)
[2022-10-13] MEDS: NITROGLYCERIN OINT 1 INCH/GM PACKET TOPICAL SCH ×2 (17:37→23:14)
[2022-10-13] MEDS: ACETAMINOPHEN TAB 325 MG TAB PO PRN ×2 (17:37→23:14)
[2022-10-13] MEDS: SYMBICORT 80-4.5 MCG INHALER INHALATION SCH (19:23)
[2022-10-13] MEDS: ARIPiprazole 10 MG TAB PO SCH (20:09)
[2022-10-13] MEDS: PANTOPRAZOLE 40 MG TABLET PO SCH (20:11)
[2022-10-13] MEDS: CHOLECALCIFEROL 25 MCG (1000 IU) TABLET PO SCH (20:11)
[2022-10-13] MEDS ORDERED: ATORVASTATIN 20 MG TAB PO SCH (21:00)
[2022-10-13] MEDS ORDERED: METOPROLOL SUCCINATE (ER) 25 MG TAB.ER.24H PO SCH (21:00)
[2022-10-14] MEDS: BACLOFEN 10 MG TAB PO PRN ×3 (02:14→20:43)
[2022-10-14] MEDS: ACETAMINOPHEN TAB 325 MG TAB PO PRN (05:28)
[2022-10-14] MEDS: NITROGLYCERIN OINT 1 INCH/GM PACKET TOPICAL SCH (05:29)
[2022-10-14] MEDS: ASPIRIN 81 MG PO SCH (08:44)
[2022-10-14] MEDS ORDERED: ASPIRIN 325 MG TAB PO SCH (09:00)
[2022-10-14] MEDS: SYMBICORT 80-4.5 MCG INHALER INHALATION SCH ×2 (10:05→21:00)
[2022-10-14] MEDS ORDERED: ALPRAZolam 0.25 MG TAB PO PRN ×2 (11:05→13:08)
[2022-10-14] MEDS ORDERED: ALPRAZolam 0.5 MG TAB PO PRN ×2 (11:05→13:08)
[2022-10-14] MEDS ORDERED: NITROGLYCERIN SL TABS 0.4 MG TAB SUBLINGUAL PRN ×2 (11:05→13:08)
--- NOTE | 2022-10-14 11:05 | P.CRDCN ---
History of Present Illness History of present illness: HISTORY OF PRESENT ILLNESS: This is a 52-year-old female with a past medical history significant for GERD and hyperlipidemia. Patient follows in the office with Dr. Lora. We have been asked to see the patient in consultation for chest pain. Patient examined at the bedside. Patient states that she was riding in the car with her when she began to have pain in between her shoulder blades. She also states that she felt chest pain and describes it as there was a heavy weight sitting on her chest. She states the pain went into her jaw. She reports feeling short of breath and also having palpitations. The patient took one of her 's nitro sublingually. The states about 5 minutes after she took the nitro she passed out. The patient reports a history of syncope in the past and gives examples including when she gets her blood drawn. * EKG reveals sinus mechanism with T-wave inversions in inferior lateral leads. Prolonged QT. These changes are new from prior EKGs. * Chest xray negative for acute process * Laboratory data: WBC 5.5. Hemoglobin 14.8. Platelet count 314. Sodium 139. Potassium 3.9. BUN 17. Creatinine 1.01. Magnesium 1.7. Troponin negative 3 * Current home cardiac medications include Lipitor 20 mg at night * Most recent echocardiogram obtained in 2019 revealed normal ejection fraction * Cardiac catheterization history: 2013 revealing normal coronary arteries REVIEW OF SYSTEMS: At the time of my exam: CONSTITUTIONAL: Denies fever or chills. HEENT: Denies blurred vision, vision changes, or eye pain. Denies hemoptysis CARDIOVASCULAR: Denies chest pain. Denies orthopnea. Denies PND. Denies palpitations RESPIRATORY: Denies shortness of breath. GASTROINTESTINAL: Denies abdominal pain. Denies nausea or vomiting. HEMATOLOGIC: Denies bleeding disorders. GENITOURINARY: Denies any blood in urine. SKIN: Denies pruitis. Denies rash. PHYSICAL EXAM: VITAL SIGNS: Reviewed. GENERAL: Well-developed in no acute distress. HEENT: Head is normocephalic. Pupils are equal, round. Sclerae anicteric. Mucous membranes of the mouth are moist. Neck supple. No JVD or thyromegaly LUNGS: Respirations even and unlabored. Lungs essentially clear to auscultation bilaterally. HEART: Regular rate and rhythm. S1 and S2 heard. ABDOMEN: Soft. Nondistended. Nontender. EXTREMITIES: Normal range of motion. No clubbing or cyanosis. Peripheral pulses intact. No lower extremity edema NEUROLOGIC: Awake and alert. Oriented x 3. ASSESSMENT: Chest pain with abnormal EKG, troponin negative 3 Prolonged QT, patient reports occasional history of taking Zofran History of vasovagal syncope Hyperlipidemia GERD PLAN: Obtain 2-D echo to assess cardiac structure and function Hold beta blockers at this time as patient is bradycardic Discontinue nitro as this caused patient to have a syncopal episode Increase patient's atorvastatin Add aspirin 81 mg daily Patient to undergo cardiac catheterization on Monday with Dr. Lora Nurse practitioner note has been reviewed by physician. Signing provider agrees with the documented findings, assessment, and plan of care. Past Medical History Past Medical History: Asthma, Blood Disorder, Cancer, Chest Pain / Angina, COPD, Fibromyalgia, GERD/Reflux, Hyperlipidemia, Hypertension, Osteoarthritis (OA), Renal Disease, Syncope Additional Past Medical History / Comment(s): VERTIGO, anemia with blood transfusion in 2003, skin CA on face, arthritis generalized , hx syncope ,GS 2 per labs. , HX PMB, Kidney stones History of Any Multi-Drug Resistant Organisms: None Reported Past Surgical History: Bariatric Surgery, Cholecystectomy, Hernia Repair, Orthopedic Surgery, Tubal Ligation Additional Past Surgical History / Comment(s): GANGLION CYST FROM LT WRIST, CLAIRE-EN-Y 1999, arthritis on left hand bone removed by thumb, incisional hernia repair, colonoscopy, EGD, D&C Past Anesthesia/Blood Transfusion Reactions: No Reported Reaction Additional Past Anesthesia/Blood Transfusion Reaction / Comment(s): blood transfusion no issues Past Psychological History: Anxiety, Bipolar, Depression Smoking Status: Never smoker Past Alcohol Use History: None Reported Past Drug Use History: None Reported - Past Family History Father Family Medical History: Diabetes Mellitus, Hypertension Additional Family Medical History / Comment(s): cad with 6 stents Mother Family Medical History: Fibromyalgia Sister(s) Family Medical History: Asthma Daughter(s) Family Medical History: Asthma Son(s) Additional Family Medical History / Comment(s): adhd Medications and Allergies Home Medications Medication Instructions Recorded Confirmed Type Atorvastatin [Lipitor] 20 mg PO HS 03/27/14 10/13/22 History Baclofen [Lioresal] 20 mg PO TID PRN 06/27/19 10/13/22 History Albuterol Inhaler [Ventolin Hfa 2 puff INHALATION RT-Q4H PRN 08/17/22 10/13/22 History Inhaler] Fluticasone Propion/Salmeterol 1 puff INHALATION RT-BID 08/17/22 10/13/22 History [Advair 250-50 Diskus] Omeprazole 20 mg PO HS PRN 08/17/22 10/13/22 History Allergies Allergy/AdvReac Type Severity Reaction Status Date / Time codeine Allergy couldnt Verified 10/13/22 15:56 breathe Penicillins Allergy Rash/Hives Verified 10/13/22 15:56 clindamycin HCl AdvReac Itching Verified 10/13/22 15:56 [From Cleocin] clindamycin palmitate HCl AdvReac Itching Verified 10/13/22 15:56 [From Cleocin] clindamycin phosphate AdvReac Itching Verified 10/13/22 15:56 [From Cleocin] escitalopram oxalate AdvReac SEVERE Verified 10/13/22 15:56 [From Lexapro] HEADACHE levofloxacin [From Levaquin] AdvReac Itching Verified 10/13/22 15:56 Physical Exam Vitals: Vital Signs Temp Pulse Pulse Resp BP BP Pulse Ox 10/14/22 07:00 97.9 F 51 L 13 104/63 10/14/22 02:15 98.1 F 52 L 18 104/63 97 10/13/22 20:00 52 L 17 10/13/22 19:48 98.0 F 52 L 17 113/64 99 10/13/22 16:15 97.7 F 47 L 16 164/83 98 10/13/22 15:49 97.9 F 10/13/22 15:00 53 L 14 131/76 100 10/13/22 14:00 53 L 15 117/75 10/13/22 13:00 51 L 26 H 145/79 10/13/22 12:20 56 L 12 127/76 10/13/22 11:39 97.7 F 53 L 18 113/75 100 Intake and Output 10/13/22 10/14/22 10/14/22 22:59 06:59 14:59 Intake Total 250 Balance 250 Intake: Oral 250 Other: Voiding Method Toilet # Voids 2 Weight 98.43 kg Results 10/13/22 12:25 10/13/22 12:25 Cardiac Enzymes 10/13/22 10/13/22 10/13/22 Range/Units 12:25 12:25 15:06 AST 21 (14-36) U/L Troponin I <0.012 <0.012 (0.000-0.034) ng/mL 10/13/22 Range/Units 18:15 AST (14-36) U/L Troponin I <0.012 (0.000-0.034) ng/mL Coagulation 10/13/22 Range/Units 12:25 PT 9.9 (9.0-12.0) sec APTT 21.8 L (22.0-30.0) sec CBC 10/13/22 Range/Units 12:25 WBC 5.5 (3.8-10.6) k/uL RBC 4.83 (3.80-5.40) m/uL Hgb 14.8 (11.4-16.0) gm/dL Hct 42.6 (34.0-46.0) % Plt Count 314 (150-450) k/uL Comprehensive Metabolic Panel 10/13/22 Range/Units 12:25 Sodium 139 (137-145) mmol/L Potassium 3.9 (3.5-5.1) mmol/L Chloride 111 H (98-107) mmol/L Carbon Dioxide 18 L (22-30) mmol/L BUN 17 (7-17) mg/dL Creatinine 1.01 (0.52-1.04) mg/dL Glucose 104 H (74-99) mg/dL Calcium 9.6 (8.4-10.2) mg/dL AST 21 (14-36) U/L ALT 18 (4-34) U/L Alkaline Phosphatase 91 (38-126) U/L Total Protein 7.1 (6.3-8.2) g/dL Albumin 4.0 (3.5-5.0) g/dL Current Medications Generic Name Dose Route Start Last Admin Trade Name Freq PRN Reason Stop Dose Admin Acetaminophen 650 mg 10/13/22 15:29 10/14/22 05:28 Acetaminophen Tab 325 Mg Tab PO 650 mg Q6HR PRN Administration Mild Pain or Fever > 100.5 Hydrocodone Bitart/Acetaminophen 1 each 10/13/22 15:26 Hydrocodone/Apap 5-325mg 1 Each Tab PO Q6HR PRN Pain Albuterol Sulfate 2.5 mg 10/13/22 15:26 Albuterol Nebulized 2.5 Mg/3 Ml INHALATION RT-Q4H PRN Shortness Of Breath Aripiprazole 10 mg 10/13/22 21:00 10/13/22 20:09 Aripiprazole 10 Mg Tab PO Not Given HS [facility] Aspirin 325 mg 10/14/22 09:00 Aspirin 325 Mg Tab PO DAILY BRANDEE Atorvastatin Calcium 20 mg 10/13/22 21:00 10/13/22 20:11 Atorvastatin 20 Mg Tab PO 20 mg HS BRANDEE Administration Baclofen 20 mg 10/13/22 15:26 10/14/22 02:14 Baclofen 10 Mg Tab PO 20 mg TID PRN Administration MUSCLE SPASMS Budesonide/Formoterol Fumarate 2 puff 10/13/22 20:00 10/13/22 19:23 Symbicort 80-4.5 Mcg Inhaler INHALATION Not Given RT-BID [facility] Calcium Carbonate/Glycine 1,000 mg 10/13/22 15:29 Calcium Carbonate 500 Mg Chewable PO Q4HR PRN Dyspepsia Cholecalciferol 25 mcg 10/13/22 21:00 10/13/22 20:11 Cholecalciferol 25 Mcg (1000 Iu) Tablet PO 25 mcg HS [facility] Administration Lactulose 20 gm 10/13/22 15:29 Lactulose 20 Gm/30 Ml Cup PO DAILY PRN Constipation Melatonin 3 mg 10/13/22 15:29 10/13/22 23:24 Melatonin 3 Mg Tablet PO 3 mg HS PRN Administration Insomnia Metoprolol Succinate 25 mg 10/13/22 21:00 10/13/22 20:10 Metoprolol Succinate (Er) 25 Mg Tab.Er.24h PO Not Given HS [facility] Naloxone HCl 0.2 mg 10/13/22 15:29 Naloxone 0.4 Mg/Ml 1 Ml Vial IV Q2M PRN Opioid Reversal Nitroglycerin 0.4 mg 10/13/22 14:35 Nitroglycerin Sl Tabs 0.4 Mg Tab SUBLINGUAL Q5M PRN Chest Pain Nitroglycerin 1 inch 10/13/22 18:00 10/14/22 05:29 Nitroglycerin Oint 1 Inch/Gm Packet TOPICAL Not Given Q6HR [facility] Ondansetron HCl 4 mg 10/13/22 15:26 Ondansetron Odt 4 Mg Tab PO Q8HR PRN Nausea Pantoprazole Sodium 40 mg 10/13/22 21:00 10/13/22 20:11 Pantoprazole 40 Mg Tablet PO 40 mg HS BRANDEE Administration Intake and Output 10/13/22 10/14/22 10/14/22 22:59 06:59 14:59 Intake Total 250 Balance 250 Intake: Oral 250 Other: Voiding Method Toilet # Voids 2 Weight 98.43 kg 10/13/22 12:25 10/13/22 12:25
[2022-10-14] MEDS: HYDROcodone/APAP 5-325MG 1 EACH TAB PO PRN ×2 (11:12→21:59)
[2022-10-14 11:17] LABS: Chol/HDL Ratio 4.31 Ratio; LDL Cholesterol,Calculated 136.1 mg/dL (0.0-131.0)
[2022-10-14] MEDS ORDERED: ONDANSETRON 4 MG/2 ML VIAL IVP PRN (19:53)
[2022-10-14] MEDS: ARIPiprazole 10 MG TAB PO SCH (20:41)
[2022-10-14] MEDS: PANTOPRAZOLE 40 MG TABLET PO SCH (20:45)
[2022-10-14] MEDS: CHOLECALCIFEROL 25 MCG (1000 IU) TABLET PO SCH (20:45)
[2022-10-14] MEDS ORDERED: ATORVASTATIN 40 MG TAB PO SCH (21:00)
--- NOTE | 2022-10-14 22:18 | P.PN ---
Progress Note - Text Progress Note Date: 10/14/22 Chief Complaint: Chest pain This is a pleasant 52-year-old patient of Dr. Veliz. [employer] Dr. Frances. Chronic stable medical conditions include asthma, fibromyalgia, GERD, hypertension, hyperlipidemia, she arthritis, skin cancer on the face, kidney stones, Valdemar-en-Y gastric bypass in 1999 bipolar Around 10:30 this morning patient did develop pain across the chest. Did radiate into his jaw. Some shortness of breath. [place] the heart racing. They were driving along with her then patient passed out for short time. Patient got nitroglycerin which he responded slowly on 1-1/2 hours afterwards. Currently chest pain-free. In 2013 underwent cardiac catheterization by Dr. frances. Normal coronaries. In June 2019 underwent a stress test that was negative. October 14: Per cardiology. Discontinue nitro. Increase Lipitor. Aspirin 81 mg. Patient for cardiac catheterization on Monday. Patient displaced of the timing of the same. Explained. Active Medications Acetaminophen (Acetaminophen Tab 325 Mg Tab) 650 mg PO Q6HR PRN PRN Reason: Mild Pain or Fever > 100.5 Last Admin: 10/14/22 05:28 Dose: 650 mg Hydrocodone Bitart/Acetaminophen (Hydrocodone/Apap 5-325mg 1 Each Tab) 1 each PO Q6HR PRN PRN Reason: Pain Last Admin: 10/14/22 21:59 Dose: 1 each Albuterol Sulfate (Albuterol Nebulized 2.5 Mg/3 Ml) 2.5 mg INHALATION RT-Q4H PRN PRN Reason: Shortness Of Breath Alprazolam (Alprazolam 0.25 Mg Tab) 0.25 mg PO Q6HR PRN PRN Reason: Mild Anxiety Last Admin: 10/14/22 18:48 Dose: 0.25 mg Alprazolam (Alprazolam 0.5 Mg Tab) 0.5 mg PO Q6HR PRN PRN Reason: Moderate Anxiety Aripiprazole (Aripiprazole 10 Mg Tab) 10 mg PO HS [facility] Last Admin: 10/14/22 20:41 Dose: Not Given Aspirin (Aspirin 81 Mg) 81 mg PO DAILY BRANDEE Last Admin: 10/14/22 08:44 Dose: 81 mg Aspirin (Aspirin 325 Mg Tab) 325 mg PO ONCE ONE Stop: 10/15/22 05:01 Atorvastatin Calcium (Atorvastatin 40 Mg Tab) 40 mg PO [facility] Last Admin: 10/14/22 20:45 Dose: 40 mg Atorvastatin Calcium (Atorvastatin 80 Mg Tab) 80 mg PO ONCE ONE Stop: 10/15/22 05:01 Baclofen (Baclofen 10 Mg Tab) 20 mg PO TID PRN PRN Reason: MUSCLE SPASMS Last Admin: 10/14/22 20:43 Dose: 20 mg Budesonide/Formoterol Fumarate (Symbicort 80-4.5 Mcg Inhaler) 2 puff INHALATION RT-BID [facility] Last Admin: 10/14/22 21:00 Dose: Not Given Calcium Carbonate/Glycine (Calcium Carbonate 500 Mg Chewable) 1,000 mg PO Q4HR PRN PRN Reason: Dyspepsia Cholecalciferol (Cholecalciferol 25 Mcg (1000 Iu) Tablet) 25 mcg PO [facility] Last Admin: 10/14/22 20:45 Dose: 25 mcg Sodium Chloride 1,000 ml/ IV (Solution) 1,000 mls @ 98.43 mls/hr IV .[id number] [facility] Heparin Sodium (Porcine) 10, (000 unit/ Sodium Chloride) 1,001 mls @ 999 mls/hr IRRIGATION ONCE PRN PRN Reason: INTRA-OP Stop: 10/17/22 23:00 Heparin Sodium (Porcine) 2,500 (unit/ Sodium Chloride) 250.5 mls @ 250 mls/hr IRRIGATION ONCE PRN PRN Reason: INTRA-OP Stop: 10/17/22 23:00 Lactulose (Lactulose 20 Gm/30 Ml Cup) 20 gm PO DAILY PRN PRN Reason: Constipation Melatonin (Melatonin 3 Mg Tablet) 3 mg PO HS PRN PRN Reason: Insomnia Last Admin: 10/13/22 23:24 Dose: 3 mg Naloxone HCl (Naloxone 0.4 Mg/Ml 1 Ml Vial) 0.2 mg IV Q2M PRN PRN Reason: Opioid Reversal Nitroglycerin (Nitroglycerin Sl Tabs 0.4 Mg Tab) 0.4 mg SUBLINGUAL Q5M PRN PRN Reason: Chest Pain Ondansetron HCl (Ondansetron 4 Mg/2 Ml Vial) 4 mg IVP Q8HR PRN PRN Reason: Nausea And Vomiting Last Admin: 10/14/22 20:44 Dose: 4 mg Pantoprazole Sodium (Pantoprazole 40 Mg Tablet) 40 mg PO [facility] Last Admin: 10/14/22 20:45 Dose: 40 mg Past medical history to include: Asthma, fibromyalgia, GERD, hyperlipidemia, hypertension, or strep throat is, skin cancer on the face, kidney stones, Valdemar-en-Y gastric bypass surgery in 1999, bipolar Social history: No smoking. No alcohol. Lives with her . Physical examination: VITAL SIGNS: 98.2, 83, 16, 131/83, 98% room air GENERAL: BMI 36.1, reclining in bed awake comfortable. EYES: Pupils equal. Conjunctiva normal. HEENT: External appearance of nose and ears normal, oral cavity grossly normal. NECK: JVD not raised; masses not palpable. HEART: First and second heart sounds are normal; no edema. LUNGS: Respiratory rate normal; clear to auscultation. ABDOMEN: Soft, nontender, liver spleen not palpable, no masses palpable. PSYCH: Alert and oriented x3; mood and affect normal. Evidence of OA MUSCULOSKELETAL:No Clubbing/cyanosis;muscles-grossly intact INVESTIGATIONS, reviewed in the clinical context: LDL 136 White count 5.5 hemoglobin 14.8 platelets 3.4 sodium 139 potassium 3.9 BUN 17 creatinine 1.01 EKG tracing personally reviewed by me-sinus bradycardia. Rate 50. Flipped T waves in inferolateral leads Chest x-ray film personally reviewed by me-negative Assessment and plan: -Anterior chest wall pain, possible unstable angina. Relieved with nitroglycerin. Patient had a negative stress test in June 2019. normal cardiac catheterization [place] [address] frances Telemetry. Aspirin. Toprol-XL discontinued because of bradycardia. 4 cardiac catheterization on Monday -GERD 20 mg daily at bedtime when necessary Prilosec -Prolonged QT interval -Muscle spasms, chronic Baclofen 20 mg 3 times a day when necessary -Moderate persistent asthma Advair 250/50 one puff twice a day, albuterol when necessary -Hyperlipidemia Lipitor 40 mg daily at bedtime -Obesity BMI 36.1 Weight loss measures 4 cardiac cath on Monday.
[2022-10-15] MEDS ORDERED: ATORVASTATIN 80 MG TAB PO ONE (05:00)
[2022-10-15] MEDS ORDERED: ASPIRIN 325 MG TAB PO ONE (05:00)
[2022-10-15] MEDS: HYDROcodone/APAP 5-325MG 1 EACH TAB PO PRN (05:59)
[2022-10-15] MEDS ORDERED: HEPARIN SODIUM,PORCINE 2,500 UNIT in SODIUM CHLORIDE 0.9% 250 ML IRRIGATION PRN (07:00)
[2022-10-15] MEDS ORDERED: HEPARIN SODIUM,PORCINE 10,000 UNIT in SODIUM CHLORIDE 0.9% 1,000 ML IRRIGATION PRN (07:00)
[2022-10-15] MEDS: ASPIRIN 81 MG PO SCH (07:10)
[2022-10-15] MEDS ORDERED: VERAPAMIL 2.5 MG/ML 2 ML AMP ONE (08:52)
[2022-10-15] MEDS ORDERED: fentaNYL (PF) 50 MCG/ML 2 ML AMP ONE (08:53)
[2022-10-15] MEDS ORDERED: HEPARIN SODIUM 1,000 UN/ML (10ML VL) ONE (08:53)
[2022-10-15] MEDS: SYMBICORT 80-4.5 MCG INHALER INHALATION SCH (08:56)
[2022-10-15] MEDS ORDERED: IV FLUID CONTINUATION 1,000 ML IV ONE (09:02)
[2022-10-15] MEDS ORDERED: fentaNYL (PF) 50 MCG/ML 2 ML AMP IV ONE (09:09)
[2022-10-15] MEDS ORDERED: LIDOCAINE 1% INJ 10MG/ML (5 ML VIAL-PF) SQ ONE (09:16)
[2022-10-15] MEDS ORDERED: MIDAZOLAM 2 MG/2 ML VIAL IV ONE (09:17)
[2022-10-15] MEDS ORDERED: VERAPAMIL SYRINGE (5 MG/10 ML) INTRAARTER ONE (09:19)
[2022-10-15] MEDS ORDERED: HEPARIN SODIUM 1,000 UN/ML (10ML VL) IV ONE (09:23)
[2022-10-15] MEDS ORDERED: IOPAMIDOL-370 125ML BTL INJ ONE (09:30)
[2022-10-15] MEDS ORDERED: RX INFO: IV CONTRAST WAS GIVEN 1 EACH MISC MISCELLANE PRN (09:39)
[2022-10-15] MEDS ORDERED: amLODIPine 5 MG TAB PO SCH (09:45)
[2022-10-15] MEDS ORDERED: SODIUM CHLORIDE 0.9% 1,000 ML IV SCH (09:45)
--- NOTE | 2022-10-15 09:45 | P.CARDCATH ---
Date of Procedure: 10/15/22 Description of Procedure: Cardiac Catheterization: The patient is a 52-year-old female with a history of hyperlipidemia who presented with chest and back discomfort and dynamic T-wave inversion in the anterior leads without troponin changes. Recommendations were made regarding cardiac catheterization, the risks and the complications were discussed with the patient who is in full understanding and agreement. Procedure Description: Patient was brought to laboratory engineer in fasting semi-sedated state after receiving Fentanyl and Benadryl achieiving moderate conscious sedated state. Using Xylocaine Anesthesia and Seldinger technique, a 6-[place] sheath was introduced in the right radial artery . Subsequently, selective coronary angiography was performed using a 5-[place] 3.5 bend Mando catheter. Multiple views of the coronary artery including hemiaxial views were obtained. The 5-[place] Citizen pigtail catheter was used to cross the aortic valve and LVEDP was calculated. Left ventriculogram was performed in the CASEY view. Following that, catheter and sheath were removed. Hemostasis was obtained with deployment of TR band . There was no immediate complication. Patient was returned to room in stable condition. Of note, the patient received a total of 5000 units of intravenous heparin as well as intra-arterial verapamil. Findings: Left main: This is a large size vessel that has no evidence of high-grade stenosis, bifurcates into LAD and left circumflex. LAD: This is a large size vessel reaching to the apex giving rise to a large diagonal branch, the LAD and its branches have no evidence of obstructive disease Left circumflex: This is a large nondominant vessel giving rise to 2 large obtuse marginal branch that had no evidence of high-grade stenosis RCA: This is a large dominant vessel bifurcating distally into PDA and PLV, the right coronary artery and its branches have no evidence of obstructive coronary disease Left Ventriculogram: Performed in the CASEY view and revealed a normal left ventricle size and systolic function Hemodynamics: There was no gradient across the aortic valve , LVEDP was 5-10 mmHg Conclusion: 1. Normal coronary arteries 2. Low LVEDP 3. Normal ventricle size and systolic function 4. Right dominance Recommendations: Her symptoms could be related to vasospastic disease, the patient will be started on a calcium channel susan in addition to aggressive coronary risks modifications and depending on her progress further recommendations will be made.. The findings and the recommendations were discussed with the patient and the family and they were in full understanding and agreement. Duration of sedation is 16 minutes.
[2022-10-15 10:52] VITALS: TEMP 97.6
--- NOTE | 2022-10-15 12:28 | CA ---
Transthoracic Echo Report Name: Lola Vasquez Age: 52 Gender: F : 1970 Exam Date: 10/14/2022 10:28 Exam Location: [facility] Ht (in): 65 Wt (lb): 217 Ordering Physician: Becca Ma Attending/Referring Phys: [id number], Francesca Director Foundation Brittany Hurtado RDCS Procedure CPT: Indications: LV function, EKG changes, chest pain Cardiac Hx: Technical Quality: Fair Contrast 1: Total Dose (mL): Contrast 2: Total Dose (mL): MEASUREMENTS (Male / Female) Normal Values 2D ECHO LV Diastolic Diameter PLAX 4.3 cm 4.2 - 5.9 / 3.9 - 5.3 cm LV Systolic Diameter PLAX 3.0 cm IVS Diastolic Thickness 1.2 cm 0.6 - 1.0 / 0.6 - 0.9 cm LVPW Diastolic Thickness 1.7 cm 0.6 - 1.0 / 0.6 - 0.9 cm LV Relative Wall Thickness 0.7 RV Internal Dim ED PLAX 3.3 cm LV Diastolic Volume MOD 4C 71.6 cm??? LV Systolic Volume MOD 4C 34.2 cm??? LV Ejection Fraction MOD 4C 52.2 % LV Diastolic Length 4C 8.2 cm LV Systolic Length 4C 6.0 cm LA Volume 45.3 cm??? 18 - 58 / 22 - 52 cm??? M-MODE Aortic Root Diameter MM 2.7 cm AV Cusp Separation MM 1.8 cm DOPPLER LVOT Peak Velocity 86.0 cm/s LVOT Peak Gradient 3.0 mmHg MV Area PHT 2.4 cm??? MR Peak Velocity 387.7 cm/s MR Peak Gradient 60.1 mmHg Mitral E Point Velocity 65.3 cm/s Mitral A Point Velocity 85.3 cm/s Mitral E to A Ratio 0.8 MV Deceleration Time 316.8 ms TR Peak Velocity 211.7 cm/s TR Peak Gradient 17.9 mmHg FINDINGS Left Ventricle Mildly increased septal wall thickness. Mildly increased posterior wall thickness. Left ventricular cavity size normal. Left ventricular ejection fraction is estimated at 55-60 %. Right Ventricle Normal right ventricular size. Normal right ventricular global systolic function. Right ventricular systolic pressure within normal limits. Right Atrium Normal right atrial size. Left Atrium Normal left atrial size. Mitral Valve Structurally normal mitral valve. Mild mitral regurgitation. Aortic Valve Trileaflet aortic valve. Tricuspid Valve Mild tricuspid regurgitation. Pulmonic Valve Mild pulmonic regurgitation. Pericardium No pericardial or pleural effusion. Aorta Normal size aortic root and proximal ascending aorta. CONCLUSIONS Left ventricular ejection fraction 55-60% Mild mitral regurgitation Mild tricuspid regurgitation Previewed by: Dr. Asif Thomas DO (Electronically Signed) Final Date: 15 October 2022 12:28
[2022-10-15 13:55] VITALS: BP 141/87; PULSE 50; RESP 16
--- NOTE | 2022-10-15 23:53 | P.DS ---
Providers Date of admission: 10/13/22 14:38 Expected date of discharge: 10/15/22 Attending physician: Guanaco Freeman Consults: 10/13/22 14:35 Consult Physician Urgent Consulting Provider: [facility] Consult Reason/Comments: Chest pain, syncope Do you want consulting provider notified?: Yes Primary care physician: Daniel Renteria [facility] Course: Chief Complaint: Chest pain This is a pleasant 52-year-old patient of Dr. Veliz. Hand Riveter Dr. Frances. Chronic stable medical conditions include asthma, fibromyalgia, GERD, hypertension, hyperlipidemia, she arthritis, skin cancer on the face, kidney stones, Valdemar-en-Y gastric bypass in 1999 bipolar Around 10:30 this morning patient did develop pain across the chest. Did radiate into his jaw. Some shortness of breath. Marshall the heart racing. They were driving along with her then patient passed out for short time. Patient got nitroglycerin which he responded slowly on 1-1/2 hours afterwards. Currently chest pain-free. In 2013 underwent cardiac catheterization by Dr. frances. Normal coronaries. In June 2019 underwent a stress test that was negative. October 14: Per cardiology. Discontinue nitro. Increase Lipitor. Aspirin 81 mg. Patient for cardiac catheterization on Monday. Patient displaced of the timing of the same. Explained. October 15: Patient underwent cardiac cath this morning. No blockages. Marshall to be vasospastic. Amlodipine added. Questions were answered to the patient and . ALLISON inhibitor discontinued. Discussion and discharge planning more than 35 minutes Past medical history to include: Asthma, fibromyalgia, GERD, hyperlipidemia, hypertension, or strep throat is, skin cancer on the face, kidney stones, Valdemar-en-Y gastric bypass surgery in 1999, bipolar Social history: No smoking. No alcohol. Lives with her . Physical examination: VITAL SIGNS: 50, 16, 141/87, 99% room air GENERAL: BMI 36.1, reclining in bed awake comfortable. EYES: Pupils equal. Conjunctiva normal. HEENT: External appearance of nose and ears normal, oral cavity grossly normal. NECK: JVD not raised; masses not palpable. HEART: First and second heart sounds are normal; no edema. LUNGS: Respiratory rate normal; clear to auscultation. ABDOMEN: Soft, nontender, liver spleen not palpable, no masses palpable. PSYCH: Alert and oriented x3; mood and affect normal. Evidence of OA MUSCULOSKELETAL:No Clubbing/cyanosis;muscles-grossly intact INVESTIGATIONS, reviewed in the clinical context: Cardiac catheterization: Normal coronaries LDL 136 White count 5.5 hemoglobin 14.8 platelets 3.4 sodium 139 potassium 3.9 BUN 17 creatinine 1.01 EKG tracing personally reviewed by me-sinus bradycardia. Rate 50. Flipped T waves in inferolateral leads Chest x-ray film personally reviewed by me-negative Assessment and plan: -Anterior chest wall pain, vasospastic disease.. Relieved with nitroglycerin. Patient had a negative stress test in June 2019. normal cardiac catheterization [place] [address] frances Telemetry. Aspirin. Toprol-XL discontinued because of bradycardia. Cardiac catheterization showed normal coronaries. Amlodipine added. -GERD 20 mg daily at bedtime when necessary Prilosec -Prolonged QT interval -Muscle spasms, chronic Baclofen 20 mg 3 times a day when necessary -Moderate persistent asthma Advair 250/50 one puff twice a day, albuterol when necessary -Hyperlipidemia Lipitor 40 mg daily at bedtime -Obesity BMI 36.1 Weight loss measures Disposition: Home Plan - Discharge Summary Discharge Rx Participant: Yes New Discharge Prescriptions: New Aspirin 81 mg PO DAILY tab Atorvastatin [Lipitor] 40 mg PO HS #30 tab Nitroglycerin Sl Tabs [Nitrostat] 0.4 mg SUBLINGUAL Q5M PRN #30 tab PRN Reason: Chest Pain amLODIPine [Norvasc] 5 mg PO DAILY #30 tab Continue Baclofen [Lioresal] 20 mg PO TID PRN PRN Reason: MUSCLE SPASMS Fluticasone Propion/Salmeterol [Advair 250-50 Diskus] 1 puff INHALATION RT- BID Omeprazole 20 mg PO HS PRN PRN Reason: gerd Albuterol Inhaler [Ventolin Hfa Inhaler] 2 puff INHALATION RT-Q4H PRN PRN Reason: Shortness Of Breath Discontinued Atorvastatin [Lipitor] 20 mg PO HS Discharge Medication List Baclofen [Lioresal] 20 mg PO TID PRN 06/27/19 [History] Albuterol Inhaler [Ventolin Hfa Inhaler] 2 puff INHALATION RT-Q4H PRN 08/17/22 [History] Fluticasone Propion/Salmeterol [Advair 250-50 Diskus] 1 puff INHALATION RT-BID 08/17/22 [History] Omeprazole 20 mg PO HS PRN 08/17/22 [History] Aspirin 81 mg PO DAILY tab 10/15/22 [Rx] Atorvastatin [Lipitor] 40 mg PO HS #30 tab 10/15/22 [Rx] Nitroglycerin Sl Tabs [Nitrostat] 0.4 mg SUBLINGUAL Q5M PRN #30 tab 10/15/22 [Rx] amLODIPine [Norvasc] 5 mg PO DAILY #30 tab 10/15/22 [Rx] Follow up Appointment(s)/Referral(s): Gerson Frances MD [STAFF PHYSICIAN] - 10/21/22 3:00 pm Daniel Sauceda DO [Primary Care Provider] - 1-2 days Patient Instructions/Handouts: *Surgery [facility] - After Heart Catheterization - [employer] Instructions Discharge Disposition: HOME SELF-CARE
[2022-10-16] MEDS ORDERED: SODIUM CHLORIDE 0.9% 1,000 ML in EMPTY BAG 1 BAG IV SCH (23:00)
[2022-10-17] MEDS ORDERED: ASPIRIN 325 MG TAB PO ONE ×2 (05:00→07:00)
[2022-10-17] MEDS ORDERED: ATORVASTATIN 80 MG TAB PO ONE ×2 (05:00→07:00)
[2022-10-17] MEDS ORDERED: HEPARIN SODIUM,PORCINE 2,500 UNIT in SODIUM CHLORIDE 0.9% 250 ML IRRIGATION PRN (07:00)
[2022-10-17] MEDS ORDERED: HEPARIN SODIUM,PORCINE 10,000 UNIT in SODIUM CHLORIDE 0.9% 1,000 ML IRRIGATION PRN (07:00)
== END 2022-10-15 16:00 | disposition home or self-care (01) ==
LOC: EC 11:33 → 6NMEDSUR 14:38
PROVIDERS: ADMIT Hospitalist; ATTEND Hospitalist
DX: R07.89 Other chest pain (principal); R55 Syncope and collapse; R94.31 Abnormal electrocardiogram [ECG] [EKG]; M62.838 Other muscle spasm; J45.40 Moderate persistent asthma, uncomplicated; J44.9 Chronic obstructive pulmonary disease, unspecified; M79.7 Fibromyalgia; K21.9 Gastro-esophageal reflux disease without esophagitis; E78.5 Hyperlipidemia, unspecified; I10 Essential (primary) hypertension; F31.9 Bipolar disorder, unspecified; F41.9 Anxiety disorder, unspecified; E66.9 Obesity, unspecified; Z68.36 Body mass index [BMI] 36.0-36.9, adult; Z85.828 Personal history of other malignant neoplasm of skin; Z87.442 Personal history of urinary calculi; Z98.84 Bariatric surgery status; Z79.899 Other long term (current) drug therapy; Z79.51 Long term (current) use of inhaled steroids; Z88.0 Allergy status to penicillin; Z88.5 Allergy status to narcotic agent; Z88.1 Allergy status to other antibiotic agents
CPT/HCPCS: 96374; 99285; 36415; 94760; 93306; 80061; 80053; 83735; 84484; 85025; 85610; 85730; 71046; 93458; G0378 ×3; J2250; J2405; J2001; J3010; J1644; Q9967

== ENCOUNTER 2022-12-01 18:54 | Emergency (ER) | payer OTHER ==
[2022-12-01 19:06] VITALS: BP 132/77; PULSE 62; RESP 20; TEMP 97.9
--- NOTE | 2022-12-01 19:36 | XR ---
EXAMINATION TYPE: XR wrist complete LT DATE OF EXAM: 12/01/2022 7:31 PM INDICATION: Patient age:Female; 52 years old; Reason for study: pain; PHH. COMPARISON: None TECHNIQUE: 4 views of the left wrist. Frontal, navicular, lateral, and oblique. FINDINGS: No acute osseous pathology, joint dislocation, or joint effusion. Mild soft tissue swelling of the wrist. IMPRESSION: 1. No acute osseous pathology. 2. Mild soft tissue swelling of the wrist.
--- NOTE | 2022-12-01 19:56 | ED ---
Upper Extremity HPI - General Chief Complaint: Extremity Injury, Upper Stated Complaint: Wrist injury Time Seen by Provider: 12/01/22 19:40 Source: patient Mode of arrival: ambulatory Limitations: no limitations - History of Present Illness Initial Comments: Patient is a 52-year-old female presenting with chief complaint of left wrist pain. Patient states that 2 days ago she twisted the wrist while getting into bed and she has had pain ever since. She notes increasing pain with range of motion. Pain is worse near the base of the thumb. No numbness or tingling. No swelling or redness. - Related Data Home Medications Medication Instructions Recorded Confirmed Baclofen [Lioresal] 20 mg PO TID PRN 06/27/19 10/13/22 Albuterol Inhaler [Ventolin Hfa 2 puff INHALATION RT-Q4H PRN 08/17/22 10/13/22 Inhaler] Fluticasone Propion/Salmeterol 1 puff INHALATION RT-BID 08/17/22 10/13/22 [Advair 250-50 Diskus] Omeprazole 20 mg PO HS PRN 08/17/22 10/13/22 Previous Rx's Medication Instructions Recorded Aspirin 81 mg PO DAILY tab 10/15/22 Atorvastatin [Lipitor] 40 mg PO HS #30 tab 10/15/22 Nitroglycerin Sl Tabs [Nitrostat] 0.4 mg SUBLINGUAL Q5M PRN #30 tab 10/15/22 amLODIPine [Norvasc] 5 mg PO DAILY #30 tab 10/15/22 Allergies Allergy/AdvReac Type Severity Reaction Status Date / Time codeine Allergy couldnt Verified 12/01/22 19:06 breathe Penicillins Allergy Rash/Hives Verified 12/01/22 19:06 clindamycin HCl AdvReac Itching Verified 12/01/22 19:06 [From Cleocin] clindamycin palmitate HCl AdvReac Itching Verified 12/01/22 19:06 [From Cleocin] clindamycin phosphate AdvReac Itching Verified 12/01/22 19:06 [From Cleocin] escitalopram oxalate AdvReac SEVERE Verified 12/01/22 19:06 [From Lexapro] HEADACHE levofloxacin [From Levaquin] AdvReac Itching Verified 12/01/22 19:06 Review of Systems ROS Statement: Those systems with pertinent positive or pertinent negative responses have been documented in the HPI. ROS Other: All systems not noted in ROS Statement are negative. Past Medical History Past Medical History: Asthma, Blood Disorder, Cancer, Chest Pain / Angina, COPD, Fibromyalgia, GERD/Reflux, Hyperlipidemia, Hypertension, Osteoarthritis (OA), Renal Disease, Syncope Additional Past Medical History / Comment(s): VERTIGO, anemia with blood transfusion in 2003, skin CA on face, arthritis generalized , hx syncope ,GS 2 per labs. , HX PMB, Kidney stones History of Any Multi-Drug Resistant Organisms: None Reported Past Surgical History: Bariatric Surgery, Cholecystectomy, Hernia Repair, Orthopedic Surgery, Tubal Ligation Additional Past Surgical History / Comment(s): GANGLION CYST FROM LT WRIST, CLAIRE-EN-Y 1999, arthritis on left hand bone removed by thumb, incisional hernia repair, colonoscopy, EGD, D&C Past Anesthesia/Blood Transfusion Reactions: No Reported Reaction Additional Past Anesthesia/Blood Transfusion Reaction / Comment(s): blood transfusion no issues Past Psychological History: Anxiety, Bipolar, Depression Smoking Status: Never smoker Past Alcohol Use History: None Reported Past Drug Use History: None Reported - Past Family History Father Family Medical History: Diabetes Mellitus, Hypertension Additional Family Medical History / Comment(s): cad with 6 stents Mother Family Medical History: Fibromyalgia Sister(s) Family Medical History: Asthma Daughter(s) Family Medical History: Asthma Son(s) Additional Family Medical History / Comment(s): adhd General Exam Limitations: no limitations General appearance: alert, in no apparent distress Head exam: Present: atraumatic, normocephalic, normal inspection Eye exam: Present: normal appearance, EOMI. Absent: scleral icterus, periorbital swelling Neck exam: Present: normal inspection, full ROM Left Forearm Wrist exam: Present: normal inspection, full ROM, tenderness, tenderness over anatomical snuff box. Absent: swelling Vascular: Present: normal capillary refill Neurological exam: Present: alert, oriented X3, CN II-XII intact Psychiatric exam: Present: normal affect, normal mood Skin exam: Present: warm, dry, intact, normal color. Absent: rash Course Vital Signs 12/01/22 19:02 Temperature 97.9 F Pulse Rate 62 Respiratory 20 Rate Blood Pressure 132/77 O2 Sat by Pulse 99 Oximetry Procedures - Orthopedic Splinting/Casting Injury #1 Side: left Upper Extremity Injury Location: wrist Upper Extremity Immobilizer: thumb spica Medical Decision Making - Medical Decision Making Was pt. sent in by a medical professional or institution (, [facility], SPECIAL EDUCATION ITINERANT TEACHER, urgent care, hospital, or detention...) When possible be specific @ -No Did you speak to anyone other than the patient for history (EMS, parent, family, police, friend...)? What history was obtained from this source @ -No Did you review nursing and triage notes (agree or disagree)? Why? @ -I reviewed and agree with nursing and triage notes Were old charts reviewed (outside hosp., previous admission, EMS record, old EKG, old radiological studies, urgent care reports/EKG's, detention records)? Report findings @ -No old charts were reviewed Differential Diagnosis (chest pain, altered mental status, abdominal pain women, abdominal pain men, vaginal bleeding, weakness, fever, dyspnea, syncope, headache, dizziness, GI bleed, back pain, seizure, CVA, palpatations, mental health, musculoskeletal)? @ -Differential Musculoskeletal Muscular strain, contusion, ligament sprain, fracture, arthritis, septic arthritis, bursitis, cellulitis, muscle spasm, nerve compression, DVT, arterial occlusion, herpes zoster, electrolyte abnormality, tumor.... This is not meant to be in all inclusive list EKG interpreted by me (3pts min.). @ -As above X-rays interpreted by me (1pt min.). @ -X-ray shows no fracture or dislocation CT interpreted by me (1pt min.). @ -None done U/S interpreted by me (1pt. min.). @ -None done What testing was considered but not performed or refused? (CT, X-rays, U/S, labs)? Why? @ -None What meds were considered but not given or refused? Why? @ -None Did you discuss the management of the patient with other professionals (professionals i.e. , [facility], SPECIAL EDUCATION ITINERANT TEACHER, lab, RT, psych nurse, social services technician, bed bug exterminator, teacher, lead security officer, showcase trimmer)? Give summary @ -No Was smoking cessation discussed for >3mins.? @ -No Was critical care preformed (if so, how long)? @ -No Were there social determinants of health that impacted care today? How? (Homelessness, low income, unemployed, alcoholism, drug addiction, transportation, low edu. Level, literacy, decrease access to med. care, alf, rehab)? @ -No Was there de-escalation of care discussed even if they declined (Discuss DNR or withdrawal of care, Hospice)? DNR status @ -No What co-morbidities impacted this encounter? (DM, HTN, Smoking, COPD, CAD, Cancer, CVA, ARF, Chemo, Hep., AIDS, mental health diagnosis, sleep apnea, morbid obesity)? @ -None Was patient admitted / discharged? Hospital course, mention meds given and route, prescriptions, significant lab abnormalities, going to OR and other pertinent info. @ -Patient is a 52-year-old female presenting with chief complaint of left wrist pain after an injury while getting into bed 2 days ago. Flwoer increasing pain particularly with range of motion. On exam there is tenderness over the anatomical snuffbox. X-ray shows no fracture or dislocation. Patient is placed in thumb spica splint and instructed to follow up with orthopedics. Patient states that [facility]. Educated on supportive management at home. Follow-up with PCP. Report back to ER with any new or worsening symptoms. Discussed return parameters and answered all questions. Patient conveyed verbal understanding and agreed to the plan. I discussed this case in detail with my attending Dr. Deshpande Undiagnosed new problem with uncertain prognosis? @ -No Drug Therapy requiring intensive monitoring for toxicity (Heparin, Nitro, Insulin, Cardizem)? @ -No Were any procedures done? @ -Thumb spica splint applied Diagnosis/symptom? @ -Tenderness over the anatomical snuffbox Acute, or Chronic, or Acute on Chronic? @ -Acute Uncomplicated (without systemic symptoms) or Complicated (systemic symptoms)? @ -uncomplicated Side effects of treatment? @ -No Exacerbation, Progression, or Severe Exacerbation? @ -No Poses a threat to life or bodily function? How? (Chest pain, [place], [place], pneumonia, PE, COPD, DKA, ARF, appy, cholecystitis, CVA, Diverticulitis, Homicidal, Suicidal, threat to staff... and all critical care pts) @ -No Disposition Clinical Impression: Tenderness of anatomical snuffbox Disposition: HOME SELF-CARE Condition: Good Instructions (If sedation given, give patient instructions): Wrist Injury (ED) Additional Instructions: Follow up with orthopedics. Report back to ER with any new or worsening symptoms. Take Motrin and Tylenol as needed for pain control. Is patient prescribed a controlled substance at d/c from ED?: No Referrals: None,Stated [Primary Care Provider] - 1-2 days Giselle Khalil DO [Doctor of Osteopathic Medicine] - 1-2 days Time of Disposition: 19:56
== END 2022-12-01 20:25 | disposition home or self-care (01) ==
LOC: EC 18:54
DX: S62.001A Unspecified fracture of navicular [scaphoid] bone of right wrist, initial encounter for closed fracture (principal); J44.9 Chronic obstructive pulmonary disease, unspecified; K21.9 Gastro-esophageal reflux disease without esophagitis; I10 Essential (primary) hypertension; F41.9 Anxiety disorder, unspecified; F32.A Depression, unspecified; Z79.51 Long term (current) use of inhaled steroids; Z79.899 Other long term (current) drug therapy; Z88.5 Allergy status to narcotic agent; Z88.0 Allergy status to penicillin; Z88.6 Allergy status to analgesic agent; Z88.8 Allergy status to other drugs, medicaments and biological substances; X50.0XXA Overexertion from strenuous movement or load, initial encounter
CPT/HCPCS: 99283

== ENCOUNTER → 2022-12-23 | Outpatient (CLI) | payer OTHER ==
--- NOTE | 2022-12-23 13:02 | XR ---
EXAMINATION TYPE: XR lumbosacral spine min 4V DATE OF EXAM: 12/23/2022 CLINICAL HISTORY: pain COMPARISON: NONE TECHNIQUE: Frontal, lateral, and oblique images of the lumbar spine are obtained. FINDINGS: There are 5 lumbar type vertebral bodies identified. The lumbar spine shows satisfactory alignment without evidence of acute fracture or dislocation. Vertebral body heights are within normal limits. Mild scattered degenerative disc space narrowing and mild spondylosis. Moderate facet joint arthropathy. The overlying soft tissue appears unremarkable. IMPRESSION: No acute fracture or dislocation is seen in the lumbar spine.ICD 10 NO FRACTURE, INITIAL EVALUATION
== END | disposition home or self-care (01) ==
LOC: RADXRMAIN 12:18
PROVIDERS: ATTEND Family Medicine
DX: M54.31 Sciatica, right side (principal); M54.32 Sciatica, left side
CPT/HCPCS: 72110

== ENCOUNTER 2023-01-27 15:18 | Emergency (ER) | payer OTHER ==
[2023-01-27 15:46] VITALS: TEMP 98.2
[2023-01-27] MEDS ORDERED: MORPHINE SULFATE 4 MG/ML SYRINGE IM STA (18:36)
--- NOTE | 2023-01-27 19:13 | ED ---
Back Pain HPI - General Chief Complaint: Back Pain/Injury Stated Complaint: back pain Time Seen by Provider: 01/27/23 17:47 Source: patient Limitations: no limitations - History of Present Illness Initial Comments: 52-year-old female with history of degenerative back disease presents to the ED with a chief complaint of back pain. Patient known history of back pain however notes worsening of this over the past few days. Patient states pain radiates to her right leg. States that she called her orthopedic office who noted that her doctor was not in and advised her to present to the ED for further evaluation. Denies saddle anesthesia or incontinence. No urinary complaints. Denies chest pain or shortness of breath. No other complaints. - Related Data Home Medications Medication Instructions Recorded Confirmed Baclofen [Lioresal] 20 mg PO TID PRN 06/27/19 10/13/22 Albuterol Inhaler [Ventolin Hfa 2 puff INHALATION RT-Q4H PRN 08/17/22 10/13/22 Inhaler] Fluticasone Propion/Salmeterol 1 puff INHALATION RT-BID 08/17/22 10/13/22 [Advair 250-50 Diskus] Omeprazole 20 mg PO HS PRN 08/17/22 10/13/22 Previous Rx's Medication Instructions Recorded Aspirin 81 mg PO DAILY tab 10/15/22 Atorvastatin [Lipitor] 40 mg PO HS #30 tab 10/15/22 Nitroglycerin Sl Tabs [Nitrostat] 0.4 mg SUBLINGUAL Q5M PRN #30 tab 10/15/22 amLODIPine [Norvasc] 5 mg PO DAILY #30 tab 10/15/22 Allergies Allergy/AdvReac Type Severity Reaction Status Date / Time codeine Allergy couldnt Verified 01/27/23 15:46 breathe Penicillins Allergy Rash/Hives Verified 01/27/23 15:46 clindamycin HCl AdvReac Itching Verified 01/27/23 15:46 [From Cleocin] clindamycin palmitate HCl AdvReac Itching Verified 01/27/23 15:46 [From Cleocin] clindamycin phosphate AdvReac Itching Verified 01/27/23 15:46 [From Cleocin] escitalopram oxalate AdvReac SEVERE Verified 01/27/23 15:46 [From Lexapro] HEADACHE levofloxacin [From Levaquin] AdvReac Itching Verified 01/27/23 15:46 Review of Systems ROS Statement: Those systems with pertinent positive or pertinent negative responses have been documented in the HPI. ROS Other: All systems not noted in ROS Statement are negative. Past Medical History Past Medical History: Asthma, Blood Disorder, Cancer, Chest Pain / Angina, COPD, Fibromyalgia, GERD/Reflux, Hyperlipidemia, Hypertension, Osteoarthritis (OA), Renal Disease, Syncope Additional Past Medical History / Comment(s): VERTIGO, anemia with blood transfusion in 2003, skin CA on face, arthritis generalized , hx syncope ,GS 2 per labs. , HX PMB, Kidney stones History of Any Multi-Drug Resistant Organisms: None Reported Past Surgical History: Bariatric Surgery, Cholecystectomy, Hernia Repair, Orthopedic Surgery, Tubal Ligation Additional Past Surgical History / Comment(s): GANGLION CYST FROM LT WRIST, CLAIRE-EN-Y 1999, arthritis on left hand bone removed by thumb, incisional hernia repair, colonoscopy, EGD, D&C Past Anesthesia/Blood Transfusion Reactions: No Reported Reaction Additional Past Anesthesia/Blood Transfusion Reaction / Comment(s): blood transfusion no issues Past Psychological History: Anxiety, Bipolar, Depression Smoking Status: Never smoker Past Alcohol Use History: None Reported Past Drug Use History: None Reported - Past Family History Father Family Medical History: Diabetes Mellitus, Hypertension Additional Family Medical History / Comment(s): cad with 6 stents Mother Family Medical History: Fibromyalgia Sister(s) Family Medical History: Asthma Daughter(s) Family Medical History: Asthma Son(s) Additional Family Medical History / Comment(s): adhd General Exam Limitations: no limitations General appearance: alert Eye exam: Present: normal appearance Neck exam: Present: other (No midline cervical spinal tenderness to palpation) Respiratory exam: Present: normal lung sounds bilaterally Cardiovascular Exam: Present: regular rate, normal rhythm GI/Abdominal exam: Present: soft Extremities exam: Present: other (Strength and sensation equal and symmetric in bilateral upper and lower extremities.) Back exam: Present: other (No midline thoracic tenderness to palpation. Lumbar spinal tenderness to palpation at the area of L5/S1. Positive straight leg raise on the right) Neurological exam: Present: alert, oriented X3 Skin exam: Present: warm, dry Course Vital Signs 01/27/23 15:44 Temperature 98.2 F Pulse Rate 56 L Respiratory 20 Rate Blood Pressure 125/82 O2 Sat by Pulse 99 Oximetry Medical Decision Making - Medical Decision Making Was pt. sent in by a medical professional or institution (AISHA Morales, RECEPTIONIST NURSE, urgent care, hospital, or prison...) When possible be specific @ -No Did you speak to anyone other than the patient for history (EMS, parent, family, police, friend...)? What history was obtained from this source @ -No Did you review nursing and triage notes (agree or disagree)? Why? @ -I reviewed and agree with nursing and triage notes Were old charts reviewed (outside hosp., previous admission, EMS record, old EKG, old radiological studies, urgent care reports/EKG's, prison records)? Report findings @ -X-ray reviewed on 12/23/22 which showed evidence of degenerative disease, spondylosis, and joint space narrowing. Differential Diagnosis (chest pain, altered mental status, abdominal pain women, abdominal pain men, vaginal bleeding, weakness, fever, dyspnea, syncope, headache, dizziness, GI bleed, back pain, seizure, CVA, palpatations, mental health, musculoskeletal)? @ -Differential Back Pain: Strain, zoster, cauda equina syndrome, epidural abscess, vertebral osteomyelitis, discitis, fracture, subluxation, disc herniation, DJD, spinal stenosis, dissection, AAA, pancreatitis, peptic ulcer disease, pyelonephritis, kidney stone, this is not meant to be an all-inclusive list. EKG interpreted by me (3pts min.). @ -None X-rays interpreted by me (1pt min.). @ -None done CT interpreted by me (1pt min.). @ -None done U/S interpreted by me (1pt. min.). @ -None done What testing was considered but not performed or refused? (CT, X-rays, U/S, labs)? Why? @ -X-ray was considered however patient recently had an x-ray with findings as above. Since prior x-ray reports no new injuries. What meds were considered but not given or refused? Why? @ -None Did you discuss the management of the patient with other professionals (professionals i.e. AISHA Morales, RECEPTIONIST NURSE, lab, RT, psych nurse, social sciences instructor, post office markup clerk, teacher, fire management officer, case work aide)? Give summary @ -No Was smoking cessation discussed for >3mins.? @ -No Was critical care preformed (if so, how long)? @ -No Were there social determinants of health that impacted care today? How? (Homelessness, low income, unemployed, alcoholism, drug addiction, transportation, low edu. Level, literacy, decrease access to med. care, group home, rehab)? @ -No Was there de-escalation of care discussed even if they declined (Discuss DNR or withdrawal of care, Hospice)? DNR status @ -No What co-morbidities impacted this encounter? (DM, HTN, Smoking, COPD, CAD, Cancer, CVA, ARF, Chemo, Hep., AIDS, mental health diagnosis, sleep apnea, morbid obesity)? @ -None Was patient admitted / discharged? Hospital course, mention meds given and route, prescriptions, significant lab abnormalities, going to OR and other pertinent info. @ -Discharge. Patient given dose of morphine here with improvement of pain. Patient will be provided referral to pain management and advised to follow up with orthopedics as needed. Patient discharged home in stable condition. Discussed return precautions with patient who verbalizes agreement. Undiagnosed new problem with uncertain prognosis? @ -No Drug Therapy requiring intensive monitoring for toxicity (Heparin, Nitro, Insulin, Cardizem)? @ -No Were any procedures done? @ -No Diagnosis/symptom? @ -Back pain, lumbar radiculopathy Acute, or Chronic, or Acute on Chronic? @ -Acute on chronic Uncomplicated (without systemic symptoms) or Complicated (systemic symptoms)? @ -Uncomplicated Side effects of treatment? @ -No Exacerbation, Progression, or Severe Exacerbation? @ -No Poses a threat to life or bodily function? How? (Chest pain, USA, CT, pneumonia, PE, COPD, DKA, ARF, appy, cholecystitis, CVA, Diverticulitis, Homicidal, Suicidal, threat to staff... and all critical care pts) @ -No Disposition Clinical Impression: Back pain, Lumbar radiculopathy Disposition: HOME SELF-CARE Condition: Good Instructions (If sedation given, give patient instructions): Acute Low Back Pain (ED) Additional Instructions: Please return to the Emergency Department if symptoms worsen or any other concerns. Is patient prescribed a controlled substance at d/c from ED?: No Referrals: Andria Hayden MD [Primary Care Provider] - 1-2 days Time of Disposition: 19:00
[2023-01-27 20:23] VITALS: BP 110/72; PULSE 66; RESP 16
== END 2023-01-27 20:04 | disposition home or self-care (01) ==
LOC: EC 15:18
DX: M54.16 Radiculopathy, lumbar region (principal); I10 Essential (primary) hypertension; J44.9 Chronic obstructive pulmonary disease, unspecified; K21.9 Gastro-esophageal reflux disease without esophagitis; Z79.51 Long term (current) use of inhaled steroids; Z79.899 Other long term (current) drug therapy; Z88.0 Allergy status to penicillin; Z88.1 Allergy status to other antibiotic agents; Z88.5 Allergy status to narcotic agent; Z88.8 Allergy status to other drugs, medicaments and biological substances
CPT/HCPCS: 99284; 96372; J2270

== ENCOUNTER → 2023-03-22 | Outpatient (CLI) | payer OTHER ==
[2023-03-22 09:04] VITALS: BP 110/73; PULSE 53; RESP 16; TEMP 97.8
--- NOTE | 2023-03-22 14:17 | P.PAINPG ---
PQRS Measure Charge Sheet Comment: HISTORY OF PRESENT ILLNESS: 52 yr old female w at side as a referral from [facility] presents today w severe and chronic LBP x 3 yrs secondary to DDD, spondylosis and facet arthropathy without myelopathy for evaluation. Pt states pain level is provoked at 9/10 in intensity, constant, localized in the lower lumbar spine, stabbing, shooting in character w shooting pain towards the BLEs, L> R. Pain is provoked by sitting, standing, laying on her side. Pain is alleviated by chiropractic treatments semi monthly x 1 mo up until Mar 2023 which was ineffective, physician guided home exercises daily since Jan 2023 til present, heat, ice, topical, medications (Celebrex, Neurontin), repositioning and rest. Oswestry axial pain score at 27. PMH: OA, Asthma, Blood Disorder, Skin CA, Angina, COPD, Fibromyalgia, GERD, Hyperlipidemia, HTN, OA, CRF, MDD/ BiPolar/ Anxiety PSH: Nephrolithiasis, L Wrist Ganglion cystectomy, Valdemar-En-Y (1999), Incisional Hernia Repair, Colonoscopy/ EGD, D&C, Cholecystectomy, Tubal Ligation SH: Negative x3 FH: Fa- CAD w 6 Stents, DM. Mo- Fibromyalgia. Sis- Asthma. Daughter- Asthma. Son- ADHD. All: See list Meds: See list REVIEW OF ORGAN SYSTEMS: CONSTITUTIONAL: No fevers or chills. No recent weight loss. NEUROLOGICAL: + numbness and tingling along the distal extremities. No seizure disorders or headaches. MUSCULOSKELETAL: + pain PSYCHIATRIC: Denies current depression or suicidal thoughts. Physical Examinations : Constitutional : Cooperative , not in acute distress . Neurologic : Cranial nerve II to XII intact. No focal neurological deficits. Psychiatric : alert & oriented x 3. Matching mood & appropriate affect. Judgment & insight intact. Musculoskeletal : Cervical Spine Motor strength in the deltoid and biceps: Normal right side. Normal Left side Motor strength biceps and the wrist extensors: Normal right side . Normal left side Motor strength in the triceps muscle: Normal right side. Normal left side Deep tendon reflexes: Normal at the biceps. Normal at Brachioradialis. Normal at triceps Vertebral body tenderness to deep palpation over Cervical facet loading test: positive bilaterally Spurling test: positive bilaterally Neck distraction test: positive bilat erally Eitan sign: positive bilaterally Lumbar spine Motor strength lower extremities ,thigh and legs 5/5 Right side , 5/5 Left side Deep tendon reflexes : Normal Knee Jerk. Normal Ankle Jerk Vertebral body tenderness over L5 Rowan Test positive Lumbar facet Loading Test: positive Right / positive Left Range of motion of the lumbar spine Flexion 30 degrees, extension 10 degrees Straight Leg Raise test: Left/ Right positive at 35 degrees Yusuf test: positive right / positive left. Severe tenderness over the Sacroiliac joint on the Right / Left sides Gaenslen test: positive bilaterally Seated flexion test: positive bilaterally. Sacral spine : Severe tenderness over the Sacroiliac joint: right side / left side Range of motion: Flexion of the lumbar spine <60 degrees Range of motion: Extension of the lumbar spine <20 degrees Gaenslen's Test positive Santana's Test positive Yusuf test: positive right side / left side Thigh Thrust Test Sacral Thrust Test Imaging: MRI noncontrast at the lumbar spine from 02/09/23 reviewed Assessment/ Plan : Lumbar DDD Recommendation of R TFESI L6-S1. May need a series of injections for optimal pain relief. Risks, benefits of procedure discussed and patient verbalized understanding. Admits to anti- coagulant use or medical history of diabetes. Protocol for discontinuation/ continuation of medications eliazar procedure discussed. Minimal anesthesia provided, if clinically indicated, consisting of Versed and Fentanyl. Taking over narcotic agreement per pt. Would like increase in Neurontin as 300mg is not treating pain at all. Neurontin 400mg #90 w 1 RF. Use, side effects, adverse reactions and safe storage discussed. Pt acknowledged understanding. All questions answered. I have spent greater than 30 minutes on patient care today. Dr Meier was available by phone for the evaluation of this patient. The time was used to review the medical records including relevant urine studies and Prescription history (MAPs), review of the available imaging, evaluation and examination of the patient, coordination of care with the medical staff and if applicable referring physicians, as well as creation of the medical record - Pain Location Lower Back Non-Pharmacological Interventions: Heat, Ice, Physical Therapy Pharmacological Interventions: Discuss Pain Med Options, PRN Medication, Scheduled Medication, Topical Medication PQRS Narrative: Smoking Status Never smoker Home Medications: Ambulatory Orders Baclofen [Lioresal] 20 mg PO TID PRN 06/27/19 Albuterol Inhaler [Ventolin Hfa Inhaler] 2 puff INHALATION RT-Q4H PRN 08/17/22 Fluticasone Propion/Salmeterol [Advair 250-50 Diskus] 1 puff INHALATION RT-BID 08/17/22 Omeprazole 20 mg PO HS PRN 08/17/22 Aspirin 81 mg PO DAILY tab 10/15/22 Atorvastatin [Lipitor] 40 mg PO HS #30 tab 10/15/22 Nitroglycerin Sl Tabs [Nitrostat] 0.4 mg SUBLINGUAL Q5M PRN #30 tab 10/15/22 amLODIPine [Norvasc] 5 mg PO DAILY #30 tab 10/15/22 Celecoxib [CeleBREX] 200 mg PO BID 30 Days #60 cap 03/22/23 Gabapentin [Neurontin] 400 mg PO TID 30 Days #90 cap 03/22/23 Controlled Substance Measures - Controlled Substance Measures Is patient prescribed a controlled substance at discharge?: Yes When asked, does pt state using other controlled substances?: No If prescribed controlled substance>3 days was MAPS reviewed?: Yes If Rx opioid, was Start Talking consent form obtained?: Yes Was information provided regarding opioid addiction?: Yes
== END ==
LOC: PNWHC3 08:01
PROVIDERS: ATTEND Specialist
DX: M51.16 Intervertebral disc disorders with radiculopathy, lumbar region (principal); M43.16 Spondylolisthesis, lumbar region; M19.90 Unspecified osteoarthritis, unspecified site; J44.9 Chronic obstructive pulmonary disease, unspecified; K21.9 Gastro-esophageal reflux disease without esophagitis; E78.5 Hyperlipidemia, unspecified; F31.9 Bipolar disorder, unspecified; F41.9 Anxiety disorder, unspecified; I12.9 Hypertensive chronic kidney disease with stage 1 through stage 4 chronic kidney disease, or unspecified chronic kidney disease; N18.9 Chronic kidney disease, unspecified; Z85.820 Personal history of malignant melanoma of skin; Z88.5 Allergy status to narcotic agent; Z88.0 Allergy status to penicillin; Z88.8 Allergy status to other drugs, medicaments and biological substances; Z88.1 Allergy status to other antibiotic agents; Z79.51 Long term (current) use of inhaled steroids
CPT/HCPCS: 99211

== ENCOUNTER 2023-04-13 06:50 | Day surgery (SDC) | payer OTHER ==
[2023-04-07 14:43] VITALS: BMI 36.6
[~2023-04-13 06:50] MED LIST changes: +LACTATED RINGERS 1,000 ML IV SCH; -Pre Op ABX Message 1 EACH MISC MISCELLANE ONE
[2023-04-13 07:26] VITALS: RESP 16; TEMP 97.5
[2023-04-13] MEDS ORDERED: methylPREDNISolone ACETATE 80 MG/ML 1 ML VIAL ONE (08:08)
[2023-04-13] MEDS ORDERED: IOPAMIDOL M200 10 ML VIAL ONE (08:08)
--- NOTE | 2023-04-13 08:18 | P.PCN ---
Date of Procedure: 04/13/23 Procedure(s) Performed: PREOPERATIVE DIAGNOSIS: 1-Lumbar radiculopathy . 2-lumbar degenerative disc disease. POSTOPERATIVE DIAGNOSIS: 1-lumbar radiculopathy. 2-lumbar degenerative disc disease. PROCEDURE 1. Transforaminal epidural steroid injection under fluoroscopic guidance at right L5-S1 level. (Fluoroscopy images stored on file in the radiology Department ) 2. Lumbar epidurogram . ANESTHESIA: Local with 1% lidocaine 3 ml. EBL: Minimal PROCEDURE INDICATION: The patient with low back pain and radiculopathy symptoms unresponsive to conservative treatment. PROCEDURE DESCRIPTION / TECHNIQUE: The patient was seen and identified in the preoperative area. Risks, benefits, complications, and alternatives were discussed with the patient. The patient agreed to proceed with the procedure and signed the consent. IV was started, and vital signs were stable. Patient was taken to the OR and time out was completed. The patient was placed in the prone position on procedure table and a pillow was placed under the abdomen to reduce lumbar lordosis. The lumbosacral area was prepped and draped in the usual sterile fashion. Critical pause was taken. Vital signs were closely monitored during the procedure. Using oblique fluoroscopy, the chin of the ``Mynor dog at L5-S1 level was identified, and the skin and deeper tissues just below was localized with 1% lidocaine. Subsequently, a 22-gauge 3.5-inch spinal needle was advanced under a tunneled view fluoroscopic guidance just underneath the chin of the ``Mynor dog at the right L5-S1 Under lateral fluoroscopy, the needle was then advanced to the posterior border of the interforaminal space. After negative aspiration of CSF and blood and with no paresthesias, 1 mL Isovue 200 contrast dye was injected excellent epidurogram and outlining of the nerve root Subsequently, 3 mL of block solution containing 80 mg Depo-Medrol and 2 mL of 0.9% normal saline PF was injected. Needle was removed. At the end of the procedure, skin was cleansed, and bandages were applied. COMPLICATIONS:none DISPOSITION / PLANS: The patient was placed in a supine position and transferred to the recovery area in a stable condition for observation. There was no evidence of lower extremity motor or sensory deficit after the procedure. Patient was discharged from the recovery room after meeting discharge criteria. Home discharge instructions were given to the patient by the staff. The patient was reexamined prior to discharge.
[2023-04-13 09:17] VITALS: BP 114/69; PULSE 50
--- NOTE | 2023-04-13 10:09 | FL ---
EXAMINATION TYPE: FL guided pain mgmt statistic DATE OF EXAM: 04/13/2023 FLUOROSCOPY Fluoroscopy time of 15 seconds was used during transforaminal lumbar epidural injection. 1 image/s d ocument/s the procedure. dap: [id number] mGycm2.
== END 2023-04-13 09:19 | disposition home or self-care (01) ==
LOC: ORPAIN 06:50
PROVIDERS: ATTEND Specialist
DX: M51.16 Intervertebral disc disorders with radiculopathy, lumbar region (principal); M47.22 Other spondylosis with radiculopathy, cervical region; Z88.5 Allergy status to narcotic agent; Z88.0 Allergy status to penicillin; Z88.1 Allergy status to other antibiotic agents; Z88.8 Allergy status to other drugs, medicaments and biological substances
CPT/HCPCS: 64483; J1040; Q9966

== ENCOUNTER → 2023-04-27 | Outpatient (CLI) | payer OTHER ==
[2023-04-27 10:10] VITALS: BP 110/71; PULSE 56; RESP 16; TEMP 98.1
--- NOTE | 2023-04-27 13:50 | P.PAINPG ---
PQRS Measure Charge Sheet Comment: HISTORY OF PRESENT ILLNESS: 52 yr old female w at side presents today w severe and chronic LBP x 3 yrs secondary to DDD, spondylosis and facet arthropathy without myelopathy for evaluation s/p R TFESI L5-S1 #1 and medication refills. Pt states she experienced 90% pain relief x 2 wks s/p procedure. Pt states pain level is provoked at 8/10 in intensity, constant, localized in the lower lumbar spine, stabbing, shooting in character w shooting pain towards the BLEs, L> R. Pain is provoked by sitting, standing, laying on her side. Pain is alleviated by chiropractic treatments semi monthly x 1 mo up until Mar 2023 which was ineffective, physician guided home exercises daily since Jan 2023 til present, heat, ice, topical, medications, repositioning and rest. Oswestry axial pain score at 18. Interventional procedures include R TFESI L5-S1 x1 Medications include Neurontin, Celebrex, Excedrin REVIEW OF ORGAN SYSTEMS: CONSTITUTIONAL: No fevers or chills. No recent weight loss. NEUROLOGICAL: + numbness and tingling along the distal extremities. No seizure disorders or headaches. MUSCULOSKELETAL: + pain PSYCHIATRIC: Denies current depression or suicidal thoughts. Physical Examinations : Constitutional : Cooperative , not in acute distress . Neurologic : Cranial nerve II to XII intact. No focal neurological deficits. Psychiatric : alert & oriented x 3. Matching mood & appropriate affect. Judgment & insight intact. Musculoskeletal : Cervical Spine Motor strength in the deltoid and biceps: Normal right side. Normal Left side Motor strength biceps and the wrist extensors: Normal right side . Normal left side Motor strength in the triceps muscle: Normal right side. Normal left side Deep tendon reflexes: Normal at the biceps. Normal at Brachioradialis. Normal at triceps Vertebral body tenderness to deep palpation over Cervical facet loading test: positive bilaterally Spurling test: positive bilaterally Neck distraction test: positive bilaterally Eitan sign: positive bilaterally Lumbar spine Motor strength lower extremities ,thigh and legs 5/5 Right side , 5/5 Left side Deep tendon reflexes : Normal Knee Jerk. Normal Ankle Jerk Vertebral body tenderness over L5 Rowan Test positive Lumbar facet Loading Test: positive Right / positive Left Range of motion of the lumbar spine Flexion 30 degrees, extension 10 degrees Straight Leg Raise test: Left/ Right positive at 35 degrees Yusuf test: positive right / positive left. Severe tenderness over the Sacroiliac joint on the Right / Left sides Gaenslen test: positive bilaterally Seated flexion test: positive bi laterally. Sacral spine : Severe tenderness over the Sacroiliac joint: right side / left side Range of motion: Flexion of the lumbar spine <60 degrees Range of motion: Extension of the lumbar spine <20 degrees Gaenslen's Test positive Santana's Test positive Yusuf test: positive right side / left side Thigh Thrust Test Sacral Thrust Test Imaging: MRI noncontrast at the lumbar spine from 02/09/23 reviewed Assessment/ Plan : Lumbar DDD Recommendation of medication management. Celebrex #60, Neurontin 400mg #90 w 1 RF. Use, side effects, adverse reactions and safe storage discussed. Pt acknowledged understanding. All questions answered. I have spent greater than 30 minutes on patient care today. Dr Meier was available by phone for the evaluation of this patient. The time was used to review the medical records including relevant urine studies and Prescription history (MAPs), review of the available imaging, evaluation and examination of the patient, coordination of care with the medical staff and if applicable referring physicians, as well as creation of the medical record - Pain Location Right Lower Back Non-Pharmacological Interventions: Chiropractic Treatment, Heat, Inactivity, Position/Reposition Pharmacological Interventions: Epidural, PRN Medication, Scheduled Medication, Topical Medication PQRS Narrative: Smoking Status Never smoker Hx Alcohol Use (MH) No Home Medications: Ambulatory Orders Baclofen [Lioresal] 20 mg PO TID PRN 06/27/19 Metoprolol Succinate (ER) [Toprol Xl] 25 mg PO DAILY 03/22/23 Atorvastatin [Lipitor] 20 mg PO DAILY 04/07/23 Cholecalciferol [Vitamin D3 (25 Mcg = 1000 Iu)] 25 mcg PO DAILY 04/07/23 Ferrous Sulfate [Feosol] 325 mg PO DAILY 04/07/23 Celecoxib [CeleBREX] 200 mg PO BID 30 Days #60 cap 04/27/23 Gabapentin [Neurontin] 400 mg PO TID 30 Days #90 cap 04/27/23 Controlled Substance Measures - Controlled Substance Measures Is patient prescribed a controlled substance at discharge?: Yes When asked, does pt state using other controlled substances?: No If prescribed controlled substance>3 days was MAPS reviewed?: Yes
== END ==
LOC: PNWHC3 09:36
PROVIDERS: ATTEND Specialist
DX: M51.36 Other intervertebral disc degeneration, lumbar region (principal); M47.816 Spondylosis without myelopathy or radiculopathy, lumbar region; Z88.5 Allergy status to narcotic agent; Z88.0 Allergy status to penicillin; Z88.8 Allergy status to other drugs, medicaments and biological substances; Z88.1 Allergy status to other antibiotic agents
CPT/HCPCS: 99211

== ENCOUNTER 2023-05-18 05:55 | Day surgery (SDC) | payer OTHER ==
[2023-05-18] MEDS ORDERED: LACTATED RINGERS 1,000 ML IV SCH (06:12)
[2023-05-18 06:59] VITALS: TEMP 97.3
[2023-05-18] MEDS ORDERED: IOPAMIDOL M200 10 ML VIAL ONE (07:04)
[2023-05-18] MEDS ORDERED: ROPIVACAINE 5MG/ML 20ML VIAL ONE (07:04)
[2023-05-18] MEDS ORDERED: DEXAMETHASONE SOD PHOSPHATE 10 MG/ML 1 ML VIAL ONE (07:04)
--- NOTE | 2023-05-18 07:41 | P.PCN ---
Date of Procedure: 05/18/23 Description of Procedure: PREOPERATIVE DIAGNOSIS: 1-Lumbar radiculopathy . 2-lumbar degenerative disc disease. 3-lumbar spondylosis with lumbar facet arthropathy without myelopathy POSTOPERATIVE DIAGNOSIS: 1-lumbar radiculopathy. 2-lumbar degenerative disc disease. 3-lumbar spondylosis with facet arthropathy without myelopathy PROCEDURE 1. Transforaminal epidural steroid injection under fluoroscopic guidance at the left L4-5 level. (Fluoroscopy images stored on file in the radiology Department ) 2. Lumbar epidurogram . ANESTHESIA: Local with 1% lidocaine 3 ml. EBL: Minimal PROCEDURE INDICATION: The patient with low back pain and radiculopathy symptoms unresponsive to conservative treatment. PROCEDURE DESCRIPTION / TECHNIQUE: The patient was seen and identified in the preoperative area. Risks, benefits, complications, and alternatives were discussed with the patient. The patient agreed to proceed with the procedure and signed the consent. and vital signs were stable. Patient was taken to the OR and time out was completed. The patient was placed in the prone position on procedure table and a pillow was placed under the abdomen to reduce lumbar lordosis. The lumbosacral area was prepped and draped in the usual sterile fashion. Critical pause was taken. Vital signs were closely monitored during the procedure. Using oblique fluoroscopy, the chin of the `Jamiey dog at L4-5 level was identified, and the skin and deeper tissues just below was localized with 1% lidocaine. Subsequently, a 22-gauge 3.5-inch spinal needle was advanced under a tunneled view fluoroscopic guidance just underneath the chin of the `Jamiey dog at the right/left L4-5 Under lateral fluoroscopy, the needle was then advanced to the posterior border of the interforaminal space. The Needle tip in the posterior and inferior half L4-L5 intervertebral foramen in the lateral view of the fluoroscope After negative aspiration of CSF and blood and with no paresthesias, 3 mL Isovue 200 contrast dye was injected under continuous fluoroscopic ,excellent epidurogram and outlining of the nerve root Subsequently, 3 mL of block solution containing 20 mg Decadron mixed with1 mL of 0.9% normal saline PF was injected. Needle was removed . At the end of the procedure, skin was cleansed, and bandages were applied. COMPLICATIONS:none. The patient had a vasovagal reaction during the procedure which resolved quickly.Next injection she should have IV started using preoperative area. DISPOSITION / PLANS: The patient was placed in a supine position and transferred to the recovery area in a stable condition for observation. There was no evidence of lower extremity motor or sensory deficit after the procedure. Patient was discharged from the recovery room after meeting discharge criteria. Home discharge instructions were given to the patient by the staff. The patient was reexamined prior to discharge.
[2023-05-18 08:19] VITALS: BP 102/58; PULSE 52; RESP 18
--- NOTE | 2023-05-18 09:17 | FL ---
Fluoroscopy INDICATION: Pain FINDINGS: Fluoroscopy time: 15.3 seconds. Total dose area product (DAP) in uGy*m?, mGy*cm? (or similar): 0.608325 Images obtained: 2. IMPRESSION: 1. Documentation of fluoroscopy.
== END 2023-05-18 08:13 | disposition home or self-care (01) ==
LOC: ORPAIN 05:55
PROVIDERS: ATTEND Pain Medicine Interventional Pain Medicine
DX: M51.16 Intervertebral disc disorders with radiculopathy, lumbar region (principal); M47.26 Other spondylosis with radiculopathy, lumbar region; I10 Essential (primary) hypertension; J44.9 Chronic obstructive pulmonary disease, unspecified; Z88.0 Allergy status to penicillin; Z88.5 Allergy status to narcotic agent; Z79.899 Other long term (current) drug therapy; Z98.890 Other specified postprocedural states
CPT/HCPCS: 64483; J1100; Q9966; J2795

== ENCOUNTER → 2023-06-05 | Outpatient (CLI) | payer OTHER ==
[2023-06-05 08:54] VITALS: BP 110/76; PULSE 65; RESP 16
--- NOTE | 2023-06-05 12:48 | P.PAINPG ---
Objective - Vital Signs Vital signs: Intake & Output 06/04/23 06/05/23 06/05/23 18:59 06:59 18:59 Weight 98.883 kg PQRS Measure Charge Sheet Comment: HISTORY OF PRESENT ILLNESS: 52 yr old female w at side presents today w severe and chronic LBP x 3 yrs secondary to DDD, spondylosis and facet arthropathy without myelopathy for evaluation s/p L TFESI L4-L5 #2 and medication refills. Pt states she experienced 0% pain relief s/p procedure. Pt states pain level is provoked at 6/10 in intensity, constant, localized in the lower lumbar spine, predominantly axial, stabbing, shooting in character w occasional shooting pain towards the BLEs, L> R. Pain is provoked by sitting, standing, laying on her side. Pain is alleviated by chiropractic treatments semi monthly x 1 mo up until Mar 2023 which was ineffective, physician guided home exercises daily since Jan 2023 til present, heat, ice, topical, medications, repositioning and rest. Oswestry axial pain score at 26. Interventional procedures include R TFESI L5-S1 x1, L TFESI L4-L5 x1 Medications include Neurontin, Celebrex, Excedrin REVIEW OF ORGAN SYSTEMS: CONSTITUTIONAL: No fevers or chills. No recent weight loss. NEUROLOGICAL: + numbness and tingling along the distal extremities. No seizure disorders or headaches. MUSCULOSKELETAL: + pain PSYCHIATRIC: Denies current depression or suicidal thoughts. Physical Examinations : Constitutional : Cooperative , not in acute distress . Neurologic : Cranial nerve II to XII intact. No focal neurological deficits. Psychiatric : alert & oriented x 3. Matching mood & appropriate affect. Judgment & insight intact. Musculoskeletal : Cervical Spine Motor strength in the deltoid and biceps: Normal right side. Normal Left side Motor strength biceps and the wrist extensors: Normal right side . Normal left side Motor strength in the triceps muscle: Normal right side. Normal left side Deep tendon reflexes: Normal at the biceps. Normal at Brachioradialis. Normal at triceps Vertebral body tenderness to deep palpation over Cervical facet loading test: positive bilaterally Spurling test: positive bilaterally Neck distraction test: positive bilaterally Eitan sign: positive bilaterally Lumbar spine Motor strength lower extremities ,thigh and legs 5/5 Right side , 5/5 Left side Deep tendon reflexes : Normal Knee Jerk. Normal Ankle Jerk Vertebral body tenderness Rowan Test positive Lumbar facet Loading Test: positive Right / positive Left over L4-L5, L5-S1 Range of motion of the lumbar spine Flexion 30 degrees, extension 10 degrees Straight Leg Raise test: Left/ Right positive at 35 degrees Yusuf test: positive right / positive left. Severe tenderness over the Sacroiliac joint on the Right / Left sides Gaenslen test: positive bilaterally Seated flexion test: positive bilat erally. Sacral spine : Severe tenderness over the Sacroiliac joint: right side / left side Range of motion: Flexion of the lumbar spine <60 degrees Range of motion: Extension of the lumbar spine <20 degrees Gaenslen's Test positive Santana's Test positive Yusuf test: positive right side / left side Thigh Thrust Test Sacral Thrust Test Imaging: MRI noncontrast at the lumbar spine from 02/09/23 reviewed Assessment/ Plan : Lumbar DDD Recommendation of BL MBB L4-L5, L5-S1 #1. May need a series of injections for optimal pain relief. Risks, benefits of procedure discussed and patient verbalized understanding. Protocol for discontinuation/continuation of medications surrounding procedure discussed. Recommendation of medication management. Celebrex 200mg #60, [place] 7.5/325mg #90, Neurontin 400mg #90 w 1 RF. Opiate/ narcotic agreement signed 06/05/23. Use, side effects, adverse reactions and safe storage discussed. Pt acknowledged understanding. All questions answered. I have spent greater than 30 minutes on patient care today. Dr Meier was available by phone for the evaluation of this patient. The time was used to review the medical records including relevant urine studies and Prescription history (MAPs), review of the available imaging, evaluation and examination of the patient, coordination of care with the medical staff and if applicable referring physicians, as well as creation of the medical record - Pain Location Bilateral Lower Back Non-Pharmacological Interventions: Heat, Inactivity, Position/Reposition, Sitting Pharmacological Interventions: Epidural, PRN Medication, Scheduled Medication, Topical Medication PQRS Narrative: Smoking Status Never smoker Hx Alcohol Use (MH) No Home Medications: Ambulatory Orders Baclofen [Lioresal] 20 mg PO TID PRN 06/27/19 Metoprolol Succinate (ER) [Toprol Xl] 25 mg PO DAILY 03/22/23 Atorvastatin [Lipitor] 20 mg PO DAILY 04/07/23 Cholecalciferol [Vitamin D3 (25 Mcg = 1000 Iu)] 25 mcg PO DAILY 04/07/23 Ferrous Sulfate [Feosol] 325 mg PO DAILY 04/07/23 Hydrazine(Unk) 1 tab PO DIRECTED 05/16/23 Celecoxib [CeleBREX] 200 mg PO BID 30 Days #60 cap 06/05/23 Gabapentin [Neurontin] 400 mg PO TID 30 Days #90 cap 06/05/23 HYDROcodone/APAP 7.5-325MG [[place] 7.5-325] 1 tab PO TID PRN 30 Days #90 tab 06/05/23 HYDROcodone/APAP 7.5-325MG [[place] 7.5-325] 1 tab PO TID PRN 30 Days #90 tab 06/05/23 Controlled Substance Measures - Controlled Substance Measures Is patient prescribed a controlled substance at discharge?: Yes When asked, does pt state using other controlled substances?: No If prescribed controlled substance>3 days was MAPS reviewed?: Yes If Rx opioid, was Start Talking consent form obtained?: Yes Was information provided regarding opioid addiction?: Yes
== END ==
LOC: PNWHC3 08:03
PROVIDERS: ATTEND Specialist
DX: M51.36 Other intervertebral disc degeneration, lumbar region (principal); Z51.81 Encounter for therapeutic drug level monitoring; Z88.5 Allergy status to narcotic agent; Z88.0 Allergy status to penicillin; Z88.1 Allergy status to other antibiotic agents; Z88.8 Allergy status to other drugs, medicaments and biological substances
CPT/HCPCS: 80307; G0463; 99212

== ENCOUNTER 2023-07-11 08:15 | Day surgery (SDC) | payer OTHER ==
[2023-07-06 13:49] VITALS: BMI 36.6
[2023-07-11 08:57] VITALS: RESP 16; TEMP 97
[2023-07-11] MEDS ORDERED: fentaNYL (PF) 50 MCG/ML 2 ML AMP ONE (09:38)
[2023-07-11] MEDS ORDERED: methylPREDNISolone ACETATE 40 MG/ML 1 ML VIAL ONE (09:38)
[2023-07-11] MEDS ORDERED: MIDAZOLAM 2 MG/2 ML VIAL ONE (09:38)
[2023-07-11] MEDS ORDERED: ROPIVACAINE 5MG/ML 20ML VIAL ONE (09:38)
--- NOTE | 2023-07-11 09:53 | P.PCN ---
Date of Procedure: 07/11/23 Procedure(s) Performed: PREOPERATIVE DIAGNOSIS : 1- Lumbar spondylosis with Facet Arthropathy without myelopathy . 2- Lumber degenerative disc disease POSTOPERATIVE DIAGNOSIS: 1- Lumbar spondylosis with Facet Arthropathy without myelopathy . 2- Lumber degenerative disc disease PROCEDURE: Diagnostic bilateral L3 , L4 , and L5 medial branch block under fluoroscopy guidance(fluoroscopy images available in the radiology Department ) ( To target the facet joint between Bilateral L4-5 , and L5-S1 )#1st ANESTHESIA:,moderate sedation with intravenous Versed 2 mg and Fentanyl 100 mcg. (Sedation start time 09:38, end time 09:50 ) EBL: Minimal COMPLICATION: None PROCEDURE INDICATION: Chronic low back pain secondary to Facet arthropathy unresponsive to conservative treatment. PROCEDURE DESCRIPTION: the patient was seen and identified in the preop holding area , risks and benefits and possible complications of the procedure and alternative were discussed with the patient, and the patient agreed to proceed with the procedure and signed the consent and vital signs monitored during the procedure and fluoroscopy was used to maximize the benefit and accuracy of the needle placement, and sedation was given to decrease patient anxiety, patient was taken to the procedure room and placed in prone position vital signs monitored in the back prepped with chlorhexidine X3 then under strict sterile technique using a right oblique fluoroscopy ,the junction of the transverse process and the superior articulating process of the right L3 , L4 , and L5 vertebra which corresponding to the fluoroscopy image of the eye of the Mynor dog on the block side for the medial branches and subsequently , after local infiltration of skin and subcu tissuies with Ropivacaine 0.5 % , one mL at each level ,then 22-gauge Quincke-type needles , 3 needle was used , each one of them placed at the junction of the base of the transverse process and the superior articular process at the appropriate level, and the needle was advanced until the periosteum contacted, needle placement confirmed with AP oblique and lateral view and after appropriate needle placement confirmed, and after negative aspiration for heme and CSF and there was no paresthesia 1-1/2 mL of Ropivacaine 0.5% mixed with 20 mg Depo-Medrol , then half mL injected at each level after negative aspiration the needle subsequently removed and the same procedure repeated for the left side at left side at L3 , L4 and L5 levels. At the end of the procedure and the needles removed and a bandage applied after the skin was cleaned the cleaning solution patient taken to recovery room in stable condition and monitors in the recovery room for 20-30 minutes and discharged home in stable condition after discharge criteria met and patient will follow up with the pain clinic in 2-4 weeks
[2023-07-11] MEDS ORDERED: IV FLUID CONTINUATION 700 ML IV ONE (09:57)
--- NOTE | 2023-07-11 10:05 | FL ---
Fluoroscopy INDICATION: Pain FINDINGS: Fluoroscopy time: 27 seconds. Total dose area product (DAP) in uGy*m?, mGy*cm? (or similar): 0.38127 Images obtained: 5. IMPRESSION: 1. Documentation of fluoroscopy.
[2023-07-11 10:37] VITALS: BP 113/78; PULSE 55
== END 2023-07-11 10:33 | disposition home or self-care (01) ==
LOC: ORPAIN 08:15
PROVIDERS: ATTEND Specialist
DX: M47.816 Spondylosis without myelopathy or radiculopathy, lumbar region (principal); M51.36 Other intervertebral disc degeneration, lumbar region; E11.9 Type 2 diabetes mellitus without complications; G89.29 Other chronic pain; Z88.0 Allergy status to penicillin; Z88.1 Allergy status to other antibiotic agents; Z88.8 Allergy status to other drugs, medicaments and biological substances; Z79.1 Long term (current) use of non-steroidal anti-inflammatories (NSAID)
CPT/HCPCS: 81025; 84703; 64493; 64494 ×2; 99152; J2250; J1030; J3010; J2795

== ENCOUNTER → 2023-07-31 | Outpatient (CLI) | payer OTHER ==
[2023-07-31 11:04] VITALS: BP 124/72; PULSE 99; RESP 15; TEMP 97.6
--- NOTE | 2023-07-31 14:53 | P.PAINPG ---
PQRS Measure Charge Sheet Comment: HISTORY OF PRESENT ILLNESS: A 52 yr old female w at side presents today w severe and chronic LBP x 3 yrs secondary to DDD, spondylosis and facet arthropathy without myelopathy for evaluation s/p BL MBB L3-L5 #1 and medication refills. Pt states she experienced 100 % pain relief x 12 hrs s/p procedure. Pt states pain level is provoked at 6/10 in intensity, constant, localized in the lower lumbar spine, predominantly axial, stabbing, shooting in character w occasional shooting pain towards the BLEs, L> R. Pain is provoked by sitting, standing, laying on her side. Pain is alleviated by chiropractic treatments semi monthly x 1 mo up until Mar 2023 which was ineffective, physician guided home exercises daily since Jan 2023 til present, heat, ice, topical, medications, repositioning and rest. Oswestry axial pain score at 25. Interventional procedures include R TFESI L5-S1 x1, L TFESI L4-L5 x1, BL MBB L3- L5 x1 Medications include Neurontin, Celebrex, Excedrin REVIEW OF ORGAN SYSTEMS: CONSTITUTIONAL: No fevers or chills. No recent weight loss. NEUROLOGICAL: + numbness and tingling along the distal extremities. No seizure disorders or headaches. MUSCULOSKELETAL: + pain PSYCHIATRIC: Denies current depression or suicidal thoughts. Physical Examinations : Constitutional : Cooperative , not in acute distress . Neurologic : Cranial nerve II to XII intact. No focal neurological deficits. Psychiatric : alert & oriented x 3. Matching mood & appropriate affect. Judgment & insight intact. Musculoskeletal : Cervical Spine Motor strength in the deltoid and biceps: Normal right side. Normal Left side Motor strength biceps and the wrist extensors: Normal right side . Normal left side Motor strength in the triceps muscle: Normal right side. Normal left side Deep tendon reflexes: Normal at the biceps. Normal at Brachioradialis. Normal at triceps Vertebral body tenderness to deep palpation over Cervical facet loading test: positive bilaterally Spurling test: positive bilaterally Neck distraction test: positive bilaterally Eitan sign: positive bilaterally Lumbar spine Motor strength lower extremities ,thigh and legs 5/5 Right side , 5/5 Left side Deep tendon reflexes : Normal Knee Jerk. Normal Ankle Jerk Vertebral body tenderness Rowan Test positive Lumbar facet Loading Test: positive Right / positive Left over L4-L5, L5-S1 Range of motion of the lumbar spine Flexion 30 degrees, extension 10 degrees Straight Leg Raise test: Left/ Right positive at 35 degrees Yusuf test: positive right / positive left. Severe tenderness over the Sacroiliac joint on the Right / Left sides Gaenslen test: positive bilaterally Seated flexion test: positive bilaterally. Sacral spine : Severe tenderness over the Sacroiliac joint: right side / left side Range of motion: Flexion of the lumbar spine <60 degrees Range of motion: Extension of the lumbar spine <20 degrees Gaenslen's Test positive Santana's Test positive Yusuf test: positive right side / left side Thigh Thrust Test Sacral Thrust Test Imaging: MRI noncontrast at the lumbar spine from 02/09/23 reviewed Assessment/ Plan : Lumbar DDD Recommendation of BL MBB L4-L5, L5-S1 #2. May need a series of injections for optimal pain relief. Risks, benefits of procedure discussed and patient verbalized understanding. Protocol for discontinuation/continuation of medications surrounding procedure discussed. Recommendation of medication management. Celebrex 200mg #60, [place] 7.5/325mg #90, Neurontin 400mg #90 w 1 RF. Opiate/ narcotic agreement signed 06/05/23. Use, side effects, adverse reactions and safe storage discussed. Pt acknowledged understanding. All questions answered. I have spent greater than 30 minutes on patient care today. Dr Meier was available by phone for the evaluation of this patient. The time was used to review the medical records including relevant urine studies and Prescription history (MAPs), review of the available imaging, evaluation and examination of the patient, coordination of care with the medical staff and if applicable referring physicians, as well as creation of the medical record PQRS Narrative: Smoking Status Never smoker Hx Alcohol Use (MH) No Home Medications: Ambulatory Orders Baclofen [Lioresal] 20 mg PO TID PRN 06/27/19 Metoprolol Succinate (ER) [Toprol Xl] 25 mg PO HS 03/22/23 Atorvastatin [Lipitor] 20 mg PO DAILY 04/07/23 Cholecalciferol [Vitamin D3 (25 Mcg = 1000 Iu)] 25 mcg PO DAILY 04/07/23 Ferrous Sulfate [Feosol] 325 mg PO DAILY 04/07/23 Celecoxib [CeleBREX] 200 mg PO BID 30 Days #60 cap 06/05/23 Gabapentin [Neurontin] 400 mg PO TID 30 Days #90 cap 06/05/23 HYDROcodone/APAP 7.5-325MG [[place] 7.5-325] 1 tab PO TID PRN 30 Days #90 tab 06/05/23 Albuterol Inhaler [Ventolin Hfa Inhaler] 1 - 2 puff INHALATION Q6H PRN 07/06/23 Aspirin 650 mg PO DIRECTED PRN 07/06/23 Fluticasone Propion/Salmeterol [Advair 250-50 Diskus] 1 inhalation PO BID 07/06/23 Magnesium Oxide [Mag-Ox] 400 mg PO DIRECTED 07/06/23 Omeprazole [PriLOSEC] 20 mg PO BID 07/06/23 Potassium Citrate [Urocit-K ER] 5 meq PO DIRECTED 07/06/23 hydrOXYzine HCL [Atarax] 50 mg PO HS PRN 07/06/23 Controlled Substance Measures - Controlled Substance Measures Is patient prescribed a controlled substance at discharge?: Yes When asked, does pt state using other controlled substances?: No If prescribed controlled substance>3 days was MAPS reviewed?: Yes
== END ==
LOC: PNWHC3 10:21
PROVIDERS: ATTEND Specialist
DX: M51.37 Other intervertebral disc degeneration, lumbosacral region (principal); Z79.82 Long term (current) use of aspirin; Z88.5 Allergy status to narcotic agent; Z88.0 Allergy status to penicillin; Z88.1 Allergy status to other antibiotic agents; Z88.8 Allergy status to other drugs, medicaments and biological substances
CPT/HCPCS: 99211

== ENCOUNTER 2023-08-15 10:58 | Day surgery (SDC) | payer OTHER ==
[2023-08-15] MEDS: LACTATED RINGERS 1,000 ML IV ONE (12:00)
[2023-08-15 12:06] VITALS: RESP 16; TEMP 96.9
[2023-08-15] MEDS ORDERED: MIDAZOLAM 2 MG/2 ML VIAL ONE (13:19)
[2023-08-15] MEDS ORDERED: methylPREDNISolone ACETATE 40 MG/ML 1 ML VIAL ONE (13:19)
[2023-08-15] MEDS ORDERED: fentaNYL (PF) 50 MCG/ML 2 ML AMP ONE (13:19)
[2023-08-15] MEDS ORDERED: ROPIVACAINE 5MG/ML 20ML VIAL ONE (13:19)
--- NOTE | 2023-08-15 13:31 | P.PCN ---
Date of Procedure: 08/15/23 Procedure(s) Performed: PREOPERATIVE DIAGNOSIS : 1- Lumbar spondylosis with Facet Arthropathy without myelopathy . 2- Lumber degenerative disc disease POSTOPERATIVE DIAGNOSIS: 1- Lumbar spondylosis with Facet Arthropathy without myelopathy . 2- Lumber degenerative disc disease PROCEDURE: Diagnostic bilateral L3 , L4 , and L5 medial branch block under fluoroscopy guidance(fluoroscopy images available in the radiology Department ) ( To target the facet joint between Bilateral L4-5 , and L5-S1 )#2nd ANESTHESIA:,moderate sedation with intravenous Versed 2 mg and Fentanyl 50 mcg. (Sedation start time 13:19 , end time 13:29 ) EBL: Minimal COMPLICATION: None PROCEDURE INDICATION: Chronic low back pain secondary to Facet arthropathy unresponsive to conservative treatment. PROCEDURE DESCRIPTION: the patient was seen and identified in the preop holding area , risks and benefits and possible complications of the procedure and alternative were discussed with the patient, and the patient agreed to proceed with the procedure and signed the consent and vital signs monitored during the procedure and fluoroscopy was used to maximize the benefit and accuracy of the needle placement, and sedation was given to decrease patient anxiety, patient was taken to the procedure room and placed in prone position vital signs monitored in the back prepped with chlorhexidine X3 then under strict sterile technique using a right oblique fluoroscopy ,the junction of the transverse process and the superior articulating process of the right L3 , L4 , and L5 vertebra which corresponding to the fluoroscopy image of the eye of the Mynor dog on the block side for the medial branches and subsequently , after local infiltration of skin and subcu tissuies with Ropivacaine 0.5 % , one mL at each level ,then 22-gauge Quincke-type needles , 3 needle was used , each one of them placed at the junction of the base of the transverse process and the superior articular process at the appropriate level, and the needle was advanced until the periosteum contacted, needle placement confirmed with AP oblique and lateral view and after appropriate needle placement confirmed, and after negative aspiration for heme and CSF and there was no paresthesia 1-1/2 mL of Ropivacaine 0.5% mixed with 20 mg Depo-Medrol , then half mL injected at each level after negative aspiration the needle subsequently removed and the same procedure repeated for the left side at left side at L3 , L4 and L5 levels. At the end of the procedure and the needles removed and a bandage applied after the skin was cleaned the cleaning solution patient taken to recovery room in stable condition and monitors in the recovery room for 20-30 minutes and discharged home in stable condition after discharge criteria met and patient will follow up with the pain clinic in 2-4 weeks
[2023-08-15] MEDS: IV FLUID CONTINUATION 1,000 ML IV ONE (13:40)
--- NOTE | 2023-08-15 14:37 | FL ---
EXAMINATION TYPE: FL guided pain mgmt statistic Intraoperative/procedural fluoroscopic services were provided. Total fluoroscopy time is 35.8 seconds with a total of 4 submitted images to PACS. Please s ee the operative/procedural note for further details. DAP: [id number] mGym2
[2023-08-15 14:38] VITALS: BP 117/75; PULSE 67
== END 2023-08-15 14:33 | disposition home or self-care (01) ==
LOC: ORPAIN 10:58
PROVIDERS: ATTEND Specialist
DX: M51.36 Other intervertebral disc degeneration, lumbar region (principal); M47.816 Spondylosis without myelopathy or radiculopathy, lumbar region; Z88.0 Allergy status to penicillin; Z88.1 Allergy status to other antibiotic agents; Z88.5 Allergy status to narcotic agent; Z88.8 Allergy status to other drugs, medicaments and biological substances; Z91.041 Radiographic dye allergy status; Z79.1 Long term (current) use of non-steroidal anti-inflammatories (NSAID)
CPT/HCPCS: 64493; 64494 ×2; 99152; J2250; J1030; J3010; J2795

== ENCOUNTER → 2023-08-31 | Outpatient (CLI) | payer OTHER ==
[2023-08-31 09:28] VITALS: RESP 16; TEMP 96.9
--- NOTE | 2023-08-31 14:15 | P.PAINPG ---
PQRS Measure Charge Sheet Comment: HISTORY OF PRESENT ILLNESS: A 52 yr old female w at side presents today w severe and chronic LBP x 3 yrs secondary to DDD, spondylosis and facet arthropathy without myelopathy for evaluation s/p BL MBB L3-L5 #2 and medication refills. Pt states she experienced 95 % pain relief x 1 wk s/p procedure. Pt states pain level is provoked at 8 /10 in intensity, constant, localized in the lower lumbar spine, predominantly axial, stabbing, shooting in character w occasional shooting pain towards the back of the BLEs. Pain is provoked by sitting, standing, laying on her side. Pain is alleviated by chiropractic treatments semi monthly x 1 mo up until Mar 2023 which was ineffective, physician guided home exercises daily since Jan 2023 til present, heat, ice, topical, medications, repositioning and rest. Oswestry axial pain score at 24. Interventional procedures include R TFESI L5-S1 x1, L TFESI L4-L5 x1, BL MBB L3- L5 x2 Medications include [place], Neurontin, Celebrex, Excedrin REVIEW OF ORGAN SYSTEMS: CONSTITUTIONAL: No fevers or chills. No recent weight loss. NEUROLOGICAL: + numbness and tingling along the distal extremities. No seizure disorders or headaches. MUSCULOSKELETAL: + pain PSYCHIATRIC: Denies current depression or suicidal thoughts. Physical Examinations : Constitutional : Cooperative , not in acute distress . Neurologic : Cranial nerve II to XII intact. No focal neurological deficits. Psychiatric : alert & oriented x 3. Matching mood & appropriate affect. Judgment & insight intact. Musculoskeletal : Cervical Spine Motor strength in the deltoid and biceps: Normal right side. Normal Left side Motor strength biceps and the wrist extensors: Normal right side . Normal left side Motor strength in the triceps muscle: Normal right side. Normal left side Deep tendon reflexes: Normal at the biceps. Normal at Brachioradialis. Normal at triceps Vertebral body tenderness to deep palpation over Cervical facet loading test: positive bilaterally Spurling test: positive bilaterally Neck distraction test: positive bilaterally Eitan sign: positive bilaterally Lumbar spine Motor strength lower extremities ,thigh and legs 5/5 Right side , 5/5 Left side Deep tendon reflexes : Normal Knee Jerk. Normal Ankle Jerk Vertebral body tenderness Rowan Test positive Lumbar facet Loading Test: positive Right / positive Left over L4-L5, L5-S1 Range of motion of the lumbar spine Flexion 30 degrees, extension 10 degrees Straight Leg Raise test: Left/ Right positive at 35 degrees Yusuf test: positive right / positive left. Severe tenderness over the Sacroiliac joint on the Right / Left sides Gaenslen test: positive bilaterally Seated flexion test: positive bilaterally. Sacral spine : Severe tenderness over the Sacroiliac joint: right side / left side Range of motion: Flexion of the lumbar spine <60 degrees Range of motion: Extension of the lumbar spine <20 degrees Gaenslen's Test positive Santana's Test positive Yusuf test: positive right side / left side Thigh Thrust Test Sacral Thrust Test Imaging: MRI noncontrast at the lumbar spine from 02/09/23 reviewed Assessment/ Plan : Lumbar DDD Recommendation of BL RFA L4-L5, L5-S1. Exhibited optimal pain relief w prior MBB procedures. Risks, benefits of procedure discussed and patient verbalized understanding. Protocol for discontinuation/continuation of medications surrounding procedure discussed. At next visit, medication management of Celebrex 200mg #60, [place] 7.5/325mg #90, Neurontin 400mg #90 w 1 RF. Opiate/ narcotic agreement signed 06/05/23. Use, side effects, adverse reactions and safe storage discussed. Pt acknowledged understanding. All questions answered. I have spent greater than 30 minutes on patient care today. Dr Meier was available by phone for the evaluation of this patient. The time was used to review the medical records including relevant urine studies and Prescription history (MAPs), review of the available imaging, evaluation and examination of the patient, coordination of care with the medical staff and if applicable referring physicians, as well as creation of the medical record PQRS Narrative: Smoking Status Never smoker Hx Alcohol Use (MH) No Home Medications: Ambulatory Orders Baclofen [Lioresal] 20 mg PO TID PRN 06/27/19 Metoprolol Succinate (ER) [Toprol Xl] 25 mg PO HS 03/22/23 Atorvastatin [Lipitor] 20 mg PO DAILY 04/07/23 Cholecalciferol [Vitamin D3 (25 Mcg = 1000 Iu)] 25 mcg PO DAILY 04/07/23 Ferrous Sulfate [Feosol] 325 mg PO DAILY 04/07/23 Albuterol Inhaler [Ventolin Hfa Inhaler] 1 - 2 puff INHALATION Q6H PRN 07/06/23 Fluticasone Propion/Salmeterol [Advair 250-50 Diskus] 1 inhalation PO BID 07/06/23 Magnesium Oxide [Mag-Ox] 400 mg PO DIRECTED 07/06/23 Omeprazole [PriLOSEC] 20 mg PO BID 07/06/23 Potassium Citrate [Urocit-K ER] 5 meq PO DIRECTED 07/06/23 Celecoxib [CeleBREX] 200 mg PO BID 30 Days #60 cap 07/31/23 Gabapentin [Neurontin] 400 mg PO TID 30 Days #90 cap 07/31/23 HYDROcodone/APAP 7.5-325MG [[place] 7.5-325] 1 tab PO TID PRN 30 Days #90 tab 07/31/23 Controlled Substance Measures - Controlled Substance Measures Is patient prescribed a controlled substance at discharge?: No
== END ==
LOC: PNWHC3 08:40
PROVIDERS: ATTEND Specialist
DX: M51.37 Other intervertebral disc degeneration, lumbosacral region (principal); Z88.5 Allergy status to narcotic agent; Z88.0 Allergy status to penicillin; Z88.1 Allergy status to other antibiotic agents; Z88.8 Allergy status to other drugs, medicaments and biological substances
CPT/HCPCS: 99211

== ENCOUNTER 2023-09-15 06:01 | Day surgery (SDC) | payer OTHER ==
[2023-09-12 10:35] VITALS: BMI 36.6
[2023-09-15 06:54] LABS: Glucose,Whole Blood 97 mg/dL (70-110)
[2023-09-15] MEDS: LACTATED RINGERS 1,000 ML IV SCH (06:57)
[2023-09-15] MEDS ORDERED: MIDAZOLAM 2 MG/2 ML VIAL ONE (07:04)
[2023-09-15] MEDS ORDERED: fentaNYL (PF) 50 MCG/ML 2 ML AMP ONE (07:04)
[2023-09-15] MEDS ORDERED: methylPREDNISolone ACETATE 40 MG/ML 1 ML VIAL ONE (07:10)
[2023-09-15] MEDS ORDERED: ROPIVACAINE 5MG/ML 20ML VIAL ONE (07:10)
[2023-09-15 07:23] VITALS: TEMP 97.1
--- NOTE | 2023-09-15 07:32 | P.PCN ---
Date of Procedure: 09/15/23 Procedure(s) Performed: PREOPERATIVE DIAGNOSIS: 1-Lumbar Spondylosis with Facet Arthropathy without myelopathy. 2- Lumber degenerative disc disease. POSTOPERATIVE DIAGNOSIS: 1- Lumbar Spondylosis with Facet Arthropathy without myelopathy. 2- Lumber degenerative disc disease. PROCEDURES : Bilateral Radiofrequency thermocoagulation, L3,L4,L5 medial branch, with fluoroscopic guidance (fluoro images available in the radiology dept) ( to denervate the facet joint at bilateral L4-5 ,and L5-S1 levels ). ANESTHESIA: Monitored anesthesia care as per anesthesia department .. EBL: Minimal PROCEDURE INDICATION: The patient with low back pain secondary to lumbar facet arthropathy who had more than 50% relief of her pain with previous diagnostic lumbar medial branch block with bupivacaine. PROCEDURE DESCRIPTION / TECHNIQUE: The patient was seen and identified in the preoperative area. Risks, benefits, complications, including but not limited to risk of infection ,bleeding , allergic reactions to the medications and no complete pain releife , and alternatives were discussed with the patient, the patient agreed to proceed with the procedure and signed the consent. IV was started. Vital signs remained stable throughout the procedure. Patient was taken to the OR and time out was completed. The patient was placed in the prone position on the procedure table. The lumber area was prepped and draped in the usual sterile fashion. . Vital signs were closely monitored during the procedure .IV sedation was used during the procedure to decrease patients anxiety. Using AP and then oblique fluoroscopy, the ``eye of the Mynor dog corresponding to the connection between the superior and transverse articular processes of right L3, L4, and L5 were identified, marked, and localized with 1% lidocaine. Subsequently, a [id number] radiofrequency cannula with a 10- mm active tip was advanced guided by fluoroscopy to each of the``eyes of the Mynor dog at right L3, L4, and L5. Each site then underwent sensory testing at 50 Hz and 0 to 1 volt and motor testing at 2.5 Hz and 0 to 3 volt with local stimulation, but no radicular symptoms down the legs. Thereafter each sites underwent radiofrequency thermocoagulation at 80 degrees celsius for 90 seconds after injecting 0.5 ml of PF Ropivacaine 1ml, then after the thermocoagulation done , 1 ml of the block solution containing Depo-Medrol 20 mg and 3 ml of Ropivacaine 0.5% was injected at the right L3 , L4 , and L5 , levels after negative aspiration of CSF and blood and with no paresthesias. Cannulas were retracted while injecting lidocaine 1% until the needle is out. The same procedure was repeated at the level of Left L3, L4, and L5 levels. At the end of the procedure, the skin was cleansed and bandages were applied. COMPLICATIONS: No acute complications. DISPOSITION / PLANS: The patient was placed in a supine position and transferred to the recovery area in a stable condition for observation and was discharged from the recovery room after meeting discharge criteria. Home discharge instructions given to the patient by the staff. The patient was reexamined prior to discharge. The patient will schedule a follow up in the clinic in 2-4 weeks.
[2023-09-15] MEDS: LACTATED RINGERS 1,000 ML IV ONE (07:35)
[2023-09-15 07:58] VITALS: BP 119/73; PULSE 61; RESP 17
--- NOTE | 2023-09-15 09:08 | FL ---
EXAMINATION TYPE: FL guided pain mgmt statistic Intraoperative/procedural fluoroscopic services were provided. Total fluoroscopy time is 2020 seconds with a total of 7 submitted images to PACS. Please s ee the operative/procedural note for further details. DAP: [id number] mGym2
== END 2023-09-15 08:10 | disposition home or self-care (01) ==
LOC: ORPAIN 06:01
PROVIDERS: ATTEND Specialist
DX: M47.816 Spondylosis without myelopathy or radiculopathy, lumbar region (principal); M51.36 Other intervertebral disc degeneration, lumbar region; I10 Essential (primary) hypertension; E78.5 Hyperlipidemia, unspecified; J44.9 Chronic obstructive pulmonary disease, unspecified; I20.9 Angina pectoris, unspecified; E16.2 Hypoglycemia, unspecified; E11.9 Type 2 diabetes mellitus without complications; Z88.0 Allergy status to penicillin; M79.7 Fibromyalgia; Z79.899 Other long term (current) drug therapy; Z98.890 Other specified postprocedural states; Z88.8 Allergy status to other drugs, medicaments and biological substances; Z88.1 Allergy status to other antibiotic agents; Z88.5 Allergy status to narcotic agent
CPT/HCPCS: 64635; 64636 ×2; 99152; J2250; J1030; J3010; J2795

== ENCOUNTER → 2023-09-25 | Outpatient (CLI) | payer OTHER ==
[2023-09-25 11:33] VITALS: BP 132/68; PULSE 58; RESP 15; TEMP 98.4
--- NOTE | 2023-09-25 14:19 | P.PAINPG ---
PQRS Measure Charge Sheet Comment: HISTORY OF PRESENT ILLNESS: A 53 yr old female w at side presents today w severe and chronic LBP x 3 yrs secondary to DDD, spondylosis and facet arthropathy without myelopathy for evaluation s/p BL RFA L3-L5 and medication refills. Pt states she experienced 90 % pain relief s/p procedure. Pt states pain level is provoked at 7 /10 in intensity, constant, localized in the lower lumbar spine, predominantly axial, stabbing, shooting in character without shooting pain. Pain is provoked by sitting, standing, laying on her side. Pain is alleviated by chiropractic treatments semi monthly x 1 mo up until Mar 2023 which was ineffective, physician guided home exercises daily since Jan 2023 til present, heat, ice, topical, medications, repositioning and rest. Oswestry axial pain score at 22. Interventional procedures include R TFESI L5-S1 x1, L TFESI L4-L5 x1, BL RFA L3- L5 (Sep 2023) Medications include [place], Neurontin, Celebrex, Excedrin REVIEW OF ORGAN SYSTEMS: CONSTITUTIONAL: No fevers or chills. No recent weight loss. NEUROLOGICAL: + numbness and tingling along the distal extremities. No seizure disorders or headaches. MUSCULOSKELETAL: + pain PSYCHIATRIC: Denies current depression or suicidal th oughts. Physical Examinations : Constitutional : Cooperative , not in acute distress . Neurologic : Cranial nerve II to XII intact. No focal neurological deficits. Psychiatric : alert & oriented x 3. Matching mood & appropriate affect. Judgment & insight intact. Musculoskeletal : Cervical Spine Motor strength in the deltoid and biceps: Normal right side. Normal Left side Motor strength biceps and the wrist extensors: Normal right side . Normal left side Motor strength in the triceps muscle: Normal right side. Normal left side Deep tendon reflexes: Normal at the biceps. Normal at Brachioradialis. Normal at triceps Vertebral body tenderness to deep palpation over Cervical facet loading test: positive bilaterally Spurling test: positive bilaterally Neck distraction test: positive bilaterally Eitan sign: positive bilaterally Lumbar spine Motor strength lower extremities ,thigh and legs 5/5 Right side , 5/5 Left side Deep tendon reflexes : Normal Knee Jerk. Normal Ankle Jerk Vertebral body tenderness Rowan Test positive Lumbar facet Loading Test: positive Right / positive Left Range of motion of the lumbar spine Flexion 30 degrees, extension 10 degrees Straight Leg Raise test: Left/ Right positive at 35 degrees Yusuf test: positive right / positive left. Severe tenderness over the Sacroiliac joint on the Right / Left sides Gaenslen test: positive bilaterally Seated flexion test: positive bilaterally. Sacral spine : Severe tenderness over the Sacroiliac joint: right side / left side Range of motion: Flexion of the lumbar spine <60 degrees Range of motion: Extension of the lumbar spine <20 degrees Gaenslen's Test positive Santana's Test positive Yusuf test: positive right side / left side Thigh Thrust Test Sacral Thrust Test Imaging: MRI noncontrast at the lumbar spine from 02/09/23 reviewed Assessment/ Plan : Lumbar DDD Recommendation of medication management of Celebrex 200mg #60, [place] 7.5/325mg #90, Neurontin 400mg #90 w 1 RF. Opiate/ narcotic agreement signed 06/05/23. Use, side effects, adverse reactions and safe storage discussed. Pt acknowledged understanding. All questions answered. I have spent greater than 30 minutes on patient care today. Dr Meier was available by phone for the evaluation of this patient. The time was used to review the medical records including relevant urine studies and Prescription history (MAPs), review of the available imaging, evaluation and examination of the patient, coordination of care with the medical staff and if applicable referring physicians, as well as creation of the medical record - Pain Location Bilateral Lower Back Non-Pharmacological Interventions: Inactivity, Position/Reposition Pharmacological Interventions: Epidural, Scheduled Medication PQRS Narrative: Smoking Status Never smoker Hx Alcohol Use (MH) No Home Medications: Ambulatory Orders Baclofen [Lioresal] 20 mg PO TID PRN 06/27/19 Metoprolol Succinate (ER) [Toprol Xl] 25 mg PO HS 03/22/23 Atorvastatin [Lipitor] 20 mg PO DAILY 04/07/23 Cholecalciferol [Vitamin D3 (25 Mcg = 1000 Iu)] 25 mcg PO DAILY 04/07/23 Ferrous Sulfate [Feosol] 325 mg PO DAILY 04/07/23 Albuterol Inhaler [Ventolin Hfa Inhaler] 1 - 2 puff INHALATION Q6H PRN 07/06/23 Fluticasone Propion/Salmeterol [Advair 250-50 Diskus] 1 inhalation PO BID 07/06/23 Magnesium Oxide [Mag-Ox] 400 mg PO DIRECTED 07/06/23 Omeprazole [PriLOSEC] 20 mg PO BID 07/06/23 Potassium Citrate [Urocit-K ER] 5 meq PO DIRECTED 07/06/23 Multivitamins, Thera [Multivitamin (formulary)] 1 tab PO DAILY 09/12/23 Celecoxib [CeleBREX] 200 mg PO BID 30 Days #60 cap 09/25/23 Gabapentin [Neurontin] 400 mg PO TID 30 Days #90 cap 09/25/23 HYDROcodone/APAP 7.5-325MG [[place] 7.5-325] 1 tab PO TID PRN 30 Days #90 tab 09/25/23 HYDROcodone/APAP 7.5-325MG [[place] 7.5-325] 1 tab PO TID PRN 30 Days #90 tab 09/25/23 Controlled Substance Measures - Controlled Substance Measures Is patient prescribed a controlled substance at discharge?: Yes When asked, does pt state using other controlled substances?: No If prescribed controlled substance>3 days was MAPS reviewed?: Yes
== END ==
LOC: PNWHC3 09:52
PROVIDERS: ATTEND Specialist
DX: M51.36 Other intervertebral disc degeneration, lumbar region (principal); Z88.5 Allergy status to narcotic agent; Z88.0 Allergy status to penicillin; Z88.1 Allergy status to other antibiotic agents; Z88.8 Allergy status to other drugs, medicaments and biological substances
CPT/HCPCS: 99211

== ENCOUNTER → 2023-10-16 | Outpatient (CLI) | payer OTHER ==
[2023-10-16 13:24] VITALS: BP 142/79; PULSE 56; RESP 16; TEMP 97.3
--- NOTE | 2023-10-16 13:58 | P.PAINPG ---
PQRS Measure Charge Sheet Comment: HISTORY OF PRESENT ILLNESS: A 53 yr old female w at side presents today w severe and chronic LBP x 3 yrs secondary to DDD, spondylosis and facet arthropathy without myelopathy for evaluation. Pt states pain level is provoked at 9 /10 in intensity, constant, localized in the lumbar spine, predominantly axial, stabbing, shooting in character w occasional shooting pain down the back of the LEs. Pain is provoked by sitting, standing, laying on her side. Pain is alleviated by chiropractic treatments semi monthly x 1 mo up until Mar 2023 which was ineffective, physician guided home exercises daily since Jan 2023 til present, heat, ice, topical, medications, repositioning and rest. Oswestry axial pain score at 22. Interventional procedures include R TFESI L5-S1 x1, L TFESI L4-L5 x1, BL RFA L3- L5 (Sep 2023) Medications include [place], Neurontin, Celebrex, Excedrin REVIEW OF ORGAN SYSTEMS: CONSTITUTIONAL: No fevers or chills. No recent weight loss. NEUROLOGICAL: + numbness and tingling along the distal extremities. No seizure disorders or headaches. MUSCULOSKELETAL: + pain PSYCHIATRIC: Denies current depression or suicidal thoughts. Physical Examinations : Constitutional : Cooperative , not in acute distress . Neurologic : Cranial nerve II to XII intact. No focal neurological deficits. Psychiatric : alert & oriented x 3. Matching mood & appropriate affect. Judgment & insight intact. Musculoskeletal : Cervical Spine Motor strength in the deltoid and biceps: Normal right side. Normal Left side Motor strength biceps and the wrist extensors: Normal right side . Normal left side Motor strength in the triceps muscle: Normal right side. Normal left side Deep tendon reflexes: Normal at the biceps. Normal at Brachioradialis. Normal at triceps Vertebral body tenderness to deep palpation over Cervical facet loading test: positive bilaterally Spurling test: positive bilaterally Neck distraction test: positive bilaterally Eitan sign: positive bilaterally Lumbar spine Motor strength lower extremities ,thigh and legs 5/5 Right side , 5/5 Left side Deep tendon reflexes : Normal Knee Jerk. Normal Ankle Jerk Vertebral body tenderness over L5 Rowan Test positive BL L5-S1 Lumbar facet Loading Test: positive Right / positive Left Range of motion of the lumbar spine Flexion 30 degrees, extension 10 degrees Straight Leg Raise test: Left/ Right positive at 35 degrees Yusuf test: positive right / positive left. Severe tenderness over the Sacroiliac joint on the Right / Left sides Gaenslen test: positive bilaterally Seated flexion test: positive bilaterally. Sacral spine : Severe tenderness over the Sacroiliac joint: right side / left side Range of motion: Flexion of the lumbar spine <60 degrees Range of motion: Extension of the lumbar spine <20 degrees Gaenslen's Test positive Santana's Test positive Yusuf test: positive right side / left side Thigh Thrust Test Sacral Thrust Test Imaging: MRI noncontrast at the lumbar spine from 02/09/23 reviewed Assessment/ Plan : Lumbar DDD Recommendation of BL TFESI L5-S1 #1. May need a series of injections for optimal pain relief. Risks, benefits of procedure discussed and pt verbalized understanding. Protocol for discontinuation/ continuation of medications eliazar procedure discussed. Would benefit from Methyldose pack 4mg taper e-script provided. Use, side effects, adverse reactions and safe storage discussed. Pt acknowledged understanding. Appt in infusion clinic for Toradol 30mg/ mL 1 mL IM x1 now. Opiate/ narcotic agreement signed 06/05/23. All questions answered. I have spent greater than 30 minutes on patient care today. Dr Meier was a vailable by phone for the evaluation of this patient. The time was used to review the medical records including relevant urine studies and Prescription history (MAPs), review of the available imaging, evaluation and examination of the patient, coordination of care with the medical staff and if applicable referring physicians, as well as creation of the medical record PQRS Narrative: Smoking Status Never smoker Hx Alcohol Use (MH) No Home Medications: Ambulatory Orders Baclofen [Lioresal] 20 mg PO TID PRN 06/27/19 Metoprolol Succinate (ER) [Toprol Xl] 25 mg PO HS 03/22/23 Atorvastatin [Lipitor] 20 mg PO DAILY 04/07/23 Cholecalciferol [Vitamin D3 (25 Mcg = 1000 Iu)] 25 mcg PO DAILY 04/07/23 Ferrous Sulfate [Feosol] 325 mg PO DAILY 04/07/23 Albuterol Inhaler [Ventolin Hfa Inhaler] 1 - 2 puff INHALATION Q6H PRN 07/06/23 Fluticasone Propion/Salmeterol [Advair 250-50 Diskus] 1 inhalation PO BID 07/06/23 Magnesium Oxide [Mag-Ox] 400 mg PO DIRECTED 07/06/23 Omeprazole [PriLOSEC] 20 mg PO BID 07/06/23 Potassium Citrate [Urocit-K ER] 5 meq PO DIRECTED 07/06/23 Multivitamins, Thera [Multivitamin (formulary)] 1 tab PO DAILY 09/12/23 Celecoxib [CeleBREX] 200 mg PO BID 30 Days #60 cap 09/25/23 Gabapentin [Neurontin] 400 mg PO TID 30 Days #90 cap 09/25/23 HYDROcodone/APAP 7.5-325MG [[place] 7.5-325] 1 tab PO TID PRN 30 Days #90 tab 09/25/23 HYDROcodone/APAP 7.5-325MG [[place] 7.5-325] 1 tab PO TID PRN 30 Days #90 tab 09/01 11/23 methylPREDNISolone Dose Pack [Medrol Dose Pack] 4 mg PO DIRECTED 6 Days #21 tab 10/16/23 Controlled Substance Measures - Controlled Substance Measures Is patient prescribed a controlled substance at discharge?: No
== END ==
LOC: PNWHC3 12:22
PROVIDERS: ATTEND Specialist
DX: M51.36 Other intervertebral disc degeneration, lumbar region (principal); Z88.5 Allergy status to narcotic agent; Z88.0 Allergy status to penicillin; Z88.1 Allergy status to other antibiotic agents; Z88.8 Allergy status to other drugs, medicaments and biological substances
CPT/HCPCS: 99211

== ENCOUNTER → 2023-10-16 | Outpatient (CLI) | payer OTHER ==
[2023-10-16] MEDS: KETOROLAC 30 MG/ML 1 ML VIAL IM NR (13:58)
[2023-10-16 14:06] VITALS: BP 131/82; PULSE 52; RESP 16; TEMP 97.5
== END ==
LOC: PROCWHC3 13:25
PROVIDERS: ATTEND Physician Assistant Medical
DX: M47.816 Spondylosis without myelopathy or radiculopathy, lumbar region (principal)
CPT/HCPCS: 96372; J1885

== ENCOUNTER 2023-10-24 05:49 | Day surgery (SDC) | payer OTHER ==
[2023-10-20 16:25] VITALS: BMI 36.6
[2023-10-24] MEDS ORDERED: LACTATED RINGERS 1,000 ML IV SCH (06:14)
[2023-10-24 06:57] LABS: Glucose,Whole Blood 80 mg/dL (70-110)
[2023-10-24] MEDS ORDERED: IOPAMIDOL M200 10 ML VIAL ONE (07:11)
[2023-10-24] MEDS ORDERED: methylPREDNISolone ACETATE 80 MG/ML 1 ML VIAL ONE (07:11)
--- NOTE | 2023-10-24 07:22 | P.PCN ---
Date of Procedure: 10/24/23 Procedure(s) Performed: PREOPERATIVE DIAGNOSIS: 1-Lumbar radiculopathy . 2-lumbar degenerative disc disease. 3-lumbar spondylosis with lumbar facet arthropathy without myelopathy POSTOPERATIVE DIAGNOSIS: 1-lumbar radiculopathy. 2-lumbar degenerative disc disease. 3-lumbar spondylosis with facet arthropathy without myelopathy PROCEDURE 1. Transforaminal epidural steroid injection under fluoroscopic guidance at bilateral L5-S1 level. (Fluoroscopy images stored on file in the radiology Department ) 2. Lumbar epidurogram . ANESTHESIA: Local with 1% lidocaine 3 ml. EBL: Minimal PROCEDURE INDICATION: The patient with low back pain and radiculopathy symptoms unresponsive to conservative treatment. PROCEDURE DESCRIPTION / TECHNIQUE: The patient was seen and identified in the preoperative area. Risks, benefits, complications, and alternatives were discussed with the patient. The patient agreed to proceed with the procedure and signed the consent. IV was started, and vital signs were stable. Patient was taken to the OR and time out was completed. The patient was placed in the prone position on procedure table and a pillow was placed under the abdomen to reduce lumbar lordosis. The lumbosacral area was prepped and draped in the usual sterile fashion. Critical pause was taken. Vital signs were closely monitored during the procedure. Using oblique fluoroscopy, the chin of the ``Mynor dog at Right L5-S1 level was identified, and the skin and deeper tissues just below was localized with 1% lidocaine. Subsequently, a 22-gauge 5-inch spinal needle was advanced under a tunneled view fluoroscopic guidance just underneath the chin of the ``Mynor dog at the right L5-S1 Under lateral fluoroscopy, the needle was then advanced to the posterior border of the interforaminal space. After negative aspiration of CSF and blood and with no paresthesias, 1 mL Isovue 200 contrast dye was injected excellent epidurogram and outlining of the nerve root Subsequently, 3 mL of block solution containing 40 mg Depo-Medrol and 2 mL of 0.9% normal saline PF was injected. Needle was removed and the same procedure was repeated at the left L5-S1 level . At the end of the procedure, skin was cleansed, and bandages were applied. COMPLICATIONS:none DISPOSITION / PLANS: The patient was placed in a supine position and transferred to the recovery area in a stable condition for observation. There was no evidence of lower extremity motor or sensory deficit after the procedure. Patient was discharged from the recovery room after meeting discharge criteria. Home discharge instructions were given to the patient by the staff. The patient was reexamined prior to discharge.
[2023-10-24 07:25] VITALS: RESP 16; TEMP 97.1
[2023-10-24 08:10] VITALS: BP 114/70; PULSE 55
--- NOTE | 2023-10-24 09:17 | FL ---
Fluoroscopy History: TRANSFORAMINAL EPI 15 sec FL .[id number]
== END 2023-10-24 07:49 | disposition home or self-care (01) ==
LOC: ORPAIN 05:49
PROVIDERS: ATTEND Specialist
DX: M51.16 Intervertebral disc disorders with radiculopathy, lumbar region (principal); M47.26 Other spondylosis with radiculopathy, lumbar region; E11.9 Type 2 diabetes mellitus without complications; N95.9 Unspecified menopausal and perimenopausal disorder; Z88.1 Allergy status to other antibiotic agents; Z88.5 Allergy status to narcotic agent; Z88.0 Allergy status to penicillin
CPT/HCPCS: 64483; Q9966; J1010

== ENCOUNTER → 2023-11-22 | Outpatient (CLI) | payer OTHER ==
[2023-11-23 07:56] LABS: Serum Amphetamine Negative; Serum Barbiturates Negative; Serum Benzodiazepine Negative; Serum Cocaine Negative; Serum Methadone Negative; Serum Opiates Negative; Serum Phencyclidine Negative; Serum Propoxyphene Negative; Serum THC (Cannabis) Negative
== END | disposition home or self-care (01) ==
LOC: LABWHC1 09:49
PROVIDERS: ATTEND Physician Assistant Medical
DX: Z02.83 Encounter for blood-alcohol and blood-drug test (principal)
CPT/HCPCS: 36415; 80307

== ENCOUNTER → 2023-11-22 | Outpatient (CLI) | payer OTHER ==
[2023-11-22 10:39] VITALS: BP 110/57; PULSE 89; RESP 15; TEMP 98.2
--- NOTE | 2023-11-23 15:37 | P.PAINPG ---
PQRS Measure Charge Sheet Comment: HISTORY OF PRESENT ILLNESS: A 53 yr old female w at side presents today w severe and chronic LBP x 3 yrs secondary to DDD, spondylosis and facet arthropathy without myelopathy for medication refills and evaluation s/p BL TFESI L5-S1 #1. Pt states she experienced 0% pain relief s/p procedure. Pt states pain level is provoked at 7 /10 in intensity, constant, localized in the lumbar spine, predominantly axial, stabbing, shooting in character w occasional shooting pain down the back of the RLE. Pain is provoked by sitting, standing, laying on her side. Pain is alleviated by chiropractic treatments semi monthly x 1 mo up until Mar 2023 which was ineffective, physician guided home exercises daily since Jan 2023 til present, heat, ice, topical, medications, repositioning and rest. Oswestry axial pain score at 24. \\ She stated she would like more pain medication and that she isn't a "pin cushio n" for injections. Pt could not provide a urine sample for routine UDS, stating she "just went" prior to her appointment. Asked pt to hydrate to provide a urine sample, of which she had a can a coca-cola but by the visit's end, she had only drank less than half the 12 oz can. Pt's urine sample consisted of a few drops of urine insufficient to run a UDS. I provided pt a blood tox screen script for narcotic medication use, but pt again stated she is not a "pin cushion" for repeat work. Advised pt that if we do not collect a sample today, she will not have medications provided. She agreed to provide a blood tox screen on 11/22/23. Upon checking the test results on 11/23/23, they were negative for medications prescribed. Left message for pt to call back on 11/23/23 at 3:35pm. Interventional procedures include R TFESI L5-S1 x1, L TFESI L4-L5 x1, BL RFA L3- L5 (Sep 2023), BL TFESI L5-S1 x1 (Oct 2023) Medications include [place] 7.5/325mg #90, Neurontin 400mg #90, Celebrex, Excedrin REVIEW OF ORGAN SYSTEMS: CONSTITUTIONAL: No fevers or chills. No recent weight loss. NEUROLOGICAL: + numbness and tingling along the distal extremities. No seizure disorders or headaches. MUSCULOSKELETAL: + pain PSYCHIATRIC: Denies current depression or suicidal thoughts. Physical Examinations : Constitutional : Cooperative , not in acute distress . Neurologic : Cranial nerve II to XII intact. No focal neurological deficits. Psychiatric : alert & oriented x 3. Matching mood & appropriate affect. Judgment & insight intact. Musculoskeletal : Cervical Spine Motor strength in the deltoid and biceps: Normal right side. Normal Left side Motor strength biceps and the wrist extensors: Normal right side . Normal left side Motor strength in the triceps muscle: Normal right side. Normal left side Deep tendon reflexes: Normal at the biceps. Normal at Brachioradialis. Normal at triceps Vertebral body tenderness to deep palpation over Cervical facet loading test: positive bilaterally Spurling test: positive bilaterally Neck distraction test: positive bilaterally Eitan sign: positive bilaterally Lumbar spine Motor strength lower extremities ,thigh and legs 5/5 Right side , 5/5 Left side Deep tendon reflexes : Normal Knee Jerk. Normal Ankle Jerk Vertebral body tenderness over L5 Rowan Test positive BL L5-S1 Lumbar facet Loading Test: positive Right / positive Left Range of motion of the lumbar spine Flexion 30 degrees, extension 10 degrees Straight Leg Raise test: Left/ Right positive at 35 degrees Yusuf test: positive right / positive left. Severe tenderness over the Sacroiliac joint on the Right / Left sides Gaenslen test: positive bilaterally Seated flexion test: positive bilatera lly. Sacral spine : Severe tenderness over the Sacroiliac joint: right side / left side Range of motion: Flexion of the lumbar spine <60 degrees Range of motion: Extension of the lumbar spine <20 degrees Gaenslen's Test positive Santana's Test positive Yusuf test: positive right side / left side Thigh Thrust Test Sacral Thrust Test Imaging: MRI noncontrast at the lumbar spine from 02/09/23 reviewed Assessment/ Plan : Lumbar DDD Recommendation of follow up w orthopedic surgeon and medication refills. [place] 7.5/325mg #90, Neurontin 400mg #90, Celebrex w 1 RF. Use, side effects, adverse reactions and safe storage discussed. Pt acknowledged understanding. Opiate/ narcotic agreement signed 06/05/23. All questions answered. I have spent greater than 30 minutes on patient care today. Dr Meier was available by phone for the evaluation of this patient. The time was used to review the medical records including relevant urine studies and Prescription history (MAPs), review of the available imaging, evaluation and examination of the patient, coordination of care with the medical staff and if applicable referring physicians, as well as creation of the medical record - Pain Location Bilateral Lower Back Non-Pharmacological Interventions: Ice, Inactivity, Position/Reposition Pharmacological Interventions: Epidural, Scheduled Medication PQRS Narrative: Smoking Status Never smoker Hx Alcohol Use (MH) No Home Medications: Ambulatory Orders Baclofen [Lioresal] 20 mg PO TID PRN 06/27/19 Metoprolol Succinate (ER) [Toprol Xl] 12.5 mg PO HS 03/22/23 Atorvastatin [Lipitor] 20 mg PO QAM 04/07/23 Cholecalciferol [Vitamin D3 (25 Mcg = 1000 Iu)] 25 mcg PO QAM 04/07/23 Ferrous Sulfate [Feosol] 325 mg PO QAM 04/07/23 Albuterol Inhaler [Ventolin Hfa Inhaler] 1 - 2 puff INHALATION Q6H PRN 07/06/23 Fluticasone Propion/Salmeterol [Advair 250-50 Diskus] 1 inhalation PO BID 07/06/23 Magnesium Oxide [Mag-Ox] 400 mg PO QAM 07/06/23 Omeprazole [PriLOSEC] 20 mg PO BID 07/06/23 Potassium Citrate [Urocit-K ER] 5 meq PO HS 07/06/23 Multivitamins, Thera [Multivitamin (formulary)] 1 tab PO QAM 09/12/23 Celecoxib [CeleBREX] 200 mg PO BID 30 Days #60 cap 11/22/23 Gabapentin [Neurontin] 400 mg PO TID 30 Days #90 cap 11/22/23 HYDROcodone/APAP 7.5-325MG [[place] 7.5-325] 1 tab PO TID PRN 30 Days #90 tab 11/22/23 HYDROcodone/APAP 7.5-325MG [[place] 7.5-325] 1 tab PO TID PRN 30 Days #90 tab Controlled Substance Measures - Controlled Substance Measures Is patient prescribed a controlled substance at discharge?: Yes When asked, does pt state using other controlled substances?: No If prescribed controlled substance>3 days was MAPS reviewed?: Yes
== END ==
LOC: PNWHC3 08:55
PROVIDERS: ATTEND Specialist
DX: M51.37 Other intervertebral disc degeneration, lumbosacral region (principal); M47.817 Spondylosis without myelopathy or radiculopathy, lumbosacral region; Z88.5 Allergy status to narcotic agent; Z88.1 Allergy status to other antibiotic agents; Z88.0 Allergy status to penicillin; Z88.8 Allergy status to other drugs, medicaments and biological substances
CPT/HCPCS: 99211

== ENCOUNTER 2024-01-22 06:08 | Day surgery (SDC) | payer OTHER ==
[2023-11-06 12:51] VITALS: BMI 36.6
[~2024-01-22 06:08] MED LIST changes: -LACTATED RINGERS 1,000 ML IV SCH; +SODIUM CHLORIDE 0.9% 1,000 ML IV SCH
[2024-01-22] MEDS: SODIUM CHLORIDE 0.9% 500 ML 500 ML IV ONE (06:31)
[2024-01-22 06:45] VITALS: BP 125/71; PULSE 50; RESP 16; TEMP 98.1
--- NOTE | 2024-01-23 15:40 | P.EPPROC ---
- EP Procedure Note Electrophysiology Procedure Note: Diagnosis Recurrent syncope Twelve-lead EKG shows sinus rhythm left anterior fascicular block normal QT interval heart rate 46 beats a minute Tilt table test Patient was tilted upright in angle of 70 degrees per protocol Initial blood pressure 153/66 mmHg pulse rate 40 beats minute No significant change in heart rate or blood pressure There was an episode of feeling very lightheaded but at that time her blood pressure was about 127/76 mmHg and a pulse rate was higher than what it was at baseline. Her pulse rate at that time was 65 beats a minute Impression Left anterior fascicular block and sinus bradycardia No evidence for neurocardiogenic syncope
== END 2024-01-22 08:45 | disposition home or self-care (01) ==
LOC: CATHEP 06:08
PROVIDERS: ATTEND Internal Medicine Clinical Cardiac Electrophysiology
DX: I44.4 Left anterior fascicular block (principal); J45.909 Unspecified asthma, uncomplicated; M79.7 Fibromyalgia; I10 Essential (primary) hypertension; E78.5 Hyperlipidemia, unspecified; D64.9 Anemia, unspecified; Z87.891 Personal history of nicotine dependence; Z88.8 Allergy status to other drugs, medicaments and biological substances; Z88.1 Allergy status to other antibiotic agents; Z88.0 Allergy status to penicillin
CPT/HCPCS: 93660